=== PATIENT | male | born 1970 | race Caucasian/White ===

== ENCOUNTER 2017-03-03 14:37 | Inpatient (IN) | payer OTHER ==
[~2017-03-03] VITALS: Ht 172.7 cm; Wt 151.2 kg
[~2017-03-03 14:37] MED LIST: BACTRIM DS1 TAB PO; CITALOPRAM HYDR20 M1 PO; GLIPIZIDE5 MG PO; GLU500 PO; INSN SC; MEVACOR40 MG PO; NITROSTAT0.4 MG SL; PRINIVIL20 MG PO; ZOCOR20 MG PO
--- NOTE | 2017-03-03 16:13 | NUR ---
PT TO ED FOR EVAL OF R 4TH TOE PAIN. PT AWAKE AND ALERT. BREATHING EVEN UNLABORED. NO DISTRESS. PT TO H2 . SHOES REMOVED. WAITING MSE.
--- NOTE | 2017-03-03 16:40 | NUR ---
PT REQUESTING WATER. PT ALSO STS THAT HE IS NAUSEOUS. PT INFORMED THAT HE CANNOT HAVE WATER AT THIS TIME DUE TO THE NAUSEA. PT VERBALIZES UNDERSTANDING.
[2017-03-03 17:53] LABS: BASOPHIL % 0.2 % (0-2); PLATELET COUNT 306 x10^3mcL (130-400); RED CELL DISTRIBUTION WIDTH 13.4 % (11.5-14.5)
--- NOTE | 2017-03-03 17:55 | NUR ---
PT TO RADIOLOGY VIA WHEELCHAIR.
[2017-03-03 18:14] LABS: CALCIUM 8.7 mg/dL (8.5-10.1); CARBON DIOXIDE 24.6 mmol/L (21-32); CHLORIDE SERUM 103 mmol/L (98-107); GFR1 > 60 mL/min; GLUCOSE SERUM 226 mg/dL (74-106); POTASSIUM SERUM 4.1 mmol/L (3.5-5.1); SODIUM SERUM 132 mmol/L (136-145)
[2017-03-03 18:19] LABS: ALKALINE PHOSPHATASE 126 U/L (46-116); ALT/SGPT 24 U/L (16-63); AST/SGOT 19 U/L (15-37); BILIRUBIN TOTAL 0.29 mg/dL (0.20-1.00)
[2017-03-03 18:20] LABS: ALBUMIN 2.4 g/dL (3.4-5.0)
--- NOTE | 2017-03-03 19:40 | NUR ---
RECEIVED REPORT FROM DAY SHIFT RN. PT RESTING IN BED COMFORTABLY. AWAKE, ALERT AND ORIENTED. NO C/O PAIN AT THIS TIME. IV SALINE LOCK ON LAC. SAFETY MEASURES IN PLACE. SITTER AT BEDSIDE.
[2017-03-03 19:54] VITALS: BP 159/81
--- NOTE | 2017-03-03 20:08 | NUR ---
RECEIVED PATIENT FROM ED VIA TISH, A/O X 4 SPOUSE AT BEDSIDE, C/O PAIN TO R FOOT WILL MEDICATE ORDERED, TELE # 21 SR, ORIENTED PATIENT TO ROOM AND SURROUNDINGS, BED IN LOW POSITION, BED RAILS UP X 2, CALL LIGHT WITHIN REACH, WILL ENDORSE CARE TO PRIMARY NURSE JENNIFER BOWIE
[2017-03-03 20:14] LABS: T3 TOTAL 0.83 ng/mL
--- NOTE | 2017-03-03 20:15 | NUR ---
RECEIVED PT. PT RESTING IN BED WITH EYES CLOSED. C/O HEADACHE. REFUSED TYLENOL. PT STATES "JUST WANT TO EAT SOMETHING". IV ON LFA, INTACT. SAFETY MEASURES IN PLACE. INSTRUCTED PT TO CALL IF ASSISTANCE IS NEEDED. CALL LIGHT WITHIN REACH. AT BEDSIDE.
[2017-03-03 20:20] LABS: CHOLESTEROL/HDL RATIO 5.2; PHOSPHOROUS 2.4 mg/dL (2.5-4.9)
[2017-03-03 20:28] LABS: FREE T4 0.77 ng/dL (0.76-1.46)
[2017-03-03 20:30] LABS: FREE THYROXINE INDEX 1.3 ug/dL (1.4-4.5); T4(THYROXINE) 3.6 ug/dL (4.7-13.3)
[2017-03-04 06:15] VITALS: BP 150/79
[2017-03-04 06:52] LABS: CARBON DIOXIDE 24.6 mmol/L (21-32); CHLORIDE SERUM 108 mmol/L (98-107); CREATININE SERUM 0.7 mg/dL (0.7-1.3); GFR1 > 60 mL/min; GLUCOSE SERUM 100 mg/dL (74-106); PHOSPHOROUS 2.6 mg/dL (2.5-4.9); POTASSIUM SERUM 3.8 mmol/L (3.5-5.1); SODIUM SERUM 141 mmol/L (136-145)
[2017-03-04 06:54] LABS: BASOPHIL % 0.3 % (0-2); PLATELET COUNT 247 x10^3mcL (130-400); RED CELL DISTRIBUTION WIDTH 13.3 % (11.5-14.5)
--- NOTE | 2017-03-04 07:00 | NUR ---
PT SLEPT WELL DURING SHIFT. NO DISTRESS NOTED. SAFETY MEASURES MAINTAINED. ALL NEEDS ATTENDED TO. CALL LIGHT WITHIN REACH. WILL ENDORSE CONTINUITY OF CARE TO ONCOMING RN.
[2017-03-04 07:35] LABS: microscopic required? YES; urine erythrocyte 1+ (NEGATIVE)
[2017-03-04 07:42] LABS: AMPHETAMINE QUAL UR POSITIVE (NEG <=1000)
--- NOTE | 2017-03-04 08:00 | NUR ---
ALERT AND ORIENTED. BREATHING FREELY ON RA. RT FOR HX ASTHMA. NS INFUSING 100 CC HOUR. MOVES ALL EXTREMITIES FREELY. OBESE. TRACING NOTED TO RIGHT FOOT ABSCESS BETWEEN 4-5 DIGITS. DENIES PAIN AT THIS TIME. TELE # 21 NSR. CALL LIGHT WITHIN REACH.
[2017-03-04 09:44] VITALS: BP 154/85
[2017-03-04 13:11] VITALS: BP 150/78
--- NOTE | 2017-03-04 14:31 | NUR ---
DR. MARIANO TO PERFORM I&D ON RT FOOT ABSCESS. CONSENT SIGNED.
[2017-03-04 16:48] VITALS: Ht 172.7 cm; Wt 151.2 kg
[2017-03-04 17:25] VITALS: BP 136/76
--- NOTE | 2017-03-04 18:07 | NUR ---
PT HAS BEEN RESTING COMFORTABLY THIS SHIFT. SLEPT ALOT. FAMILY HAS BEEN AT BEDSIDE. NS INFUSING 100 CC HOUR. CONTINUES ON CLEOCIN AND LEVAQUIN IV ABX. INDEPENDENT W ADL'S. GETS UP TO BR. INSTRUCTED PT TO WEAR SOCKS OR HIS SHOES. NOT TO GET UP TO WALK BAREFOOT. DR. SIMMONS AND DR. CHAVEZ PERFORMED I&D TO RT FOOT BULLA. SPECIMEN WAS SENT TO LAB THIS AM FROM ABSCESS ASPIRATION BY DR. SIMMONS. NS INFUSING 100 CC HOUR. CALL LIGHT WITHIN REACH. PT ASKED IF HIS OLDEST SON COULD SPEND THE NIGHT IN THE CHAIR NEXT TO HIM FAMILY IS IN PROCESS OF MOVING AND SON WOULD HAVE TO SPEND THE NIGHT IN THE CAR. TOLD PT I WOULD ASK NIGHT CHARGE NURSE.
--- NOTE | 2017-03-04 19:28 | NUR ---
PT SEEN, RESTING IN THE BED, ALERT AND ORIENTED, DENIES HEADACHE OR DIZZINESS, BREATHING EVEN AND UNLABORED, NO SOB, LUNG SOUNDS CLEAR, ON ROOM AIR WITH NO RESP DISTRESS NOTED, ON TELE#21 NSR, DENIES CHEST PAIN, IVF INFUSING WELL, PULSES PALPABLE, NO EDEMA NOTED, MILD GENERALIZED WEAKNESS TO RLE, S/P EXCISIONAL DEBRIDEMENT TO RLE WITH EBER WRAP, ABD OBESE BUT NON-DISTENDED WITH ACTIVE BS, NO BM AT THIS TIME, DENIES ABD PAIN, VOIDING FREELY, NO DISTRESS NOTED, WILL KEEP TO MONITOR.
[2017-03-04 21:48] VITALS: BP 120/83
--- NOTE | 2017-03-05 02:52 | NUR ---
PT ASLEEP, BREATHING EVEN AND UNLABORED, NO SOB OR RESP DISTRESS NOTED, IVF INFUSING WELL, WILL KEEP TO MONITOR.
--- NOTE | 2017-03-05 05:19 | NUR ---
PT ASLEEP BUT EASILY AROUSABLE, SLEPT MOST OF NIGHT, MORNING BLOOD SUGAR-243 MG/DL WITH RISS 6 UNITS, DRESSING AND EBER WRAP TO RLE, IVF INFUSING WELL, CONDITION NO CHANGE, NO DISTRESS NOTED, WILL KEEP TO MONITOR.
[2017-03-05 06:00] VITALS: BP 112/52
[2017-03-05 06:26] VITALS: BP 133/79
--- NOTE | 2017-03-05 08:00 | NUR ---
ALERT AND ORIENTED. BREATHING FREELY ON RA. SON STAYED WITH PT LAST NIGHT. TELE # 21 NSR. NS INFUSING 100 CC HOUR. GOOD APPETITE WITH BREAKFAST. CONTACT ISOLATION FOR HX MRSA TO CLOSED WOUND 2 YEARS AGO. DENIES ANY PAIN. EBER WRAP TO RIGHT FOOT INTACT. INSTRUCTED PT NOT WALK ON FLOOR BARE FOOTED. NEEDS TO KEEP FOOT AND DRESSING CLEAN.
[2017-03-05 09:17] VITALS: BP 166/72
[2017-03-05] MEDS ORDERED: LEVAQUIN750 MG PO (14:04)
[2017-03-05 14:31] VITALS: BP 166/72
[2017-03-05] MEDS ORDERED: BLOOD GLUCOSE1 EACH MC (16:03)
[2017-03-05] MEDS ORDERED: LANCETS1 EAC2 MC (16:03)
[2017-03-05] MEDS ORDERED: FLORASTOR1 CAP PO (16:06)
--- NOTE | 2017-03-05 16:59 | NUR ---
IV DC'D TELE # 21 RETURNED TO TELE STATION. PT TO CALL [facility] TUESDAY FOR F/U JASE WITHIN 72 HOURS OF DC. PRESCRIPTIONS CALLED IN ESCRIPT. ALL DC INSTRUCTIONS REVIEWED WITH AND SIGNED BY PT. GAVE PT WOUND CARE DRESSING SUPPLIES AND INSTRUCTIONS ON APPLICATION.
== END 2017-03-05 18:00 | disposition home or self-care (01) | DRG 364 ==
LOC: ED 14:37 → DU 19:10
PROVIDERS: Emergency Medicine; ADMIT Family Medicine
PROC: 0JDQ0ZZ Extraction of Right Foot Subcutaneous Tissue and Fascia, Open Approach (ICD-10-PCS; principal; 2017-03-04)
DX: L03.115 Cellulitis of right lower limb (principal); E43 Unspecified severe protein-calorie malnutrition; R65.10 Systemic inflammatory response syndrome (SIRS) of non-infectious origin without acute organ dysfunction; E11.40 Type 2 diabetes mellitus with diabetic neuropathy, unspecified; E11.621 Type 2 diabetes mellitus with foot ulcer; E87.1 Hypo-osmolality and hyponatremia; E83.39 Other disorders of phosphorus metabolism; E11.65 Type 2 diabetes mellitus with hyperglycemia; E66.01 Morbid (severe) obesity due to excess calories; Z68.43 Body mass index [BMI] 50.0-59.9, adult; I16.0 Hypertensive urgency; E78.5 Hyperlipidemia, unspecified; J45.909 Unspecified asthma, uncomplicated; F32.9 Major depressive disorder, single episode, unspecified; F17.200 Nicotine dependence, unspecified, uncomplicated; L97.519 Non-pressure chronic ulcer of other part of right foot with unspecified severity; Z86.14 Personal history of Methicillin resistant Staphylococcus aureus infection; Z82.49 Family history of ischemic heart disease and other diseases of the circulatory system; Z72.89 Other problems related to lifestyle; Z83.3 Family history of diabetes mellitus
CPT/HCPCS: 82962; 83880; 84439; 94150; J0696; J1956; J2001; J2270; J2405; J3490; J7030; J7613; Q0092

== ENCOUNTER 2017-05-22 11:49 | Inpatient (IN) | payer OTHER ==
[~2017-05-22] VITALS: Ht 172.7 cm; Wt 159.2 kg
[~2017-05-22 11:49] MED LIST changes: +BLOOD GLUCOSE1 EACH MC; +FLORASTOR1 CAP PO; +LANCETS1 EAC2 MC; +LEVAQUIN750 MG PO
[2017-05-22 12:40] LABS: PLATELET COUNT 279 x10^3mcL (130-400); RED CELL DISTRIBUTION WIDTH 13.9 % (11.5-14.5)
[2017-05-22 12:41] LABS: BASOPHIL % 0 % (0-2); CALCIUM 8.2 mg/dL (8.5-10.1); CARBON DIOXIDE 27.3 mmol/L (21-32); CHLORIDE SERUM 99 mmol/L (98-107); CREATININE SERUM 1.2 mg/dL (0.7-1.3); GFR1 > 60 mL/min; GLUCOSE SERUM 226 mg/dL (74-106); SODIUM SERUM 132 mmol/L (136-145)
[2017-05-22 12:51] LABS: ALKALINE PHOSPHATASE 84 U/L (46-116); ALT/SGPT 15 U/L (16-63); AST/SGOT 11 U/L (15-37); BILIRUBIN TOTAL 0.2 mg/dL (0.20-1.00); TOTAL PROTEIN, SERUM 6.4 g/dL (6.4-8.2)
[2017-05-22 12:54] LABS: ALBUMIN 1.8 g/dL (3.4-5.0)
[2017-05-22 12:56] LABS: CK-MB 0.5 ng/mL (0-3.6)
[2017-05-22] MEDS ORDERED: LISINOPRIL2.5 MG (14:42)
[2017-05-22 14:52] LABS: CHOLESTEROL/HDL RATIO 4.1; MAGNESIUM 1.6 mg/dL (1.8-2.4); PHOSPHOROUS 1.5 mg/dL (2.5-4.9)
[2017-05-22 14:59] LABS: T3 TOTAL 0.59 ng/mL
[2017-05-22 15:02] LABS: FREE T4 0.87 ng/dL (0.76-1.46); FREE THYROXINE INDEX 1.7 ug/dL (1.4-4.5); T4(THYROXINE) 4.4 ug/dL (4.7-13.3)
[2017-05-22 16:05] VITALS: BP 150/70
[2017-05-22 18:45] VITALS: BP 165/63
[2017-05-22 21:38] VITALS: BP 111/62
[2017-05-23 02:00] VITALS: BP 111/62
[2017-05-23 05:22] VITALS: BP 123/57
[2017-05-23 07:32] LABS: CALCIUM 8.2 mg/dL (8.5-10.1); CARBON DIOXIDE 26.9 mmol/L (21-32); CHLORIDE SERUM 100 mmol/L (98-107); GFR1 > 60 mL/min; GLUCOSE SERUM 149 mg/dL (74-106); SODIUM SERUM 134 mmol/L (136-145)
[2017-05-23 07:48] LABS: BASOPHIL % 0.2 % (0-2); PLATELET COUNT 238 x10^3mcL (130-400); RED CELL DISTRIBUTION WIDTH 13.6 % (11.5-14.5)
[2017-05-23 09:34] VITALS: BP 133/66
[2017-05-23 13:42] VITALS: BP 128/66
[2017-05-23 16:25] VITALS: BP 120/60
[2017-05-23 21:33] VITALS: BP 109/52
[2017-05-24 06:49] VITALS: BP 115/62
[2017-05-24 06:57] LABS: BASOPHIL % 0.2 % (0-2); PLATELET COUNT 252 x10^3mcL (130-400); RED CELL DISTRIBUTION WIDTH 14.5 % (11.5-14.5)
[2017-05-24 07:12] LABS: CALCIUM 8.4 mg/dL (8.5-10.1); CARBON DIOXIDE 26.9 mmol/L (21-32); CHLORIDE SERUM 101 mmol/L (98-107); GFR1 > 60 mL/min; GLUCOSE SERUM 159 mg/dL (74-106); MAGNESIUM 2.4 mg/dL (1.8-2.4); PHOSPHOROUS 3.1 mg/dL (2.5-4.9); POTASSIUM SERUM 4.1 mmol/L (3.5-5.1); SODIUM SERUM 134 mmol/L (136-145)
[2017-05-24 09:51] VITALS: BP 139/68
[2017-05-24] MEDS ORDERED: LIPI10 PO (10:02)
[2017-05-24] MEDS ORDERED: ECO81 PO (10:03)
[2017-05-24] MEDS ORDERED: LAC PO (10:08)
[2017-05-24] MEDS ORDERED: CEPHALEXIN500 MG PO (10:13)
[2017-05-24] MEDS ORDERED: NORCO1 TA2 PO (10:37)
[2017-05-24] MEDS ORDERED: COL100 PO (10:39)
[2017-05-24 11:04] LABS: UA SPECIFIC GRAVITY 1.025 (1.005-1.035); microscopic required? YES; urine erythrocyte 1+ (NEGATIVE)
[2017-05-24 11:14] LABS: AMPHETAMINE QUAL UR NONE DETECTED (NEG <=1000)
[2017-05-24 11:47] VITALS: BP 139/68
[2017-05-24 14:29] VITALS: BP 130/69
== END 2017-05-24 15:15 | disposition home or self-care (01) | DRG 383 ==
LOC: ED 11:49 → DU 13:47
PROVIDERS: Emergency Medicine; ADMIT Family Medicine Sports Medicine
DX: L03.116 Cellulitis of left lower limb (principal); N17.0 Acute kidney failure with tubular necrosis; E43 Unspecified severe protein-calorie malnutrition; D68.69 Other thrombophilia; E11.51 Type 2 diabetes mellitus with diabetic peripheral angiopathy without gangrene; E87.1 Hypo-osmolality and hyponatremia; E11.65 Type 2 diabetes mellitus with hyperglycemia; Z68.43 Body mass index [BMI] 50.0-59.9, adult; I10 Essential (primary) hypertension; E78.5 Hyperlipidemia, unspecified; E83.42 Hypomagnesemia; E83.39 Other disorders of phosphorus metabolism; F17.210 Nicotine dependence, cigarettes, uncomplicated; Z53.29 Procedure and treatment not carried out because of patient's decision for other reasons; N50.819 Testicular pain, unspecified; E66.2 Morbid (severe) obesity with alveolar hypoventilation; Z59.0 Homelessness; Z79.4 Long term (current) use of insulin; Z79.84 Long term (current) use of oral hypoglycemic drugs; Z86.14 Personal history of Methicillin resistant Staphylococcus aureus infection; Z79.899 Other long term (current) drug therapy; Z83.3 Family history of diabetes mellitus; Z82.49 Family history of ischemic heart disease and other diseases of the circulatory system
CPT/HCPCS: 82962; 83880; 84439; 90658; 94150; J0696; J2270; J3475; J7030; J7620; Q0092

== ENCOUNTER 2017-05-27 18:24 | Emergency (ER) | payer OTHER ==
[~2017-05-27 18:24] MED LIST changes: +CEPHALEXIN500 MG PO; +COL100 PO; +ECO81 PO; +LAC PO; +LIPI10 PO; +LISINOPRIL2.5 MG; +NORCO1 TA2 PO
== END 2017-05-27 19:44 | disposition left against medical advice (07) ==
LOC: ED 18:24
DX: Z53.21 Procedure and treatment not carried out due to patient leaving prior to being seen by health care provider (principal)

== ENCOUNTER 2017-06-05 09:36 | Inpatient (IN) | payer OTHER ==
[~2017-06-05] VITALS: Ht 172.7 cm; Wt 161.0 kg
[2017-06-05 10:15] LABS: CALCIUM 8.6 mg/dL (8.5-10.1); CARBON DIOXIDE 31.1 mmol/L (21-32); CHLORIDE SERUM 104 mmol/L (98-107); CREATININE SERUM 0.8 mg/dL (0.7-1.3); GFR1 > 60 mL/min; GLUCOSE SERUM 165 mg/dL (74-106); SODIUM SERUM 136 mmol/L (136-145)
[2017-06-05 10:18] LABS: POTASSIUM SERUM 4.8 mmol/L (3.5-5.1)
[2017-06-05 10:19] LABS: BASOPHIL % 1.7 % (0-2); RED CELL DISTRIBUTION WIDTH 13.6 % (11.5-14.5)
[2017-06-05 10:21] LABS: ALKALINE PHOSPHATASE 201 U/L (46-116); ALT/SGPT 34 U/L (16-63); AST/SGOT 19 U/L (15-37); BILIRUBIN TOTAL 0.1 mg/dL (0.20-1.00)
[2017-06-05 10:22] LABS: ALBUMIN 1.5 g/dL (3.4-5.0)
[2017-06-05 10:29] LABS: PLATELET COUNT 753 x10^3mcL (130-400)
[2017-06-05 11:06] LABS: MAGNESIUM 1.6 mg/dL (1.8-2.4); PHOSPHOROUS 3.5 mg/dL (2.5-4.9)
[2017-06-05 11:09] LABS: T3 TOTAL 0.65 ng/mL
[2017-06-05 11:15] LABS: CHOLESTEROL/HDL RATIO 3.1
[2017-06-05 11:16] LABS: FREE T4 1.09 ng/dL (0.76-1.46); FREE THYROXINE INDEX 2.2 ug/dL (1.4-4.5); T4(THYROXINE) 5.3 ug/dL (4.7-13.3)
[2017-06-05 16:23] VITALS: BP 147/76
[2017-06-05 18:01] VITALS: BP 160/77
[2017-06-05 21:13] VITALS: BP 120/78
[2017-06-06 05:23] VITALS: BP 127/70
[2017-06-06 06:12] LABS: BASOPHIL % 0.5 % (0-2); RED CELL DISTRIBUTION WIDTH 14.1 % (11.5-14.5)
[2017-06-06 07:03] LABS: CALCIUM 8.8 mg/dL (8.5-10.1); CARBON DIOXIDE 29.1 mmol/L (21-32); CHLORIDE SERUM 103 mmol/L (98-107); GFR1 > 60 mL/min; GLUCOSE SERUM 137 mg/dL (74-106); MAGNESIUM 2.2 mg/dL (1.8-2.4); PHOSPHOROUS 4.6 mg/dL (2.5-4.9); POTASSIUM SERUM 5.1 mmol/L (3.5-5.1); SODIUM SERUM 137 mmol/L (136-145)
[2017-06-06 07:34] LABS: PLATELET COUNT 683 x10^3mcL (130-400)
[2017-06-06 08:37] LABS: UA SPECIFIC GRAVITY 1.025 (1.005-1.035); microscopic required? YES; urine erythrocyte 1+ (NEGATIVE)
[2017-06-06 09:00] LABS: AMPHETAMINE QUAL UR NONE DETECTED (NEG <=1000)
[2017-06-06 09:12] VITALS: BP 136/71
[2017-06-06 14:11] VITALS: BP 132/49
[2017-06-06 16:30] VITALS: BP 131/68
[2017-06-07 05:50] VITALS: BP 130/76
[2017-06-07 06:11] LABS: CALCIUM 9.1 mg/dL (8.5-10.1); CARBON DIOXIDE 32.1 mmol/L (21-32); CHLORIDE SERUM 99 mmol/L (98-107); CREATININE SERUM 1.1 mg/dL (0.7-1.3); GFR1 > 60 mL/min; GLUCOSE SERUM 326 mg/dL (74-106); MAGNESIUM 1.7 mg/dL (1.8-2.4); PHOSPHOROUS 4.3 mg/dL (2.5-4.9); POTASSIUM SERUM 4.9 mmol/L (3.5-5.1); SODIUM SERUM 135 mmol/L (136-145)
[2017-06-07 06:41] LABS: BASOPHIL % 0.2 % (0-2); PLATELET COUNT 696 x10^3mcL (130-400); RED CELL DISTRIBUTION WIDTH 13.7 % (11.5-14.5)
[2017-06-07 09:30] VITALS: BP 124/70
[2017-06-07 14:39] VITALS: BP 103/35
[2017-06-07 16:54] VITALS: BP 136/59
[2017-06-07 21:36] VITALS: BP 126/73
[2017-06-08 06:07] LABS: BASOPHIL % 0.3 % (0-2); RED CELL DISTRIBUTION WIDTH 13.6 % (11.5-14.5)
[2017-06-08 06:23] LABS: CALCIUM 8.7 mg/dL (8.5-10.1); CARBON DIOXIDE 32.4 mmol/L (21-32); CHLORIDE SERUM 102 mmol/L (98-107); CREATININE SERUM 1.2 mg/dL (0.7-1.3); GFR1 > 60 mL/min; GLUCOSE SERUM 299 mg/dL (74-106); MAGNESIUM 1.9 mg/dL (1.8-2.4); PHOSPHOROUS 3.4 mg/dL (2.5-4.9); POTASSIUM SERUM 4.7 mmol/L (3.5-5.1); SODIUM SERUM 137 mmol/L (136-145)
[2017-06-08 06:38] VITALS: BP 166/61
[2017-06-08 06:58] LABS: PLATELET COUNT 659 x10^3mcL (130-400)
[2017-06-08 09:39] VITALS: BP 162/81
[2017-06-08 10:07] VITALS: BP 144/71
[2017-06-08] MEDS ORDERED: CLA10 PO ×2 (11:27→14:25)
[2017-06-08] MEDS ORDERED: LEVAQUIN750 MG PO ×2 (11:28→14:25)
[2017-06-08] MEDS ORDERED: METOPROLOL TART25 M1 PO ×2 (11:32→14:25)
[2017-06-08] MEDS ORDERED: ROBDML PO (11:35)
[2017-06-08] MEDS ORDERED: MONTELUKAST SOD10 M1 PO (11:36)
[2017-06-08] MEDS ORDERED: LAC PO ×2 (11:36→14:25)
[2017-06-08] MEDS ORDERED: MEDDP PO ×2 (11:37→14:25)
[2017-06-08] MEDS ORDERED: MYCP TOP ×2 (11:38→14:25)
[2017-06-08] MEDS ORDERED: ADV250/50 INH ×2 (11:49→14:25)
[2017-06-08 12:12] VITALS: BP 144/71
[2017-06-08] MEDS ORDERED: LISINOPRIL2.5 MG PO (14:25)
[2017-06-08] MEDS ORDERED: CITALOPRAM HYDR20 M1 PO (14:25)
[2017-06-08] MEDS ORDERED: COL100 PO (14:25)
[2017-06-08] MEDS ORDERED: ECO81 PO (14:25)
[2017-06-08] MEDS ORDERED: LIPI10 PO (14:25)
[2017-06-08] MEDS ORDERED: GLU500 PO (14:25)
[2017-06-08] MEDS ORDERED: BLOOD GLUCOSE1 EACH MC (14:25)
[2017-06-08] MEDS ORDERED: VAS TOP (14:26)
== END 2017-06-08 14:57 | disposition home or self-care (01) | DRG 133 ==
LOC: ED 09:36 → DU 10:27 → MU 06-08 06:23
PROVIDERS: Emergency Medicine; Family Medicine; ADMIT Family Medicine Sports Medicine
DX: J96.01 Acute respiratory failure with hypoxia (principal); N17.0 Acute kidney failure with tubular necrosis; J69.0 Pneumonitis due to inhalation of food and vomit; E43 Unspecified severe protein-calorie malnutrition; D68.69 Other thrombophilia; E11.51 Type 2 diabetes mellitus with diabetic peripheral angiopathy without gangrene; E11.65 Type 2 diabetes mellitus with hyperglycemia; L03.115 Cellulitis of right lower limb; I10 Essential (primary) hypertension; E78.5 Hyperlipidemia, unspecified; Z68.43 Body mass index [BMI] 50.0-59.9, adult; M94.0 Chondrocostal junction syndrome [Tietze]; L03.116 Cellulitis of left lower limb; E20.8 Other hypoparathyroidism; F32.9 Major depressive disorder, single episode, unspecified; L30.4 Erythema intertrigo; Z79.4 Long term (current) use of insulin; Z59.0 Homelessness; Z79.84 Long term (current) use of oral hypoglycemic drugs; Z86.14 Personal history of Methicillin resistant Staphylococcus aureus infection; F17.210 Nicotine dependence, cigarettes, uncomplicated; E66.2 Morbid (severe) obesity with alveolar hypoventilation
CPT/HCPCS: 36600; 82962; 83880; 84439; 94150; J0690; J0696; J1644; J1815; J1940; J2405; J2543; J2920; J2930; J3010; J3475; J7030; J7620; J7626; Q0092

== ENCOUNTER 2017-06-17 07:50 | Emergency (ER) | payer OTHER ==
[~2017-06-17] VITALS: Ht 172.7 cm; Wt 161.1 kg
[~2017-06-17 07:50] MED LIST changes: +ADV250/50 INH; +CLA10 PO; +LISINOPRIL2.5 MG PO; +MEDDP PO; +METOPROLOL TART25 M1 PO; +MONTELUKAST SOD10 M1 PO; +MYCP TOP; +ROBDML PO; +VAS TOP
[2017-06-17 08:44] LABS: PLATELET COUNT 357 x10^3mcL (130-400); RED CELL DISTRIBUTION WIDTH 13.6 % (11.5-14.5)
[2017-06-17 08:47] LABS: CALCIUM 8.9 mg/dL (8.5-10.1); CARBON DIOXIDE 32.6 mmol/L (21-32); CHLORIDE SERUM 103 mmol/L (98-107); CREATININE SERUM 0.9 mg/dL (0.7-1.3); GFR1 > 60 mL/min; GLUCOSE SERUM 252 mg/dL (74-106); POTASSIUM SERUM 4.9 mmol/L (3.5-5.1); SODIUM SERUM 138 mmol/L (136-145)
[2017-06-17 08:48] LABS: BASOPHIL % 0 % (0-2)
[2017-06-17 08:59] LABS: ALKALINE PHOSPHATASE 145 U/L (46-116); ALT/SGPT 19 U/L (16-63); AMYLASE 34 U/L (25-115); AST/SGOT 10 U/L (15-37); BILIRUBIN TOTAL 0.21 mg/dL (0.20-1.00); CHOLESTEROL 141 mg/dL (<200); HDL CHOLESTEROL 46 mg/dL (40-60); LIPASE 156 IU/L (73-393); MAGNESIUM 1.8 mg/dL (1.8-2.4); TOTAL PROTEIN, SERUM 7.2 g/dL (6.4-8.2)
[2017-06-17 09:00] LABS: ALBUMIN 1.9 g/dL (3.4-5.0); T4(THYROXINE) 4.5 ug/dL (4.7-13.3)
[2017-06-17 09:55] LABS: AMPHETAMINE QUAL UR NONE DETECTED (NEG <=1000)
[2017-06-17 09:58] LABS: microscopic required? YES; urine erythrocyte 1+ (NEGATIVE)
[2017-06-17 10:27] VITALS: BP 172/98
== END 2017-06-17 10:35 | disposition home or self-care (01) ==
LOC: ED 07:50
PROVIDERS: Emergency Medicine
DX: I11.0 Hypertensive heart disease with heart failure (principal); I50.9 Heart failure, unspecified; E11.65 Type 2 diabetes mellitus with hyperglycemia; E78.00 Pure hypercholesterolemia, unspecified; E66.01 Morbid (severe) obesity due to excess calories; J44.1 Chronic obstructive pulmonary disease with (acute) exacerbation; F19.10 Other psychoactive substance abuse, uncomplicated; I73.9 Peripheral vascular disease, unspecified; Z79.4 Long term (current) use of insulin
CPT/HCPCS: 36600; 82962; 83880; J1940; Q0092; Q9967

== ENCOUNTER 2017-06-28 21:07 | Observation (INO) | payer OTHER ==
[~2017-06-28] VITALS: Ht 172.7 cm; Wt 161.1 kg
[2017-06-28 22:27] LABS: BASOPHIL % 0.2 % (0-2); PLATELET COUNT 388 x10^3mcL (130-400); RED CELL DISTRIBUTION WIDTH 14.2 % (11.5-14.5)
[2017-06-28 22:38] LABS: CALCIUM 8.8 mg/dL (8.5-10.1); CARBON DIOXIDE 32.1 mmol/L (21-32); CHLORIDE SERUM 105 mmol/L (98-107); GFR1 > 60 mL/min; GLUCOSE SERUM 213 mg/dL (74-106); POTASSIUM SERUM 4.7 mmol/L (3.5-5.1); SODIUM SERUM 140 mmol/L (136-145)
[2017-06-28 22:41] LABS: UA SPECIFIC GRAVITY 1.025 (1.005-1.035); microscopic required? YES; urine erythrocyte 2+ (NEGATIVE)
[2017-06-28 22:53] LABS: ALKALINE PHOSPHATASE 144 U/L (46-116); ALT/SGPT 23 U/L (16-63); AST/SGOT 10 U/L (15-37); BILIRUBIN TOTAL 0.2 mg/dL (0.20-1.00); FREE T4 0.72 ng/dL (0.76-1.46); TOTAL PROTEIN, SERUM 6.9 g/dL (6.4-8.2)
[2017-06-28 22:57] LABS: ALBUMIN 2.1 g/dL (3.4-5.0)
[2017-06-29 00:35] LABS: CHOLESTEROL/HDL RATIO 4.4; MAGNESIUM 1.9 mg/dL (1.8-2.4); PHOSPHOROUS 3.6 mg/dL (2.5-4.9)
[2017-06-29 00:42] LABS: FREE T4 0.74 ng/dL (0.76-1.46)
[2017-06-29 00:43] VITALS: BP 154/79
[2017-06-29 00:47] LABS: FREE THYROXINE INDEX 1.7 ug/dL (1.4-4.5); T4(THYROXINE) 4.4 ug/dL (4.7-13.3)
[2017-06-29 00:52] VITALS: BP 154/79
[2017-06-29 01:00] LABS: T3 TOTAL 1.02 ng/mL
[2017-06-29 01:05] LABS: AMPHETAMINE QUAL UR NONE DETECTED (NEG <=1000)
[2017-06-29 05:58] VITALS: BP 104/61
[2017-06-29 09:25] VITALS: BP 151/83
[2017-06-29] MEDS ORDERED: BACTRIM DS1 TAB PO (13:06)
[2017-06-29] MEDS ORDERED: LAC PO (13:06)
[2017-06-29 13:46] VITALS: BP 151/83
[2017-06-29 13:56] VITALS: BP 151/60
== END 2017-06-29 14:33 | disposition home or self-care (01) | DRG 143 ==
LOC: ED 21:07 → DU 23:33 → EDBEDREQ 23:34 → DU 06-29 00:25
PROVIDERS: Emergency Medicine; ADMIT Family Medicine Sports Medicine
DX: E66.2 Morbid (severe) obesity with alveolar hypoventilation (principal); N17.0 Acute kidney failure with tubular necrosis; E43 Unspecified severe protein-calorie malnutrition; E11.51 Type 2 diabetes mellitus with diabetic peripheral angiopathy without gangrene; E11.65 Type 2 diabetes mellitus with hyperglycemia; Z68.43 Body mass index [BMI] 50.0-59.9, adult; N39.0 Urinary tract infection, site not specified; I16.0 Hypertensive urgency; I10 Essential (primary) hypertension; D64.9 Anemia, unspecified; F17.210 Nicotine dependence, cigarettes, uncomplicated; F12.10 Cannabis abuse, uncomplicated; Z79.4 Long term (current) use of insulin; Z79.84 Long term (current) use of oral hypoglycemic drugs; Z59.0 Homelessness
CPT/HCPCS: 82962; 83880; 84439; 94150; G0378; J0696; J1815; J1940; J7030; J7620; Q0092

== ENCOUNTER 2017-06-30 | Emergency (ER) | payer OTHER ==
[2017-06-30 00:38] LABS: BASOPHIL % 0.4 % (0-2)
[2017-06-30 00:41] LABS: PLATELET COUNT 424 x10^3mcL (130-400); RED CELL DISTRIBUTION WIDTH 14.7 % (11.5-14.5)
[2017-06-30 00:42] LABS: CALCIUM 8.9 mg/dL (8.5-10.1); CARBON DIOXIDE 31.2 mmol/L (21-32); CHLORIDE SERUM 103 mmol/L (98-107); CREATININE SERUM 0.8 mg/dL (0.7-1.3); GFR1 > 60 mL/min; GLUCOSE SERUM 251 mg/dL (74-106); POTASSIUM SERUM 4.7 mmol/L (3.5-5.1); SODIUM SERUM 139 mmol/L (136-145)
[2017-06-30 00:45] LABS: ALKALINE PHOSPHATASE 162 U/L (46-116); ALT/SGPT 21 U/L (16-63); AST/SGOT 11 U/L (15-37); BILIRUBIN TOTAL 0.2 mg/dL (0.20-1.00); CHOLESTEROL 178 mg/dL (<200); CHOLESTEROL/HDL RATIO 4.6; HDL CHOLESTEROL 39 mg/dL (40-60); LIPASE 161 IU/L (73-393); TOTAL PROTEIN, SERUM 7.1 g/dL (6.4-8.2); TRIGLYCERIDES 138 mg/dL (<150)
[2017-06-30 00:46] LABS: ALBUMIN 2.3 g/dL (3.4-5.0)
[2017-06-30 01:09] LABS: FREE T4 0.67 ng/dL (0.76-1.46)
[2017-06-30 01:12] LABS: FREE THYROXINE INDEX 1.2 ug/dL (1.4-4.5); T3 TOTAL 0.81 ng/mL; T4(THYROXINE) 3.3 ug/dL (4.7-13.3)
[2017-06-30 04:31] LABS: PHOSPHOROUS 4.1 mg/dL (2.5-4.9)
[2017-06-30 04:31] LABS: microscopic required? YES; urine erythrocyte 1+ (NEGATIVE)
[2017-06-30 04:44] LABS: AMPHETAMINE QUAL UR NONE DETECTED (NEG <=1000)
[2017-06-30 14:30] VITALS: BP 160/78
== END 2017-06-30 14:30 | disposition home or self-care (01) ==
LOC: ED
PROVIDERS: Family Medicine Sports Medicine; Specialist
DX: I50.9 Heart failure, unspecified (principal); J45.909 Unspecified asthma, uncomplicated; E11.9 Type 2 diabetes mellitus without complications; Z79.4 Long term (current) use of insulin; Z79.84 Long term (current) use of oral hypoglycemic drugs
CPT/HCPCS: 82962; 83880; 84439; J1940; Q0092

== ENCOUNTER 2017-06-30 16:56 | Emergency (ER) | payer OTHER ==
[2017-06-30 17:01] VITALS: BP 168/101
== END 2017-06-30 18:31 | disposition left against medical advice (07) ==
LOC: ED 16:56
DX: J44.1 Chronic obstructive pulmonary disease with (acute) exacerbation (principal); I50.9 Heart failure, unspecified; E66.2 Morbid (severe) obesity with alveolar hypoventilation; E11.9 Type 2 diabetes mellitus without complications; F32.9 Major depressive disorder, single episode, unspecified

== ENCOUNTER 2017-06-30 19:19 | Inpatient (IN) | payer OTHER ==
[~2017-06-30] VITALS: Ht 172.7 cm; Wt 165.1 kg
--- NOTE | 2017-06-30 19:34 | NUR ---
PT RE-PRESENTS WITH SAME SOB COMPLAINT HE HAD EARLIER TODAY. STATES HE CANT HAVE A CPAP MACHINE UNTIL TUESDAY WHEN HE SEES HIS PCP. STATES:WILL NOT MAKE IT TILL THEN". rr SOMEWHAT SHALLOW/18/ SAT 93% ON RA.
--- NOTE | 2017-06-30 20:14 | NUR ---
PT WALKED TO BR TALKING/JOKING-NO SOB NOTED.
--- NOTE | 2017-06-30 21:20 | NUR ---
RECEIVED PT FROM ED VIA TISH, CAME IN DUE TO SOB. STATED THAT HE A PCP APPOINTMENT ON TUESDAY FOR HIS CPAP. AAOX4. DENIES HEADACHE/DIZZINESS. C/O SOB ON EXERTION AND WHEN LYING FLAT IN BED. C/O PRODUCTIVE COUGH, EXPECTORATES CLEAR PHLEGM. LUNG SOUNDS DIMINISHED ON THE BASES, PLACED ON 2LPM/NC. SHALLOW BREATHS NOTED. DENIES CHEST PAIN/PRESSURE, SR W/ BBB. DENIES ABDOMINAL DISCOMFORT. W/ +3 EDEMA ON BLE. WEAK PEDAL PULSES. W/ REDNESS ON BLE. SIDE RAILS UPX2. CALL LIGHT ON REACH. WILL ENDORSE TO PRIMARY NURSE MILLY FOR CONTINUITY OF CARE.
[2017-06-30 21:33] VITALS: BP 180/100
--- NOTE | 2017-06-30 21:55 | NUR ---
BEDSIDE HAND OFF RECEIVED FROM RESOURCE NURSE ROCKY. PATIENT IS ALERT AND ORIENTED X4, ON OXYGEN, MILD SOB ON EXERTION, RT AT BEDSIDE EVALUATING PATIENT READY TO SAL UP BIPAP MACHINE. PATIENT ACQUIANTED TO BEDSIDE EQUIPMENTS AND UNIT POLICIES. SAFETY PRECAUTIONS INITIATED. WILL CONTINUE TO MONITOR.
[2017-06-30 22:12] LABS: CHOLESTEROL/HDL RATIO 4.6; MAGNESIUM 1.7 mg/dL (1.8-2.4); PHOSPHOROUS 3.7 mg/dL (2.5-4.9)
[2017-06-30 22:30] VITALS: BP 154/78
--- NOTE | 2017-06-30 22:50 | NUR ---
ADMINISTER MAGNESIUM SULFATE 2 GRAM FOR MAG LEVEL OF 1.7. PATIENT INFORMED.
[2017-06-30 22:51] LABS: T3 TOTAL 0.9 ng/mL
[2017-06-30 22:54] LABS: FREE T4 0.66 ng/dL (0.76-1.46); FREE THYROXINE INDEX 1.8 ug/dL (1.4-4.5); T4(THYROXINE) 4.5 ug/dL (4.7-13.3)
--- NOTE | 2017-07-01 | NUR ---
ROUNDS MADE PATIENT SLEEPING QUIETLY THIS TIME, NO RESP. DISTRESS, ON BIPAP AT 12/6, RATE 12, FIO2=25, TOLERATING WELL, SAT 96-98%. NSR ON THE MONITOR. IV SITE NO SIGN OF INFILTRATION. PATIENT INFORMED ABOUT SAFETY. WILL CONTINUE TO MONITOR.
--- NOTE | 2017-07-01 06:16 | NUR ---
VOIDED COLLECTED UA.REFUSED SCD APPLIED NOW.WILL ENDORSE TO AM NURSE.
[2017-07-01 06:20] VITALS: BP 149/78
--- NOTE | 2017-07-01 06:29 | NUR ---
SLEPT GOOD AND RESTED WELL DURING THE SHIFT. PATIENT NO RESP,. DISTRESS ENCOUNTERED, BIPAP MAINTAINED AT SAME SETTING AT 12/6, 12 AND FIO2=25%, SAT 95%. SR. IV SITE NO SIGN OF INFILTRATION. AMBULATED WITH STEADY GAIT. SAFETY PRECAUTIONS MAINTAINED. WILL ENDORSE CONTINUITY OF CARE TO INCOMING NURSE.
--- NOTE | 2017-07-01 07:17 | NUR ---
BEDSIDE REPORT AND INTRODUCTION PERFORED WITH INCOMING NURSE RAO.
--- NOTE | 2017-07-01 07:50 | NUR ---
RECEIVED PT IN BED, A/A/O X 4, CALM, COOPERATIVE. ON TELE # 6, SR WITH BBB, HR 74. DENIES ANY PAIN OR DISCOMFORT AT THIS TIME. GARY RADIAL PULSES MODERATE, GARY PEDAL PULSES WEAK, EDEMA +3 ON BLE, CAP REFILL < 3 SECS, SCD IN PLACE. BUL CLEAR, BLL DIM, CHEST RISING EVENLY, SPO2 96% ON 2LPM/NC, NO RESPIRATORY DISTRESS NOTED, USES BIPAP AT NOC. VOIDS FREELY, NO DYSURIA. AMBULATES WITH SLOW GAIT AND NO BALANCE IMPAIRMENT. REDDENED SKIN ON BLE, WARM AND DRY, NO PAIN. IV SITE AT [facility], RUNNING NS 60 ML/HR. SIDE RAILS UP X 2, BED IN LOW POSITION, CALL LIGHT WITHIN REACH. WILL CONTINUE TO MONITOR.
[2017-07-01 08:08] LABS: AMPHETAMINE QUAL UR NONE DETECTED (NEG <=1000)
[2017-07-01 08:13] LABS: UA SPECIFIC GRAVITY 1.025 (1.005-1.035); microscopic required? YES; urine erythrocyte 1+ (NEGATIVE)
--- NOTE | 2017-07-01 09:03 | NUR ---
DR JOSUE, RESIDENTS, CHARGE NURSE, AND ASSIGNED NURSE CAME IN TO SEE PT; DISCUSSED PLAN OF CARE FOR TODAY. ALL QUESTIONS WERE ANSWERED, PT VERBALIZED UNDERSTANDING.
[2017-07-01 09:35] VITALS: BP 139/70
--- NOTE | 2017-07-01 11:30 | NUR ---
PT IN BED, WATCHING TV, NO RESPIRATORY DISTRESS, PAIN, OR DISCOMFORT NOTED. WILL CONTINUE TO MONITOR.
--- NOTE | 2017-07-01 13:20 | NUR ---
PT IN BED, RESTING COMFORTABLY. PT HAS THE BIPAP ON. NO RESPIRATORY DISTRESS, PAIN, OR DISCOMFORT NOTED. WILL CONTINUE TO MONITOR.
[2017-07-01 13:49] VITALS: BP 155/73
--- NOTE | 2017-07-01 15:45 | NUR ---
PT IN BED, WATCHING TV, SON BY BEDSIDE. NO RESPIRATORY DISTRESS, PAIN, OR DISCOMFORT NOTED. WILL CONTINUE TO MONITOR.
[2017-07-01 17:35] VITALS: BP 160/73
--- NOTE | 2017-07-01 17:50 | NUR ---
PT JUST HAD A SHOWER, AND SITTING ON A CHAIR, SON BY BEDSIDE. NO RESPIRATORY DISTRESS, PAIN, OR DISCOMFORT NOTED. WILL ENDORSE TO NOC SHIFT.
[2017-07-01 19:30] VITALS: BP 147/63
--- NOTE | 2017-07-01 19:30 | NUR ---
RECEIVED PT AWAKE ALERT AND VERBALLY RESPONSIVE.BREATHING EASY AND NON-LABORED.ON ROOMAIR AFTER SHOWER AND TOLERATED WELL.BACK TO BED AND USED BIPAP WITH SETTING 12/6 RATE 12 FIO2 25%.REPORTS OF ON AND OFF COUGHING TO SMALL WHITISH COLORED PHLEGM.DENIES CHESTPAIN.BP 147/63 MMHG,HR 96.EDEMA TO BLE WITH SOME REDNESS.WILL CONTINUE TO MONITOR.
--- NOTE | 2017-07-01 21:37 | NUR ---
PT C/O CHESTPAIN DESCRIBE SOME "HEAVINESS OR BEING PUNCHED" BUT GOES AWAY WHEN HE PUTS ON HIS BIPAP.PT ALSO NOTED WITH ON AND OFF COUGHING.BP 165/76 MMHG,HR 100.NO SIGNIFICANT CHANGES IN TELE READING.DR. GRACIA MADE AWARE.WILL ORDER EKG AND TROPONIN PER MD.WILL CONTINUE TO MONITOR.
[2017-07-01 21:40] VITALS: BP 165/76
--- NOTE | 2017-07-01 23:00 | NUR ---
PT DENIES CHESTPAIN AT THIS TIME.TROPONIN DONE (-),EKG SHOWS ST.BIPAP IN USE AND TOLERATING WELL.WILL CONTINUE TO MONITOR.
--- NOTE | 2017-07-02 04:49 | NUR ---
PT SLEPT WELL WITH USE OF BIPAP ALL NIGHT.BREATHING EASY AND NON-LABORED WITH ON AND OFF COUGHING.BREATHING TREATMENT GIVEN BY RT ORDERED.DENIES ANY MORE CHESTPAIN SINCE LAST NIGHT.ALL NEEDS MET.WILL CONTINUE TO MONITOR.
[2017-07-02 06:11] VITALS: BP 158/76
[2017-07-02 08:00] VITALS: BP 148/69
--- NOTE | 2017-07-02 08:00 | NUR ---
PT AWAKE AND ALERT. TEMP 98.7. TELE #6 SINUS RHYTHM BBB RATE 97. DENIES CHEST DISCOMFORT. LATEST TROPONIN 0.501. CONSULT FOR THIS AM WITH DR SALAZAR CHLORINE CELL TENDER. RESP 20 EVEN. BREATH SOUNDS CLEAR. OCCASIONAL NPC. CPAP IN PLACE SETTINGS:RATE 12, FI02=25%. HOB ELEVATED. CONTINUES TO RECEIVE RT TX ORDERED. ABD DISTENDED AND FIRM, BOWEL TONES PRESENT. VOIDING QS. EDEMA 2+ BLE. ELEVATED ON PILLOWS. SCD APPLIED. PULSES PRESENT. DENIES NUMBNESS OR TINGLING TO EXTREMITIES. IV PATENT RAC INFUSING NORMAL SALINE 50CC/HR. SIDE RAILS UP X2. CALL LIGHT IN REACH. STRUCTURAL ENGINEERING TECHNICIAN REPORTS HAD SHORT RUN OF VTACH NOTED DURING RT TX. PT CONTINUES TO DENY CHEST DISCOMFORT. RB=170/69. WILL CONTINUE TO MONITOR.
--- NOTE | 2017-07-02 08:30 | NUR ---
DR SALAZAR HERE. DISCUSSED WITH PATIENT ELEVATION OF TROPONIN LEVEL WITH SECOND DRAW TO 0.501. DISCUSSED NEED FOR ANGIOGRAM IF LEVELS CONTINUE TO RISE. ADDITIONAL 3RD TROPONIN LEVEL ORDERED. IF LEVELS DECLINE MAY POSTPONE ANGIOGRAM. PT VERBALIZED UNDERSTANDING. PT PREFERS TO WEAR CPAP MOST OF THE TIME, OFF FOR MEALS AND BATHROOM NEEDS.
--- NOTE | 2017-07-02 11:15 | NUR ---
SBC=[id number]. RISS COVERAGE [address] HOUSER HERE. UPDATED WITH PT STATUS. IV CONVERTED TO SALINE LOCK. PT AMBULATED WELL IN HALLWAY AROUND NURSES STATION 2 SOUTH AROUND [facility] AND BACK TO ROOM. PULSE OX RANGED 95-96% RA. MILD SOB WITH EXERTION. RETURNED TO ROOM. PT CONTINUES ON ROOM AIR. USES CPAP NEEDED DURING THE DAY. SON AT BEDSIDE.
--- NOTE | 2017-07-02 12:10 | NUR ---
DR SIMMONS AND MEDICAL TEAM IN ON ROUNDS. DISCUSSED PLAN OF CARE. NEED FOR REPEAT SERIAL TROPONIN LEVELS. PT DENIES CHEST DISCOMFORT. SITTING UP AT BEDSIDE FOR LUNCH MEAL. CALL LIGHT IN REACH. VERBALIZED UNDERSTANDING OF TX PLAN.
[2017-07-02 13:50] VITALS: BP 153/60
--- NOTE | 2017-07-02 14:30 | NUR ---
TROPONIN LEVEL 0.344 TRENDING DOWN. DENIES CHEST DISCOMFORT.
[2017-07-02 17:25] VITALS: BP 134/71
--- NOTE | 2017-07-02 17:30 | NUR ---
DFC=[id number]. RISS COVERAGE 12 UNITS SQ. AMBULATES WELL IN HALLWAY. SOB WITH EXERTION BUT PULSE OX RANGES 95-97%. USES OXYGEN 2L NC AFTER EXERTION. USES BIPAP INTERMITTANTLY. DENIES CHEST PAIN. CALL LIGHT IN REACH.
--- NOTE | 2017-07-02 19:50 | NUR ---
RECEIVED REPORT FROM DAY SHIFT RN. PT RESTING IN BED. NO RESPIRATORY DISTRESS ON ROOM AIR. NO C/O PAIN AT THIS TIME. IV ON RAC, INTACT. SAFETY MEASURES IN PLACE. BED IN LOWEST POSITION. SIDE RAILS UP X2. INSTRUCTED PT TO CALL IF ASSISTANCE IS NEEDED. CALL LIGHT WITHIN REACH.
[2017-07-02 21:35] VITALS: BP 144/55
[2017-07-03] VITALS (7 sets, daily range): BP systolic 130–146; BP diastolic 62–78
--- NOTE | 2017-07-03 07:00 | NUR ---
PT SLEPT WELL DURING SHIFT. NO C/O PAIN. NO RESPIRATORY DISTRESS ON BIPAP LAST NIGHT. SAFETY MEASURES MAINTAINED. BED IN LOWEST POSITION. SIDE RAILS UP X2. CALL LIGHT WITHIN REACH. WILL ENDORSE CARE TO ONCOMING RN.
--- NOTE | 2017-07-03 08:00 | NUR ---
A/A/OX3. DENIED PAIN. TELE#6 = SR; HR =84. DENIED CHEST PAIN. BREATHING SOUND DIMINISHED, BUT CLEAR GARY. O2 SAT 93% ON RA. USE C-PAP AT SLEEPING. OBESITY. AMBULATORY. EDEMA 3+ BLE. IVHL'D TO RAC. FINISHED 100% OF [facility] BREAKFAST. CALL LIGHT IN REACH.
--- NOTE | 2017-07-03 09:20 | NUR ---
DR. SIMMONS AND MEDICAL TEAM MADE MORNING ROUND. PLAN OF CARE DISCUSSED WITH PATIENT, INCLUDED POSSIBLE DISCHARGE IF CLEARED WITH DR. MCDONOUGH. PATIENT AGREED WITH PLAN OF CARE.
--- NOTE | 2017-07-03 11:47 | NUR ---
EDEMA TO BLE 3+; LASIX 40MG IVP GIVEN PER ORDER.
--- NOTE | 2017-07-03 18:13 | NUR ---
STATED HAD URINATION X3 AND BM X3 VIA BRP. SLEEPING WITH C-PAP MOSTLY. CONDITION STABLE, NO SIGNIFICANT CHANGE. ENDORSED CARE TO NOC NURSE.
--- NOTE | 2017-07-03 19:50 | NUR ---
RECEIVED REPORT FROM DAY SHIFT RN. PT RESTING IN BED. NO RESP DISTRESS ON BIPAP. NO C/O PAIN AT THIS TIME. IV ON RAC, SALINE LOCK. SAFETY MEASURES IN PLACE. BED IN LOWEST POSITION. SIDE RAILS UP X2. INSTRUCTED PT TO CALL IF ASSISTANCE IS NEEDED. CALL LIGHT WITHIN REACH.
[2017-07-04 05:26] VITALS: BP 145/67
[2017-07-04 06:47] LABS: BASOPHIL % 0.3 % (0-2); PLATELET COUNT 379 x10^3mcL (130-400)
[2017-07-04 07:03] LABS: RED CELL DISTRIBUTION WIDTH 14.8 % (11.5-14.5)
[2017-07-04 07:11] LABS: CALCIUM 9.1 mg/dL (8.5-10.1); CARBON DIOXIDE 31.7 mmol/L (21-32); CHLORIDE SERUM 103 mmol/L (98-107); CREATININE SERUM 1.1 mg/dL (0.7-1.3); GFR1 > 60 mL/min; GLUCOSE SERUM 197 mg/dL (74-106); SODIUM SERUM 138 mmol/L (136-145)
[2017-07-04 07:12] LABS: POTASSIUM SERUM 5.7 mmol/L (3.5-5.1)
--- NOTE | 2017-07-04 07:15 | NUR ---
PT SLEPT WELL DURING SHIFT. NO RESP DISTRESS. ON BIPAP LAST NIGHT. NO C/O PAIN. SAFETY MEASURES MAINTAINED. CALL LIGHT WITHIN REACH. WILL ENDORSE CONTINUITY OF CARE TO DAY SHIFT RN.
--- NOTE | 2017-07-04 07:16 | NUR ---
POTASSIUM 5.7. RESULT PRINTOUT HANDED TO DR OTTO. NO NEW ORDERS YET. INFORMED DAY SHIFT RN.
[2017-07-04 07:19] VITALS: Ht 172.7 cm; Wt 165.1 kg
--- NOTE | 2017-07-04 07:31 | NUR ---
SITTING BEDSIDE, REMOVED BIPAP WHEN RN ENTERED ROOM. SL TO RAC WNL. TELE 6. BLE WITH REDNESS. PREVIOUS RN REPORTS DR MCCRAY K+ 5.7, WILL FOLLOW UP ON ORDERS. NO DISTRESS NOTED.
--- NOTE | 2017-07-04 07:36 | NUR ---
PT ALERT, AWAKE, ORIENTED. DENIES PAIN, DISTRESS, OR SOB AT THIS TIME. LUNG SOUNDS CLEAR TO AUSCULTATION. NO RESPIRATORY DISTRESS NOTED. HRRR. PULSES STRONG THROUGHOUT ALL EXTREMITIES EQUALLY. BOWEL SOUNDS ACTIVE X 4, STATES LBM 07/04/17. DENIES DIFFICULTY URINATING. SITTING AT BEDSIDE. REINFORCED IS EDUCATION. BED IN LOWEST POSITION, CALL LIGHT WITHIN REACH, 2 RAILS UP. PT REMOVES BIPAP.
--- NOTE | 2017-07-04 08:33 | NUR ---
DR HOFF IN TO SEE PATIENT. PLAN FOR DC TODAY.
--- NOTE | 2017-07-04 08:50 | NUR ---
UP AMBULATING IN HALLWAY, STEADY ON FEET.
--- NOTE | 2017-07-04 09:44 | NUR ---
PT SEEN AMBULATING HALLS. DENIES DIZZINESS.
--- NOTE | 2017-07-04 09:49 | NUR ---
PAGED DR SORIA CONCERNING K+ 5.7.
--- NOTE | 2017-07-04 09:50 | NUR ---
SPOKE WITH DR SORIA CONCERNING K+ 5.7.
[2017-07-04 10:29] VITALS: BP 145/63
--- NOTE | 2017-07-04 10:30 | NUR ---
ASSISTED WITH SHOWER SET UP, SHOWERING.
--- NOTE | 2017-07-04 10:56 | NUR ---
PATIENT SEEN AMBULATING KENNEDY
--- NOTE | 2017-07-04 10:57 | NUR ---
UP AMBULATING IN HALLWAY.
--- NOTE | 2017-07-04 11:40 | NUR ---
REDRAW OF K+ INCREASED. PAGED DR SORIA TO CLARIFY INSULIN ORDER.
--- NOTE | 2017-07-04 11:45 | NUR ---
REPAGED DR SORIA.
--- NOTE | 2017-07-04 11:50 | NUR ---
REPAGED DR SORIA.
--- NOTE | 2017-07-04 11:53 | NUR ---
SPOKE WITH DR SORIA, REVIEWED ORDERS FOR D50 AND REGULAR INSULIN.
--- NOTE | 2017-07-04 12:04 | NUR ---
SPOKE WITH PHARMACIST, OKAY TO GIVE REGULAR INSULIN IV WITH AMP OF D50.
--- NOTE | 2017-07-04 12:57 | NUR ---
IV TO RAC LEAKING. CALCIUM WAS STOPPED. NEW IV IN LFA 24 GAUGE, INSULIN AND AMP D50 GIVEN, CALCIUM RESTARTED IN LFA. SITTING BEDSIDE EATING LUNCH. RECEIVED CALL FROM DR JARVIS, GIVE KAYEXELATE AND LACTULOSE, WHEN HAS LINDA, RN TO CALL DR SORIA.
[2017-07-04 13:49] VITALS: BP 161/78
--- NOTE | 2017-07-04 14:09 | NUR ---
PT SEEN AMBULATING HALLS.
--- NOTE | 2017-07-04 14:40 | NUR ---
REPORTS BM. DR SORIA ON FLOOR AND AWARE.
--- NOTE | 2017-07-04 16:13 | NUR ---
PT SITTING AT BEDSIDE, IN NO APPARENT DISTRESS. FAMILY AT BEDSIDE.
[2017-07-04 16:21] LABS: CALCIUM 9.3 mg/dL (8.5-10.1); CARBON DIOXIDE 27.1 mmol/L (21-32); CREATININE SERUM 1.4 mg/dL (0.7-1.3)
[2017-07-04 16:24] LABS: POTASSIUM SERUM 5.6 mmol/L (3.5-5.1)
--- NOTE | 2017-07-04 16:44 | NUR ---
RECEIVED A CALL FROM LAB WITH K-5.6, AND IN THE UNIT AND MADE BOTH OF THEM AWARE OF RESULT. CIARA BOWIE ASSIGNED TO THIS PT MADE AWARE OF ABOVE.
[2017-07-04 17:18] VITALS: BP 157/70
--- NOTE | 2017-07-04 17:59 | NUR ---
SPOKE WITH ONEAL LI TO [facility].
--- NOTE | 2017-07-04 18:02 | NUR ---
CONTINUES TO WALK [facility].
--- NOTE | 2017-07-04 19:12 | NUR ---
REVIEWED DISCHARGE INFORMATION WITH PATIENT, STATES WOULD LIKE TO STAY ANOTHER HOUR DUE TO LOOSE STOOLS FROM K-EXYLATE. IV STILL INTACT, STILL ON TELE. WILL REPORT TO NIGHT NURSE.
--- NOTE | 2017-07-04 19:30 | NUR ---
RECEIVED PT SITTING UPRIGHT ON SIDE OF BED WITH SON AT BEDSIDE. DOES NOT APPEAR TO BE IN ANY ACUTE DISTRESS AT THIS TIME. PT STATED HE WILL BE READY TO GO HOME SOON. PT STATES HE HAD A LOOSE BM A FEW MINUTES AGO DUE TO KAYEX. DENIES SOB OR DYSPNEA. BREATHING EVEN AND UNLABORED. IV FLUIDS INFUSING PER DOCTOR'S ORDERS. IV SITE IS DRY, PATENT, AND INTACT. CALL LIGHT WITHIN REACH. WILL CONTINUE TO MONITOR
--- NOTE | 2017-07-04 20:31 | NUR ---
PT SELF AMBULATORY WHILE EXITING HOSPITAL. ACCOMPANIED BY SON AND MYSELF. PT IN NO SIGNS OF ACUTE DISTRESS AND STABLE. TELE MONITOR REMOVED. IV REMOVED.
== END 2017-07-04 20:31 | disposition home or self-care (01) | DRG 133 ==
LOC: ED 19:19 → DU 20:26
PROVIDERS: Student in an Organized Health Care Education/Training Program; ADMIT Family Medicine
PROC: 5A09457 Assistance with Respiratory Ventilation, 24-96 Consecutive Hours, Continuous Positive Airway Pressure (ICD-10-PCS; principal; 2017-06-30)
DX: J96.21 Acute and chronic respiratory failure with hypoxia (principal); N17.0 Acute kidney failure with tubular necrosis; E43 Unspecified severe protein-calorie malnutrition; I50.43 Acute on chronic combined systolic (congestive) and diastolic (congestive) heart failure; D68.69 Other thrombophilia; E11.51 Type 2 diabetes mellitus with diabetic peripheral angiopathy without gangrene; E11.65 Type 2 diabetes mellitus with hyperglycemia; E66.2 Morbid (severe) obesity with alveolar hypoventilation; J44.1 Chronic obstructive pulmonary disease with (acute) exacerbation; Z68.43 Body mass index [BMI] 50.0-59.9, adult; I16.0 Hypertensive urgency; F15.10 Other stimulant abuse, uncomplicated; R80.9 Proteinuria, unspecified; F32.9 Major depressive disorder, single episode, unspecified; E83.42 Hypomagnesemia; R31.9 Hematuria, unspecified; D63.8 Anemia in other chronic diseases classified elsewhere; E78.5 Hyperlipidemia, unspecified; F17.210 Nicotine dependence, cigarettes, uncomplicated; Z53.29 Procedure and treatment not carried out because of patient's decision for other reasons; Z59.0 Homelessness; Z79.84 Long term (current) use of oral hypoglycemic drugs; Z83.3 Family history of diabetes mellitus; Z82.49 Family history of ischemic heart disease and other diseases of the circulatory system; Z79.899 Other long term (current) drug therapy; Z91.14 Patient's other noncompliance with medication regimen
CPT/HCPCS: 82962; 83880; 84439; J0610; J1815; J1817; J1940; J2920; J2930; J3475; J3490; J7030; J7620; Q0092

== ENCOUNTER 2017-10-07 23:54 | Emergency (ER) | payer OTHER ==
[~2017-10-07] VITALS: Ht 172.7 cm; Wt 168.3 kg
[2017-10-08] VITALS: Ht 172.7 cm; Wt 168.3 kg
[2017-10-08 01:11] LABS: CALCIUM 8.6 mg/dL (8.5-10.1); CARBON DIOXIDE 31.8 mmol/L (21-32); CHLORIDE SERUM 104 mmol/L (98-107); GFR1 > 60 mL/min; GLUCOSE SERUM 274 mg/dL (74-106); POTASSIUM SERUM 4.1 mmol/L (3.5-5.1); SODIUM SERUM 140 mmol/L (136-145)
[2017-10-08 01:25] LABS: BASOPHIL % 0.3 % (0-2); PLATELET COUNT 298 x10^3mcL (130-400)
[2017-10-08 01:28] LABS: ALBUMIN 1.9 g/dL (3.4-5.0); ALKALINE PHOSPHATASE 146 U/L (46-116); ALT/SGPT 13 U/L (16-63); AST/SGOT 10 U/L (15-37); BILIRUBIN TOTAL 0.15 mg/dL (0.20-1.00); LIPASE 162 IU/L (73-393); TOTAL PROTEIN, SERUM 6.4 g/dL (6.4-8.2)
[2017-10-08 03:56] VITALS: BP 185/89
[2017-10-08] MEDS ORDERED: LASIX20 MG PO (12:10)
[2017-10-08] MEDS ORDERED: PREDNISONE20 MG PO (12:10)
[2017-10-08] MEDS ORDERED: GLU850 PO (12:38)
== END 2017-10-08 03:56 | disposition home or self-care (01) ==
LOC: ED 23:54
PROVIDERS: Emergency Medicine
DX: J45.909 Unspecified asthma, uncomplicated (principal); I50.9 Heart failure, unspecified; I10 Essential (primary) hypertension; E11.9 Type 2 diabetes mellitus without complications
CPT/HCPCS: 36415; 83880; J7512; J7613; J7644

== ENCOUNTER 2017-10-08 10:10 | Inpatient (IN) | payer OTHER ==
[~2017-10-08] VITALS: Ht 172.7 cm; Wt 167.5 kg
[2017-10-08 10:17] VITALS: Ht 172.7 cm; Wt 167.5 kg
[2017-10-08 11:12] LABS: BASOPHIL % 0.1 % (0-2); PLATELET COUNT 286 x10^3mcL (130-400); RED CELL DISTRIBUTION WIDTH 13.8 % (11.5-14.5)
[2017-10-08 11:24] LABS: BILIRUBIN TOTAL 0.1 mg/dL (0.20-1.00); CALCIUM 8.3 mg/dL (8.5-10.1); CARBON DIOXIDE 24.6 mmol/L (21-32); CREATININE SERUM 1.4 mg/dL (0.7-1.3); POTASSIUM SERUM 4.1 mmol/L (3.5-5.1); TOTAL PROTEIN, SERUM 6.5 g/dL (6.4-8.2)
[2017-10-08] MEDS ORDERED: LASIX20 MG PO (12:10)
[2017-10-08] MEDS ORDERED: PREDNISONE20 MG PO (12:10)
[2017-10-08] MEDS ORDERED: GLU850 PO (12:38)
[2017-10-08 13:48] LABS: T3 TOTAL 0.88 ng/mL
[2017-10-08 13:54] LABS: MAGNESIUM 1.7 mg/dL (1.8-2.4); PHOSPHOROUS 3.4 mg/dL (2.5-4.9)
[2017-10-08 13:55] LABS: CHOLESTEROL/HDL RATIO 4.5
[2017-10-08 13:57] VITALS: BP 177/86
[2017-10-08 14:04] LABS: FREE T4 0.69 ng/dL (0.76-1.46)
[2017-10-08 14:14] LABS: FREE THYROXINE INDEX 1.3 ug/dL (1.4-4.5); T4(THYROXINE) 3.5 ug/dL (4.7-13.3)
[2017-10-08 16:40] VITALS: BP 177/86
[2017-10-08 17:20] LABS: UA SPECIFIC GRAVITY 1.015 (1.005-1.035); microscopic required? YES; urine erythrocyte 2+ (NEGATIVE)
[2017-10-08 17:59] VITALS: BP 148/74
[2017-10-08 18:15] VITALS: BP 152/76
[2017-10-08 18:39] LABS: AMPHETAMINE QUAL UR NONE DETECTED (NEG <=1000)
[2017-10-08 21:02] VITALS: BP 141/65
[2017-10-09 05:08] VITALS: BP 134/63
[2017-10-09 07:13] LABS: BASOPHIL % 0.3 % (0-2); PLATELET COUNT 290 x10^3mcL (130-400)
[2017-10-09 07:33] LABS: CALCIUM 8.2 mg/dL (8.5-10.1); CARBON DIOXIDE 30.6 mmol/L (21-32); CHLORIDE SERUM 102 mmol/L (98-107); CREATININE SERUM 1.1 mg/dL (0.7-1.3); GFR1 > 60 mL/min; GLUCOSE SERUM 163 mg/dL (74-106); MAGNESIUM 1.9 mg/dL (1.8-2.4); PHOSPHOROUS 3.7 mg/dL (2.5-4.9); POTASSIUM SERUM 3.7 mmol/L (3.5-5.1); SODIUM SERUM 140 mmol/L (136-145)
[2017-10-09 12:06] VITALS: BP 171/93
[2017-10-09 16:50] VITALS: BP 165/82
[2017-10-09 21:01] VITALS: BP 199/89
[2017-10-09 21:49] VITALS: BP 149/79
[2017-10-09 22:08] VITALS: BP 199/89
[2017-10-10 04:50] VITALS: BP 153/70
[2017-10-10 08:00] LABS: BASOPHIL % 0.2 % (0-2); PLATELET COUNT 237 x10^3mcL (130-400); RED CELL DISTRIBUTION WIDTH 13.6 % (11.5-14.5)
[2017-10-10 08:10] LABS: CALCIUM 8.4 mg/dL (8.5-10.1); CARBON DIOXIDE 29.8 mmol/L (21-32); CHLORIDE SERUM 101 mmol/L (98-107); CREATININE SERUM 1.1 mg/dL (0.7-1.3); GFR1 > 60 mL/min; GLUCOSE SERUM 159 mg/dL (74-106); PHOSPHOROUS 3.4 mg/dL (2.5-4.9); POTASSIUM SERUM 4.3 mmol/L (3.5-5.1); SODIUM SERUM 136 mmol/L (136-145)
[2017-10-10 13:03] VITALS: BP 138/71
[2017-10-10 17:05] VITALS: BP 101/46
[2017-10-10 20:13] VITALS: BP 143/66
[2017-10-11 05:02] VITALS: BP 145/84
[2017-10-11 09:09] VITALS: BP 170/83
[2017-10-11 12:16] VITALS: BP 116/65
[2017-10-11 13:16] LABS: BASOPHIL % 0.5 % (0-2); PLATELET COUNT 245 x10^3mcL (130-400)
[2017-10-11 13:28] LABS: CALCIUM 8.3 mg/dL (8.5-10.1); CARBON DIOXIDE 28.7 mmol/L (21-32); CHLORIDE SERUM 104 mmol/L (98-107); CREATININE SERUM 1.1 mg/dL (0.7-1.3); GFR1 > 60 mL/min; GLUCOSE SERUM 172 mg/dL (74-106); MAGNESIUM 1.9 mg/dL (1.8-2.4); PHOSPHOROUS 3.7 mg/dL (2.5-4.9); POTASSIUM SERUM 4.5 mmol/L (3.5-5.1); SODIUM SERUM 137 mmol/L (136-145)
[2017-10-11 16:37] VITALS: BP 151/78
[2017-10-11 21:55] VITALS: BP 153/67
[2017-10-12 05:55] VITALS: BP 132/63
[2017-10-12 07:49] LABS: BASOPHIL % 0.3 % (0-2); PLATELET COUNT 242 x10^3mcL (130-400); RED CELL DISTRIBUTION WIDTH 13.9 % (11.5-14.5)
[2017-10-12 08:00] LABS: CALCIUM 8.3 mg/dL (8.5-10.1); CARBON DIOXIDE 30.2 mmol/L (21-32); CHLORIDE SERUM 102 mmol/L (98-107); GFR1 > 60 mL/min; GLUCOSE SERUM 200 mg/dL (74-106); PHOSPHOROUS 4.2 mg/dL (2.5-4.9); POTASSIUM SERUM 4.5 mmol/L (3.5-5.1); SODIUM SERUM 139 mmol/L (136-145)
[2017-10-12 09:16] VITALS: BP 153/71
[2017-10-12 13:54] VITALS: BP 138/83
[2017-10-12 17:00] VITALS: BP 144/75
[2017-10-12 21:01] VITALS: BP 132/66
[2017-10-13 05:44] VITALS: BP 129/54
[2017-10-13 10:37] VITALS: BP 138/72
[2017-10-13] MEDS ORDERED: LEVAQUIN750 MG PO (10:39)
[2017-10-13] MEDS ORDERED: LAC PO (10:39)
[2017-10-13] MEDS ORDERED: CLINDAMYCIN HC300 MG PO (10:40)
[2017-10-13] MEDS ORDERED: CLOPIDOGREL75 M1 PO (10:42)
[2017-10-13] MEDS ORDERED: METOPROLOL TART25 M1 PO (10:44)
[2017-10-13] MEDS ORDERED: ZES10 PO (10:44)
[2017-10-13 12:44] VITALS: BP 138/76
== END 2017-10-13 13:25 | disposition home or self-care (01) | DRG 243 ==
LOC: ED 10:10 → DU 11:34
PROVIDERS: Emergency Medicine; Family Medicine; Family Medicine Sports Medicine
DX: K21.9 Gastro-esophageal reflux disease without esophagitis (principal); N17.0 Acute kidney failure with tubular necrosis; J69.0 Pneumonitis due to inhalation of food and vomit; E43 Unspecified severe protein-calorie malnutrition; I50.9 Heart failure, unspecified; I11.0 Hypertensive heart disease with heart failure; Z68.43 Body mass index [BMI] 50.0-59.9, adult; I24.8 Other forms of acute ischemic heart disease; E11.51 Type 2 diabetes mellitus with diabetic peripheral angiopathy without gangrene; J45.909 Unspecified asthma, uncomplicated; F32.9 Major depressive disorder, single episode, unspecified; E11.65 Type 2 diabetes mellitus with hyperglycemia; I16.0 Hypertensive urgency; E78.5 Hyperlipidemia, unspecified; E66.01 Morbid (severe) obesity due to excess calories; J44.9 Chronic obstructive pulmonary disease, unspecified; Z79.899 Other long term (current) drug therapy; Z79.82 Long term (current) use of aspirin; Z83.3 Family history of diabetes mellitus; Z82.49 Family history of ischemic heart disease and other diseases of the circulatory system; Z87.891 Personal history of nicotine dependence; Z79.84 Long term (current) use of oral hypoglycemic drugs; Z59.0 Homelessness; I42.2 Other hypertrophic cardiomyopathy; E87.1 Hypo-osmolality and hyponatremia
CPT/HCPCS: 82962; 83880; 84439; J0132; J0360; J1642; J1644; J1815; J1885; J1940; J1956; J2543; J3490; J7030; J7620; Q0092

== ENCOUNTER 2017-10-29 13:06 | Inpatient (IN) | payer OTHER ==
[~2017-10-29] VITALS: Ht 172.7 cm; Wt 174.9 kg
[~2017-10-29 13:06] MED LIST changes: +CLINDAMYCIN HC300 MG PO; +CLOPIDOGREL75 M1 PO; +GLU850 PO; +LASIX20 MG PO; +PREDNISONE20 MG PO; +ZES10 PO
[2017-10-29 14:13] LABS: BASOPHIL % 0.3 % (0-2); CALCIUM 8.5 mg/dL (8.5-10.1); CARBON DIOXIDE 29.7 mmol/L (21-32); CHLORIDE SERUM 104 mmol/L (98-107); GFR1 > 60 mL/min; GLUCOSE SERUM 188 mg/dL (74-106); PLATELET COUNT 350 x10^3mcL (130-400); POTASSIUM SERUM 4.1 mmol/L (3.5-5.1); RED CELL DISTRIBUTION WIDTH 13.6 % (11.5-14.5); SODIUM SERUM 138 mmol/L (136-145)
[2017-10-29 14:21] LABS: ALBUMIN 1.8 g/dL (3.4-5.0); ALKALINE PHOSPHATASE 123 U/L (46-116); ALT/SGPT 16 U/L (16-63); AST/SGOT 14 U/L (15-37); BILIRUBIN TOTAL 0.1 mg/dL (0.20-1.00); TOTAL PROTEIN, SERUM 6.3 g/dL (6.4-8.2)
[2017-10-29] MEDS ORDERED: GLU500 PO (16:00)
[2017-10-29] MEDS ORDERED: SINGULAIR10 MG PO (16:03)
[2017-10-29] MEDS ORDERED: GLU5XL PO (16:04)
[2017-10-29 16:48] LABS: CHOLESTEROL/HDL RATIO 4.7; MAGNESIUM 1.8 mg/dL (1.8-2.4); PHOSPHOROUS 3.8 mg/dL (2.5-4.9)
[2017-10-29 16:52] VITALS: BP 134/60
[2017-10-29 16:58] LABS: FREE T4 0.79 ng/dL (0.76-1.46)
[2017-10-29 17:04] VITALS: BP 134/60
[2017-10-29 17:04] LABS: FREE THYROXINE INDEX 1.6 ug/dL (1.4-4.5); T4(THYROXINE) 4.1 ug/dL (4.7-13.3)
[2017-10-29 17:25] LABS: T3 TOTAL 0.91 ng/mL
[2017-10-29] MEDS ORDERED: METOPROLOL TART25 M1 PO (17:33)
[2017-10-29] MEDS ORDERED: ZESTRIL20 MG PO (17:33)
[2017-10-29 18:09] VITALS: BP 134/60
[2017-10-29 21:01] VITALS: BP 140/62
[2017-10-30 05:49] VITALS: BP 160/89
[2017-10-30 06:07] LABS: BASOPHIL % 0.5 % (0-2); PLATELET COUNT 330 x10^3mcL (130-400); RED CELL DISTRIBUTION WIDTH 13.8 % (11.5-14.5)
[2017-10-30 06:33] LABS: CALCIUM 8.8 mg/dL (8.5-10.1); CARBON DIOXIDE 31.9 mmol/L (21-32); CHLORIDE SERUM 104 mmol/L (98-107); CREATININE SERUM 1.1 mg/dL (0.7-1.3); GFR1 > 60 mL/min; GLUCOSE SERUM 179 mg/dL (74-106); MAGNESIUM 1.8 mg/dL (1.8-2.4); POTASSIUM SERUM 4.6 mmol/L (3.5-5.1); SODIUM SERUM 140 mmol/L (136-145)
[2017-10-30 08:42] LABS: microscopic required? YES; urine erythrocyte TRACE (NEGATIVE)
[2017-10-30 08:59] LABS: AMPHETAMINE QUAL UR NONE DETECTED (NEG <=1000)
[2017-10-30 10:20] VITALS: BP 104/59
[2017-10-30 13:50] VITALS: BP 158/74
[2017-10-30 17:23] VITALS: BP 146/70
[2017-10-30 21:47] VITALS: BP 135/46
[2017-10-31] VITALS (11 sets, daily range): BP systolic 132–179; BP diastolic 54–93; Ht 172.7 cm; Wt 174.9 kg
[2017-10-31 06:37] LABS: BASOPHIL % 0.3 % (0-2); PLATELET COUNT 374 x10^3mcL (130-400); RED CELL DISTRIBUTION WIDTH 14.3 % (11.5-14.5)
[2017-10-31 07:08] LABS: CALCIUM 8.8 mg/dL (8.5-10.1); CARBON DIOXIDE 30.9 mmol/L (21-32); CHLORIDE SERUM 102 mmol/L (98-107); GFR1 > 60 mL/min; GLUCOSE SERUM 112 mg/dL (74-106); PHOSPHOROUS 4.4 mg/dL (2.5-4.9); POTASSIUM SERUM 4.2 mmol/L (3.5-5.1); SODIUM SERUM 139 mmol/L (136-145)
[2017-10-31 07:16] LABS: IRON 53 ug/dL (65-170)
[2017-10-31 07:24] LABS: TOTAL IRON BINDING CAPACITY 188 ug/dL (250-450)
[2017-10-31 08:26] LABS: RED BLOOD CELLS 4.82 M/mm3 (4.52-5.90)
[2017-10-31 18:05] LABS: APPEARANCE FLUID HAZY; SOURCE FLUID THORACENTESIS
[2017-10-31 18:06] LABS: COLOR FLUID PALE YELLOW; LYMPHOCYTE FLUID 62 %; RBC FLUID 1910 /cumm; WBC FLUID 110 /cumm
[2017-10-31 18:07] LABS: MONOCYTE FLUID 14 %
[2017-11-01 05:13] VITALS: BP 143/89
[2017-11-01 06:25] LABS: BASOPHIL % 0.3 % (0-2); PLATELET COUNT 335 x10^3mcL (130-400); RED CELL DISTRIBUTION WIDTH 14.4 % (11.5-14.5)
[2017-11-01 06:28] LABS: CARBON DIOXIDE 33.7 mmol/L (21-32); CHLORIDE SERUM 103 mmol/L (98-107); GFR1 > 60 mL/min; GLUCOSE SERUM 105 mg/dL (74-106); POTASSIUM SERUM 4.3 mmol/L (3.5-5.1); SODIUM SERUM 139 mmol/L (136-145)
[2017-11-01 08:00] VITALS: BP 120/73
[2017-11-01] MEDS ORDERED: ZITHROMAX TRI-500 MG PO (08:36)
[2017-11-01] MEDS ORDERED: LASIX20 MG PO (08:37)
[2017-11-01] MEDS ORDERED: ZITHROMAX Z-PA250 MG PO (08:51)
[2017-11-01 09:41] VITALS: BP 120/73
[2017-11-01 12:48] VITALS: BP 115/68
== END 2017-11-01 14:03 | disposition home or self-care (01) | DRG 194 ==
LOC: ED 13:06 → DU 15:52
PROVIDERS: Emergency Medicine; Family Medicine
PROC: 0W9B3ZZ Drainage of Left Pleural Cavity, Percutaneous Approach (ICD-10-PCS; principal; 2017-10-31)
DX: I11.0 Hypertensive heart disease with heart failure (principal); J96.21 Acute and chronic respiratory failure with hypoxia; E43 Unspecified severe protein-calorie malnutrition; I42.0 Dilated cardiomyopathy; J90 Pleural effusion, not elsewhere classified; I50.9 Heart failure, unspecified; Z68.43 Body mass index [BMI] 50.0-59.9, adult; J45.909 Unspecified asthma, uncomplicated; I42.2 Other hypertrophic cardiomyopathy; E11.51 Type 2 diabetes mellitus with diabetic peripheral angiopathy without gangrene; E11.65 Type 2 diabetes mellitus with hyperglycemia; F12.90 Cannabis use, unspecified, uncomplicated; E78.5 Hyperlipidemia, unspecified; I87.8 Other specified disorders of veins; E02 Subclinical iodine-deficiency hypothyroidism; J44.1 Chronic obstructive pulmonary disease with (acute) exacerbation; E83.39 Other disorders of phosphorus metabolism; E66.01 Morbid (severe) obesity due to excess calories; F32.9 Major depressive disorder, single episode, unspecified; I25.10 Atherosclerotic heart disease of native coronary artery without angina pectoris; Z82.49 Family history of ischemic heart disease and other diseases of the circulatory system; Z83.3 Family history of diabetes mellitus; Z87.891 Personal history of nicotine dependence; Z91.14 Patient's other noncompliance with medication regimen
CPT/HCPCS: 32555; 36600; 82962; 83880; 84439; 94150; J0696; J1940; J2001; J3490; J7030; J7050; J7512; J7620; Q0092

== ENCOUNTER 2017-11-17 15:37 | Inpatient (IN) | payer OTHER ==
[~2017-11-17] VITALS: Ht 172.7 cm; Wt 182.8 kg
[~2017-11-17 15:37] MED LIST changes: +GLU5XL PO; +SINGULAIR10 MG PO; +ZESTRIL20 MG PO; +ZITHROMAX TRI-500 MG PO; +ZITHROMAX Z-PA250 MG PO
[2017-11-17 15:39] VITALS: Ht 172.7 cm; Wt 182.8 kg
[2017-11-17 16:27] LABS: BASOPHIL % 0.5 % (0-2); PLATELET COUNT 295 x10^3mcL (130-400)
[2017-11-17 16:31] LABS: RED CELL DISTRIBUTION WIDTH 15.6 % (11.5-14.5)
[2017-11-17 16:37] LABS: CALCIUM 8.5 mg/dL (8.5-10.1); CARBON DIOXIDE 26.6 mmol/L (21-32); CHLORIDE SERUM 111 mmol/L (98-107); CREATININE SERUM 1.3 mg/dL (0.7-1.3); GFR1 > 60 mL/min; GLUCOSE SERUM 176 mg/dL (74-106); POTASSIUM SERUM 4.6 mmol/L (3.5-5.1); SODIUM SERUM 144 mmol/L (136-145)
[2017-11-17 16:42] LABS: ALKALINE PHOSPHATASE 142 U/L (46-116); ALT/SGPT 18 U/L (16-63); AST/SGOT 14 U/L (15-37); BILIRUBIN TOTAL 0.11 mg/dL (0.20-1.00); TOTAL PROTEIN, SERUM 6.5 g/dL (6.4-8.2)
[2017-11-17 19:14] LABS: MAGNESIUM 2.2 mg/dL (1.8-2.4); PHOSPHOROUS 3.5 mg/dL (2.5-4.9)
[2017-11-17 19:15] LABS: CHOLESTEROL/HDL RATIO 4.5
[2017-11-17 19:23] LABS: T3 TOTAL 0.61 ng/mL
[2017-11-17 19:29] LABS: FREE T4 0.67 ng/dL (0.76-1.46)
[2017-11-17 19:30] LABS: FREE THYROXINE INDEX 1.2 ug/dL (1.4-4.5); T4(THYROXINE) 3.1 ug/dL (4.7-13.3)
[2017-11-17 19:32] VITALS: BP 143/64
[2017-11-17 20:56] VITALS: BP 143/64
[2017-11-18] VITALS (7 sets, daily range): BP systolic 127–171; BP diastolic 64–91
[2017-11-18 02:52] LABS: BASOPHIL % 0.9 % (0-2); PLATELET COUNT 270 x10^3mcL (130-400); RED CELL DISTRIBUTION WIDTH 14.1 % (11.5-14.5)
[2017-11-18 02:59] LABS: CALCIUM 8.4 mg/dL (8.5-10.1); CARBON DIOXIDE 27.6 mmol/L (21-32); CHLORIDE SERUM 110 mmol/L (98-107); CREATININE SERUM 1.2 mg/dL (0.7-1.3); GFR1 > 60 mL/min; GLUCOSE SERUM 236 mg/dL (74-106); SODIUM SERUM 143 mmol/L (136-145)
[2017-11-18] MEDS ORDERED: LIPITOR80 MG PO (17:18)
[2017-11-18] MEDS ORDERED: ECO81 PO (17:19)
[2017-11-18] MEDS ORDERED: LISINOPRIL40 MG PO (17:39)
[2017-11-19 04:52] VITALS: BP 161/88; BP 173/89
[2017-11-19 07:41] LABS: CALCIUM 8.7 mg/dL (8.5-10.1); CHLORIDE SERUM 106 mmol/L (98-107); GFR1 > 60 mL/min; GLUCOSE SERUM 192 mg/dL (74-106); POTASSIUM SERUM 4.7 mmol/L (3.5-5.1); SODIUM SERUM 139 mmol/L (136-145)
[2017-11-19 07:49] LABS: BASOPHIL % 0.4 % (0-2); PLATELET COUNT 276 x10^3mcL (130-400)
[2017-11-19 07:53] LABS: RED CELL DISTRIBUTION WIDTH 15.1 % (11.5-14.5)
[2017-11-19 08:54] VITALS: BP 147/78
[2017-11-19 13:22] VITALS: BP 147/78
[2017-11-19 13:40] VITALS: BP 157/77
== END 2017-11-19 14:37 | disposition home health service (06) | DRG 194 ==
LOC: ED 15:37 → DU 18:18
PROVIDERS: Emergency Medicine; Family Medicine
DX: I11.0 Hypertensive heart disease with heart failure (principal); E43 Unspecified severe protein-calorie malnutrition; E11.65 Type 2 diabetes mellitus with hyperglycemia; J44.1 Chronic obstructive pulmonary disease with (acute) exacerbation; I25.10 Atherosclerotic heart disease of native coronary artery without angina pectoris; I50.43 Acute on chronic combined systolic (congestive) and diastolic (congestive) heart failure; I87.8 Other specified disorders of veins; E66.01 Morbid (severe) obesity due to excess calories; E78.5 Hyperlipidemia, unspecified; I42.2 Other hypertrophic cardiomyopathy; I70.90 Unspecified atherosclerosis; F32.9 Major depressive disorder, single episode, unspecified; I25.2 Old myocardial infarction; Z83.3 Family history of diabetes mellitus; Z82.49 Family history of ischemic heart disease and other diseases of the circulatory system; Z87.891 Personal history of nicotine dependence; Z68.44 Body mass index [BMI] 60.0-69.9, adult
CPT/HCPCS: 82962; 83880; 84439; J1940; J1956; J3490; J7030; J7620; Q0092

== ENCOUNTER 2017-11-30 15:11 | Emergency (ER) | payer OTHER ==
[~2017-11-30] VITALS: Ht 172.7 cm; Wt 186.0 kg
[~2017-11-30 15:11] MED LIST changes: +LIPITOR80 MG PO; +LISINOPRIL40 MG PO
[2017-11-30 15:13] VITALS: Ht 172.7 cm; Wt 186.0 kg
[2017-11-30 17:23] LABS: BASOPHIL % 0.6 % (0-2); PLATELET COUNT 354 x10^3mcL (130-400); RED CELL DISTRIBUTION WIDTH 15.7 % (11.5-14.5)
[2017-11-30 17:27] LABS: ALKALINE PHOSPHATASE 155 U/L (46-116); ALT/SGPT 21 U/L (16-63); AST/SGOT 14 U/L (15-37); BILIRUBIN TOTAL 0.2 mg/dL (0.20-1.00); CALCIUM 8.6 mg/dL (8.5-10.1); CARBON DIOXIDE 32.9 mmol/L (21-32); CHLORIDE SERUM 105 mmol/L (98-107); GFR1 > 60 mL/min; GLUCOSE SERUM 148 mg/dL (74-106); POTASSIUM SERUM 5.5 mmol/L (3.5-5.1); SODIUM SERUM 141 mmol/L (136-145); TOTAL PROTEIN, SERUM 6.6 g/dL (6.4-8.2)
[2017-11-30 17:31] LABS: ALBUMIN 2.2 g/dL (3.4-5.0)
[2017-11-30 20:24] VITALS: BP 133/86
== END 2017-11-30 20:15 | disposition home or self-care (01) ==
LOC: ED 15:11
PROVIDERS: Emergency Medicine
DX: I11.0 Hypertensive heart disease with heart failure (principal); E11.9 Type 2 diabetes mellitus without complications; J45.909 Unspecified asthma, uncomplicated
CPT/HCPCS: 36600; 83880; J1940; J3490

== ENCOUNTER 2017-12-02 16:53 | Emergency (ER) | payer OTHER ==
[~2017-12-02] VITALS: Ht 172.7 cm; Wt 166.5 kg
[2017-12-02 17:12] VITALS: Ht 172.7 cm; Wt 166.5 kg
[2017-12-02 19:18] LABS: ALBUMIN 2.3 g/dL (3.4-5.0); ALKALINE PHOSPHATASE 193 U/L (46-116); ALT/SGPT 19 U/L (16-63); AST/SGOT 15 U/L (15-37); BILIRUBIN TOTAL 0.2 mg/dL (0.20-1.00); CALCIUM 8.6 mg/dL (8.5-10.1); CARBON DIOXIDE 31.3 mmol/L (21-32); CHLORIDE SERUM 105 mmol/L (98-107); GFR1 > 60 mL/min; GLUCOSE SERUM 173 mg/dL (74-106); SODIUM SERUM 143 mmol/L (136-145)
[2017-12-02 19:19] LABS: POTASSIUM SERUM 5.6 mmol/L (3.5-5.1)
[2017-12-02 21:05] VITALS: BP 169/88
== END 2017-12-02 21:05 | disposition home or self-care (01) ==
LOC: ED 16:53
PROVIDERS: Emergency Medicine
DX: I11.0 Hypertensive heart disease with heart failure (principal); I50.9 Heart failure, unspecified; E11.8 Type 2 diabetes mellitus with unspecified complications; J45.909 Unspecified asthma, uncomplicated; E66.01 Morbid (severe) obesity due to excess calories; E87.5 Hyperkalemia
CPT/HCPCS: 83880; J3490

== ENCOUNTER 2017-12-23 18:45 | Inpatient (IN) | payer OTHER ==
[~2017-12-23] VITALS: Ht 172.7 cm; Wt 187.0 kg
[2017-12-23] MEDS ORDERED: PROS INH (19:57)
[2017-12-23] MEDS ORDERED: ALDACTONE25 MG PO (19:58)
[2017-12-23 20:36] LABS: BASOPHIL % 0.4 % (0-2); PLATELET COUNT 362 x10^3mcL (130-400)
[2017-12-23 20:38] LABS: RED CELL DISTRIBUTION WIDTH 15.4 % (11.5-14.5)
[2017-12-23 20:54] LABS: ALKALINE PHOSPHATASE 171 U/L (46-116); ALT/SGPT 15 U/L (16-63); AST/SGOT 21 U/L (15-37); CALCIUM 8.8 mg/dL (8.5-10.1); CARBON DIOXIDE 30.1 mmol/L (21-32); CHLORIDE SERUM 108 mmol/L (98-107); CREATININE SERUM 1.3 mg/dL (0.7-1.3); GFR1 > 60 mL/min; GLUCOSE SERUM 127 mg/dL (74-106); SODIUM SERUM 138 mmol/L (136-145); TOTAL PROTEIN, SERUM 6.7 g/dL (6.4-8.2)
[2017-12-23 20:57] LABS: POTASSIUM SERUM 6.2 mmol/L (3.5-5.1)
[2017-12-23 21:02] LABS: AMPHETAMINE QUAL UR NONE DETECTED (NEG <=1000)
[2017-12-23 22:46] LABS: T3 TOTAL 1.02 ng/mL
[2017-12-23 23:56] VITALS: BP 162/69
[2017-12-23 23:58] VITALS: Ht 172.7 cm; Wt 187.0 kg
[2017-12-24 01:10] LABS: FREE T4 0.71 ng/dL (0.76-1.46); FREE THYROXINE INDEX 1.4 ug/dL (1.4-4.5); T4(THYROXINE) 3.8 ug/dL (4.7-13.3)
[2017-12-24 01:36] LABS: CHLORIDE SERUM 108 mmol/L (98-107); POTASSIUM SERUM 5.8 mmol/L (3.5-5.1)
[2017-12-24 01:37] LABS: CARBON DIOXIDE 29.1 mmol/L (21-32); CREATININE SERUM 1.2 mg/dL (0.7-1.3); GFR1 > 60 mL/min; GLUCOSE SERUM 135 mg/dL (74-106)
[2017-12-24 01:38] LABS: CALCIUM 8.9 mg/dL (8.5-10.1); SODIUM SERUM 139 mmol/L (136-145)
[2017-12-24 02:01] LABS: MAGNESIUM 2.1 mg/dL (1.8-2.4); PHOSPHOROUS 4.3 mg/dL (2.5-4.9)
[2017-12-24 05:28] VITALS: BP 133/68
[2017-12-24 07:36] LABS: BASOPHIL % 0.5 % (0-2); PLATELET COUNT 365 x10^3mcL (130-400)
[2017-12-24 07:43] LABS: CARBON DIOXIDE 28.5 mmol/L (21-32); CHLORIDE SERUM 108 mmol/L (98-107); SODIUM SERUM 139 mmol/L (136-145)
[2017-12-24 07:44] LABS: GLUCOSE SERUM 146 mg/dL (74-106)
[2017-12-24 07:45] LABS: CALCIUM 9.1 mg/dL (8.5-10.1); CREATININE SERUM 1.2 mg/dL (0.7-1.3); GFR1 > 60 mL/min
[2017-12-24 07:48] LABS: POTASSIUM SERUM 5.7 mmol/L (3.5-5.1)
[2017-12-24 08:46] LABS: CHOLESTEROL/HDL RATIO 4.1
[2017-12-24 08:57] VITALS: BP 158/76
[2017-12-24 11:34] LABS: microscopic required? YES; urine erythrocyte 1+ (NEGATIVE)
[2017-12-24] MEDS ORDERED: FUROSEMIDE40 MG PO (13:49)
[2017-12-24 16:40] VITALS: BP 124/73; BP 166/63
[2017-12-24 19:51] VITALS: BP 147/55
[2017-12-25 06:14] VITALS: BP 102/60
[2017-12-25 06:40] LABS: CALCIUM 8.3 mg/dL (8.5-10.1); CARBON DIOXIDE 27.3 mmol/L (21-32); CHLORIDE SERUM 105 mmol/L (98-107); CREATININE SERUM 1.2 mg/dL (0.7-1.3); GFR1 > 60 mL/min; GLUCOSE SERUM 272 mg/dL (74-106); MAGNESIUM 2.1 mg/dL (1.8-2.4); PHOSPHOROUS 4.4 mg/dL (2.5-4.9); SODIUM SERUM 137 mmol/L (136-145)
[2017-12-25 06:42] LABS: POTASSIUM SERUM 5.6 mmol/L (3.5-5.1)
[2017-12-25 07:56] LABS: BASOPHIL % 0.1 % (0-2); PLATELET COUNT 362 x10^3mcL (130-400); RED CELL DISTRIBUTION WIDTH 15.7 % (11.5-14.5)
[2017-12-25 09:40] VITALS: BP 129/66
[2017-12-25 13:23] VITALS: BP 133/65
[2017-12-25 14:04] LABS: CALCIUM 8.5 mg/dL (8.5-10.1); CARBON DIOXIDE 23.7 mmol/L (21-32); CHLORIDE SERUM 104 mmol/L (98-107); CREATININE SERUM 1.3 mg/dL (0.7-1.3); GFR1 > 60 mL/min; GLUCOSE SERUM 407 mg/dL (74-106); POTASSIUM SERUM 5.5 mmol/L (3.5-5.1); SODIUM SERUM 136 mmol/L (136-145)
== END 2017-12-25 14:48 | disposition left against medical advice (07) | DRG 133 ==
LOC: ED 18:45 → DU 21:51 → MU 12-25 07:53
PROVIDERS: Emergency Medicine; Family Medicine
DX: J96.21 Acute and chronic respiratory failure with hypoxia (principal); N17.0 Acute kidney failure with tubular necrosis; E43 Unspecified severe protein-calorie malnutrition; I50.43 Acute on chronic combined systolic (congestive) and diastolic (congestive) heart failure; I11.0 Hypertensive heart disease with heart failure; I25.10 Atherosclerotic heart disease of native coronary artery without angina pectoris; E11.65 Type 2 diabetes mellitus with hyperglycemia; Z53.21 Procedure and treatment not carried out due to patient leaving prior to being seen by health care provider; I25.5 Ischemic cardiomyopathy; J44.1 Chronic obstructive pulmonary disease with (acute) exacerbation; E66.01 Morbid (severe) obesity due to excess calories; R31.9 Hematuria, unspecified; E87.5 Hyperkalemia; Z87.891 Personal history of nicotine dependence; Z79.82 Long term (current) use of aspirin; Z79.899 Other long term (current) drug therapy; Z83.3 Family history of diabetes mellitus; Z82.49 Family history of ischemic heart disease and other diseases of the circulatory system; Z56.0 Unemployment, unspecified; Z68.44 Body mass index [BMI] 60.0-69.9, adult; I25.2 Old myocardial infarction; Z95.5 Presence of coronary angioplasty implant and graft; Z91.14 Patient's other noncompliance with medication regimen
CPT/HCPCS: 82962; 83880; 84439; J1815; J1940; J1956; J2920; J3490; J7030; J7620

== ENCOUNTER 2018-02-17 17:14 | Emergency (ER) | payer OTHER ==
[~2018-02-17] VITALS: Ht 172.7 cm; Wt 176.9 kg
[~2018-02-17 17:14] MED LIST changes: +ALDACTONE25 MG PO; +FUROSEMIDE40 MG PO; +PROS INH
[2018-02-17 17:44] VITALS: BP 165/92; Ht 172.7 cm; Wt 176.9 kg
== END 2018-02-17 20:18 | disposition left against medical advice (07) ==
LOC: ED 17:14
DX: Z53.21 Procedure and treatment not carried out due to patient leaving prior to being seen by health care provider (principal)

== ENCOUNTER 2018-03-17 13:15 | Inpatient (IN) | payer OTHER ==
[~2018-03-17] VITALS: Ht 172.7 cm; Wt 175.5 kg
[2018-03-17 13:29] VITALS: Ht 172.7 cm; Wt 175.5 kg
[2018-03-17 19:40] LABS: BASOPHIL % 0.4 % (0-2); PLATELET COUNT 298 x10^3mcL (130-400)
[2018-03-17 19:43] LABS: RED CELL DISTRIBUTION WIDTH 14.6 % (11.5-14.5)
[2018-03-17 19:48] LABS: CALCIUM 8.6 mg/dL (8.5-10.1); CARBON DIOXIDE 31.3 mmol/L (21-32); CHLORIDE SERUM 103 mmol/L (98-107); CREATININE SERUM 1.2 mg/dL (0.7-1.3); GFR1 > 60 mL/min; GLUCOSE SERUM 270 mg/dL (74-106); POTASSIUM SERUM 4.4 mmol/L (3.5-5.1); SODIUM SERUM 136 mmol/L (136-145)
[2018-03-17 19:52] LABS: ALKALINE PHOSPHATASE 205 U/L (46-116); ALT/SGPT 19 U/L (16-63); AST/SGOT 12 U/L (15-37); BILIRUBIN TOTAL 0.18 mg/dL (0.20-1.00); CHOLESTEROL 137 mg/dL (<200); CHOLESTEROL/HDL RATIO 3.4; HDL CHOLESTEROL 40 mg/dL (40-60); LIPASE 171 IU/L (73-393); TOTAL PROTEIN, SERUM 6.8 g/dL (6.4-8.2); TRIGLYCERIDES 122 mg/dL (<150)
[2018-03-17 20:17] LABS: T3 TOTAL 0.78 ng/mL
[2018-03-17 20:26] LABS: FREE T4 0.75 ng/dL (0.76-1.46); FREE THYROXINE INDEX 1.9 ug/dL (1.4-4.5); T4(THYROXINE) 4.7 ug/dL (4.7-13.3)
[2018-03-17 21:35] LABS: MAGNESIUM 2.1 mg/dL (1.8-2.4)
[2018-03-17 23:20] VITALS: BP 152/83
[2018-03-18 02:33] LABS: microscopic required? YES; urine erythrocyte 1+ (NEGATIVE)
[2018-03-18 02:49] LABS: AMPHETAMINE QUAL UR NONE DETECTED (See below)
[2018-03-18 05:48] LABS: BASOPHIL % 0.3 % (0-2); PLATELET COUNT 292 x10^3mcL (130-400); RED CELL DISTRIBUTION WIDTH 14.3 % (11.5-14.5)
[2018-03-18 05:56] VITALS: BP 130/67
[2018-03-18 06:10] LABS: CALCIUM 7.9 mg/dL (8.5-10.1); CARBON DIOXIDE 28.2 mmol/L (21-32); CHLORIDE SERUM 104 mmol/L (98-107); CREATININE SERUM 1.1 mg/dL (0.7-1.3); GFR1 > 60 mL/min; GLUCOSE SERUM 285 mg/dL (74-106); POTASSIUM SERUM 4.6 mmol/L (3.5-5.1); SODIUM SERUM 138 mmol/L (136-145)
[2018-03-18 08:55] VITALS: BP 106/73
[2018-03-18 11:50] VITALS: BP 141/70
[2018-03-18 17:26] VITALS: BP 140/67
[2018-03-18 21:17] VITALS: BP 139/73
[2018-03-18 21:44] VITALS: BP 139/73
[2018-03-19 05:43] VITALS: BP 123/76
[2018-03-19 06:27] LABS: BASOPHIL % 0.1 % (0-2); PLATELET COUNT 294 x10^3mcL (130-400); RED CELL DISTRIBUTION WIDTH 14.3 % (11.5-14.5)
[2018-03-19 06:33] LABS: CALCIUM 8.7 mg/dL (8.5-10.1); CARBON DIOXIDE 31.9 mmol/L (21-32); CHLORIDE SERUM 103 mmol/L (98-107); CREATININE SERUM 1.1 mg/dL (0.7-1.3); GFR1 > 60 mL/min; GLUCOSE SERUM 201 mg/dL (74-106); POTASSIUM SERUM 4.4 mmol/L (3.5-5.1); SODIUM SERUM 140 mmol/L (136-145)
[2018-03-19 08:22] VITALS: BP 123/58
[2018-03-19 11:41] VITALS: BP 147/69
[2018-03-19 16:53] VITALS: BP 141/58
[2018-03-19 21:05] VITALS: BP 140/77
[2018-03-20 05:28] VITALS: BP 138/71
[2018-03-20 06:41] LABS: CALCIUM 8.8 mg/dL (8.5-10.1); CARBON DIOXIDE 31.1 mmol/L (21-32); CHLORIDE SERUM 104 mmol/L (98-107); CREATININE SERUM 1.1 mg/dL (0.7-1.3); GFR1 > 60 mL/min; GLUCOSE SERUM 186 mg/dL (74-106); POTASSIUM SERUM 4.4 mmol/L (3.5-5.1); SODIUM SERUM 141 mmol/L (136-145)
[2018-03-20 06:52] LABS: BASOPHIL % 0.2 % (0-2); PLATELET COUNT 293 x10^3mcL (130-400); RED CELL DISTRIBUTION WIDTH 14.3 % (11.5-14.5)
[2018-03-20 09:18] VITALS: BP 165/89
[2018-03-20 13:49] VITALS: BP 144/60
[2018-03-20 18:00] VITALS: BP 145/78
[2018-03-20 20:38] VITALS: BP 147/71
[2018-03-21 05:58] VITALS: BP 113/44
[2018-03-21 06:17] LABS: BASOPHIL % 0.2 % (0-2); PLATELET COUNT 315 x10^3mcL (130-400); RED CELL DISTRIBUTION WIDTH 14.3 % (11.5-14.5)
[2018-03-21 06:35] LABS: CALCIUM 9.1 mg/dL (8.5-10.1); CHLORIDE SERUM 102 mmol/L (98-107); CREATININE SERUM 1.2 mg/dL (0.7-1.3); GFR1 > 60 mL/min; GLUCOSE SERUM 181 mg/dL (74-106); POTASSIUM SERUM 4.2 mmol/L (3.5-5.1); SODIUM SERUM 139 mmol/L (136-145)
[2018-03-21 09:21] VITALS: BP 101/80
[2018-03-21 12:40] VITALS: BP 138/78
[2018-03-21 17:03] VITALS: BP 115/90
[2018-03-21 21:29] VITALS: BP 127/50
[2018-03-22 05:53] VITALS: BP 136/73
[2018-03-22 05:59] LABS: BASOPHIL % 0.2 % (0-2); PLATELET COUNT 306 x10^3mcL (130-400); RED CELL DISTRIBUTION WIDTH 13.9 % (11.5-14.5)
[2018-03-22 06:17] LABS: CALCIUM 8.7 mg/dL (8.5-10.1); CARBON DIOXIDE 32.1 mmol/L (21-32); CREATININE SERUM 1.4 mg/dL (0.7-1.3); POTASSIUM SERUM 4.4 mmol/L (3.5-5.1)
[2018-03-22 09:38] VITALS: BP 134/62
[2018-03-22 13:26] VITALS: BP 135/75
[2018-03-22 16:38] VITALS: BP 126/63
[2018-03-22 20:54] VITALS: BP 158/86
[2018-03-23 06:12] VITALS: BP 145/75
[2018-03-23 06:24] LABS: BASOPHIL % 0.5 % (0-2); PLATELET COUNT 307 x10^3mcL (130-400)
[2018-03-23 06:40] LABS: CARBON DIOXIDE 31.9 mmol/L (21-32); CHLORIDE SERUM 102 mmol/L (98-107); CREATININE SERUM 1.2 mg/dL (0.7-1.3); GFR1 > 60 mL/min; GLUCOSE SERUM 179 mg/dL (74-106); POTASSIUM SERUM 4.4 mmol/L (3.5-5.1); SODIUM SERUM 137 mmol/L (136-145)
[2018-03-23 08:45] VITALS: BP 130/62
[2018-03-23 10:45] VITALS: BP 130/62
== END 2018-03-23 12:58 | disposition home or self-care (01) | DRG 194 ==
LOC: ED 13:15 → DU 20:44
PROVIDERS: Internal Medicine; Specialist
DX: I11.0 Hypertensive heart disease with heart failure (principal); E11.51 Type 2 diabetes mellitus with diabetic peripheral angiopathy without gangrene; E66.01 Morbid (severe) obesity due to excess calories; I50.33 Acute on chronic diastolic (congestive) heart failure; I25.10 Atherosclerotic heart disease of native coronary artery without angina pectoris; J44.9 Chronic obstructive pulmonary disease, unspecified; Z68.43 Body mass index [BMI] 50.0-59.9, adult; E87.5 Hyperkalemia; I25.5 Ischemic cardiomyopathy; I25.2 Old myocardial infarction; F32.9 Major depressive disorder, single episode, unspecified; Z83.3 Family history of diabetes mellitus; Z82.49 Family history of ischemic heart disease and other diseases of the circulatory system
CPT/HCPCS: 82962; 83880; 84439; J1644; J1815; J1940; J3535; J7613; Q0092

== ENCOUNTER 2018-04-15 13:39 | Inpatient (IN) | payer OTHER ==
[~2018-04-15] VITALS: Ht 172.7 cm; Wt 158.8 kg
[2018-04-15 13:45] VITALS: Ht 172.7 cm; Wt 158.8 kg
[2018-04-15 15:23] LABS: BASOPHIL % 0.2 % (0-2); PLATELET COUNT 292 x10^3mcL (130-400); RED CELL DISTRIBUTION WIDTH 13.8 % (11.5-14.5)
[2018-04-15 15:41] LABS: ALKALINE PHOSPHATASE 161 U/L (46-116); ALT/SGPT 26 U/L (16-63); AST/SGOT 18 U/L (15-37); BILIRUBIN TOTAL 0.2 mg/dL (0.20-1.00); CARBON DIOXIDE 29.6 mmol/L (21-32); CHLORIDE SERUM 99 mmol/L (98-107); CHOLESTEROL 137 mg/dL (<200); CREATININE SERUM 1.3 mg/dL (0.7-1.3); GFR1 > 60 mL/min; GLUCOSE SERUM 215 mg/dL (74-106); LIPASE 278 IU/L (73-393); POTASSIUM SERUM 4.9 mmol/L (3.5-5.1); SODIUM SERUM 134 mmol/L (136-145); TOTAL PROTEIN, SERUM 7.2 g/dL (6.4-8.2); TRIGLYCERIDES 184 mg/dL (<150)
[2018-04-15 15:49] LABS: T3 TOTAL 0.82 ng/mL
[2018-04-15 15:51] LABS: CALCIUM 8.5 mg/dL (8.5-10.1)
[2018-04-15 15:52] LABS: ALBUMIN 2.3 g/dL (3.4-5.0); HDL CHOLESTEROL 34 mg/dL (40-60)
[2018-04-15 15:57] LABS: UA SPECIFIC GRAVITY 1.025 (1.005-1.035); microscopic required? YES; urine erythrocyte TRACE (NEGATIVE)
[2018-04-15 16:26] LABS: FREE T4 0.8 ng/dL (0.76-1.46)
[2018-04-15 16:27] LABS: FREE THYROXINE INDEX 1.6 ug/dL (1.4-4.5); T4(THYROXINE) 4.1 ug/dL (4.7-13.3)
[2018-04-15 17:23] VITALS: BP 178/98
[2018-04-15 17:44] VITALS: BP 130/81
[2018-04-15 17:50] VITALS: BP 129/61
[2018-04-15 21:08] VITALS: BP 124/52
[2018-04-16 05:46] VITALS: BP 149/68
[2018-04-16 06:14] LABS: BASOPHIL % 0.3 % (0-2); PLATELET COUNT 302 x10^3mcL (130-400); RED CELL DISTRIBUTION WIDTH 13.7 % (11.5-14.5)
[2018-04-16 06:16] LABS: CALCIUM 8.9 mg/dL (8.5-10.1); CARBON DIOXIDE 29.8 mmol/L (21-32); CHLORIDE SERUM 109 mmol/L (98-107); CREATININE SERUM 1.2 mg/dL (0.7-1.3); GFR1 > 60 mL/min; GLUCOSE SERUM 183 mg/dL (74-106); POTASSIUM SERUM 5.5 mmol/L (3.5-5.1); SODIUM SERUM 143 mmol/L (136-145)
[2018-04-16 08:39] VITALS: BP 131/56
[2018-04-16 13:13] VITALS: BP 115/41
[2018-04-16 16:45] VITALS: BP 149/68
[2018-04-16 20:00] VITALS: BP 148/77
[2018-04-17 05:49] VITALS: BP 147/102
[2018-04-17 06:56] LABS: BASOPHIL % 0.4 % (0-2); PLATELET COUNT 315 x10^3mcL (130-400); RED CELL DISTRIBUTION WIDTH 13.4 % (11.5-14.5)
[2018-04-17 07:29] LABS: CARBON DIOXIDE 30.4 mmol/L (21-32); CHLORIDE SERUM 108 mmol/L (98-107); GFR1 > 60 mL/min; GLUCOSE SERUM 196 mg/dL (74-106); SODIUM SERUM 146 mmol/L (136-145)
[2018-04-17 09:21] VITALS: BP 142/69
[2018-04-17 13:10] VITALS: BP 132/70
[2018-04-17 17:14] VITALS: BP 123/81
[2018-04-17 20:54] VITALS: BP 147/77
[2018-04-18 05:26] VITALS: BP 129/51
[2018-04-18 07:32] LABS: BASOPHIL % 0.2 % (0-2); PLATELET COUNT 367 x10^3mcL (130-400); RED CELL DISTRIBUTION WIDTH 12.7 % (11.5-14.5)
[2018-04-18 07:40] LABS: CALCIUM 9.4 mg/dL (8.5-10.1); CARBON DIOXIDE 30.7 mmol/L (21-32); CHLORIDE SERUM 104 mmol/L (98-107); CREATININE SERUM 1.1 mg/dL (0.7-1.3); GFR1 > 60 mL/min; GLUCOSE SERUM 180 mg/dL (74-106); POTASSIUM SERUM 4.9 mmol/L (3.5-5.1); SODIUM SERUM 142 mmol/L (136-145)
[2018-04-18 08:56] VITALS: BP 135/68
[2018-04-18 13:40] VITALS: BP 124/64
[2018-04-18 15:59] VITALS: BP 124/64
== END 2018-04-18 17:40 | disposition home or self-care (01) | DRG 194 ==
LOC: ED 13:39 → DU 16:21
PROVIDERS: Internal Medicine; Specialist
PROC: 0HBRXZZ Excision of Toe Nail, External Approach (ICD-10-PCS; principal; 2018-04-18)
PROC: 0HBRXZZ Excision of Toe Nail, External Approach (ICD-10-PCS; 2018-04-18)
PROC: 0HBRXZZ Excision of Toe Nail, External Approach (ICD-10-PCS; 2018-04-18)
PROC: 0HBRXZZ Excision of Toe Nail, External Approach (ICD-10-PCS; 2018-04-18)
PROC: 0HBRXZZ Excision of Toe Nail, External Approach (ICD-10-PCS; 2018-04-18)
PROC: 0HBRXZZ Excision of Toe Nail, External Approach (ICD-10-PCS; 2018-04-18)
PROC: 0HBRXZZ Excision of Toe Nail, External Approach (ICD-10-PCS; 2018-04-18)
PROC: 0HBRXZZ Excision of Toe Nail, External Approach (ICD-10-PCS; 2018-04-18)
PROC: 0HBRXZZ Excision of Toe Nail, External Approach (ICD-10-PCS; 2018-04-18)
PROC: 0HBRXZZ Excision of Toe Nail, External Approach (ICD-10-PCS; 2018-04-18)
DX: I13.0 Hypertensive heart and chronic kidney disease with heart failure and stage 1 through stage 4 chronic kidney disease, or unspecified chronic kidney disease (principal); N17.9 Acute kidney failure, unspecified; E11.22 Type 2 diabetes mellitus with diabetic chronic kidney disease; E66.01 Morbid (severe) obesity due to excess calories; E11.51 Type 2 diabetes mellitus with diabetic peripheral angiopathy without gangrene; I42.9 Cardiomyopathy, unspecified; I25.10 Atherosclerotic heart disease of native coronary artery without angina pectoris; B35.1 Tinea unguium; Z68.43 Body mass index [BMI] 50.0-59.9, adult; B35.3 Tinea pedis; E78.5 Hyperlipidemia, unspecified; I50.9 Heart failure, unspecified; F32.9 Major depressive disorder, single episode, unspecified; I87.2 Venous insufficiency (chronic) (peripheral); N18.9 Chronic kidney disease, unspecified; J44.9 Chronic obstructive pulmonary disease, unspecified; Z83.3 Family history of diabetes mellitus; Z82.49 Family history of ischemic heart disease and other diseases of the circulatory system; Z79.82 Long term (current) use of aspirin; Z79.84 Long term (current) use of oral hypoglycemic drugs; Z79.899 Other long term (current) drug therapy
CPT/HCPCS: 82962; 83880; 84439; J1815; J1940; Q0092

== ENCOUNTER 2018-05-11 13:31 | Emergency (ER) | payer OTHER ==
[~2018-05-11] VITALS: Ht 172.7 cm; Wt 164.2 kg
[2018-05-11 13:37] VITALS: Ht 172.7 cm; Wt 164.2 kg
[2018-05-11 14:28] LABS: CALCIUM 8.3 mg/dL (8.5-10.1); CARBON DIOXIDE 24.4 mmol/L (21-32); CHLORIDE SERUM 104 mmol/L (98-107); CREATININE SERUM 1.3 mg/dL (0.7-1.3); GFR1 > 60 mL/min; GLUCOSE SERUM 160 mg/dL (74-106); POTASSIUM SERUM 5.2 mmol/L (3.5-5.1); SODIUM SERUM 135 mmol/L (136-145)
[2018-05-11 15:02] VITALS: BP 132/71
== END 2018-05-11 15:02 | disposition home or self-care (01) ==
LOC: ED 13:31
PROVIDERS: Emergency Medicine
DX: R60.9 Edema, unspecified (principal); I13.0 Hypertensive heart and chronic kidney disease with heart failure and stage 1 through stage 4 chronic kidney disease, or unspecified chronic kidney disease; E11.22 Type 2 diabetes mellitus with diabetic chronic kidney disease; N18.9 Chronic kidney disease, unspecified; I50.9 Heart failure, unspecified; J45.909 Unspecified asthma, uncomplicated
CPT/HCPCS: J1940

== ENCOUNTER 2018-05-12 12:58 | Inpatient (IN) | payer OTHER ==
[~2018-05-12] VITALS: Ht 172.7 cm; Wt 170.3 kg
[2018-05-12 13:05] VITALS: Ht 172.7 cm; Wt 170.3 kg
[2018-05-12 13:53] LABS: PLATELET COUNT 309 x10^3mcL (130-400); RED CELL DISTRIBUTION WIDTH 13.3 % (11.5-14.5)
[2018-05-12 14:23] LABS: UA SPECIFIC GRAVITY 1.025 (1.005-1.035); microscopic required? YES; urine erythrocyte 2+ (NEGATIVE)
[2018-05-12 14:25] LABS: BILIRUBIN TOTAL 0.5 mg/dL (0.20-1.00); CALCIUM 8.5 mg/dL (8.5-10.1); CARBON DIOXIDE 24.3 mmol/L (21-32); CREATININE SERUM 1.5 mg/dL (0.7-1.3); MAGNESIUM 1.2 mg/dL (1.8-2.4)
[2018-05-12 14:26] LABS: ALBUMIN 2.1 g/dL (3.4-5.0)
[2018-05-12 14:27] LABS: POTASSIUM SERUM 5.9 mmol/L (3.5-5.1)
[2018-05-12 15:28] LABS: BAND NEUTROPHIL 22 % (0-10); BASOPHIL 0 % (0-2); METAMYELOCTE 1 % (0-2); MONOCYTE 1 % (0-7); MYELOCYTE 1 % (0-2); SEGMENTED NEUTROPHILS 73 % (37-75)
[2018-05-12 15:29] LABS: PLATELET MORPHOLOGY PLATELETS NORMAL; rbc morphology (normal/abnorm) NORMAL (NORMAL)
[2018-05-12 17:20] LABS: CHOLESTEROL/HDL RATIO 3.4
[2018-05-12 17:44] VITALS: BP 124/64
[2018-05-12 18:30] VITALS: BP 125/35
[2018-05-12 19:25] VITALS: BP 111/50
[2018-05-12 21:50] VITALS: BP 117/49
[2018-05-13 06:08] VITALS: BP 107/49
[2018-05-13 06:30] LABS: CARBON DIOXIDE 25.1 mmol/L (21-32); CREATININE SERUM 1.5 mg/dL (0.7-1.3); POTASSIUM SERUM 4.6 mmol/L (3.5-5.1)
[2018-05-13 06:48] LABS: PLATELET COUNT 248 x10^3mcL (130-400); RED CELL DISTRIBUTION WIDTH 13.6 % (11.5-14.5)
[2018-05-13 07:21] LABS: BASOPHIL % 0 % (0-2)
[2018-05-13 08:27] VITALS: BP 108/53
[2018-05-13 12:12] VITALS: BP 120/49
[2018-05-13 16:24] VITALS: BP 100/60
[2018-05-13 19:18] VITALS: BP 110/56
[2018-05-13 20:24] VITALS: BP 100/51
[2018-05-14 05:26] VITALS: BP 106/50
[2018-05-14 06:59] LABS: PLATELET COUNT 250 x10^3mcL (130-400); RED CELL DISTRIBUTION WIDTH 13.7 % (11.5-14.5)
[2018-05-14 07:11] LABS: CALCIUM 8.3 mg/dL (8.5-10.1); CARBON DIOXIDE 23.7 mmol/L (21-32); CREATININE SERUM 1.4 mg/dL (0.7-1.3); POTASSIUM SERUM 4.6 mmol/L (3.5-5.1)
[2018-05-14 07:39] LABS: BASOPHIL % 0 % (0-2)
[2018-05-14 08:37] VITALS: BP 107/54
[2018-05-14 12:24] VITALS: BP 124/63
[2018-05-14 16:39] VITALS: BP 119/61
[2018-05-14 19:10] VITALS: BP 98/56
[2018-05-15 05:39] VITALS: BP 107/54
[2018-05-15 06:04] LABS: BASOPHIL % 0.2 % (0-2); PLATELET COUNT 244 x10^3mcL (130-400)
[2018-05-15 06:23] LABS: CALCIUM 8.3 mg/dL (8.5-10.1); CARBON DIOXIDE 23.9 mmol/L (21-32); CREATININE SERUM 1.6 mg/dL (0.7-1.3); POTASSIUM SERUM 4.7 mmol/L (3.5-5.1)
[2018-05-15 09:23] VITALS: BP 117/52
[2018-05-15 13:46] VITALS: BP 128/50
[2018-05-15 16:14] VITALS: BP 128/50
[2018-05-15 16:51] VITALS: BP 118/47
[2018-05-15 21:09] VITALS: BP 119/45
[2018-05-16 06:09] VITALS: BP 125/48
[2018-05-16 06:21] LABS: CARBON DIOXIDE 23.6 mmol/L (21-32); CREATININE SERUM 1.5 mg/dL (0.7-1.3); POTASSIUM SERUM 4.7 mmol/L (3.5-5.1)
[2018-05-16 06:27] LABS: PLATELET COUNT 293 x10^3mcL (130-400); RED CELL DISTRIBUTION WIDTH 14.1 % (11.5-14.5)
[2018-05-16 06:35] LABS: BASOPHIL % 0 % (0-2)
[2018-05-16 08:50] VITALS: BP 144/71
[2018-05-16 13:33] VITALS: BP 128/64
[2018-05-16 17:25] VITALS: BP 130/52
[2018-05-16 20:55] VITALS: BP 144/66
[2018-05-17 05:16] VITALS: BP 136/47
[2018-05-17 08:41] VITALS: BP 126/63
[2018-05-17 12:27] VITALS: BP 122/55
[2018-05-17 16:51] VITALS: BP 147/71
[2018-05-17 19:10] VITALS: BP 149/68
[2018-05-17 21:21] VITALS: BP 133/67
[2018-05-18 05:51] VITALS: BP 134/63
[2018-05-18 06:13] LABS: RED CELL DISTRIBUTION WIDTH 13.9 % (11.5-14.5)
[2018-05-18 06:20] LABS: PLATELET COUNT 416 x10^3mcL (130-400)
[2018-05-18 06:29] LABS: CALCIUM 8.4 mg/dL (8.5-10.1); CARBON DIOXIDE 23.5 mmol/L (21-32); CHLORIDE SERUM 101 mmol/L (98-107); CREATININE SERUM 1.2 mg/dL (0.7-1.3); GFR1 > 60 mL/min; GLUCOSE SERUM 174 mg/dL (74-106); POTASSIUM SERUM 4.2 mmol/L (3.5-5.1); SODIUM SERUM 132 mmol/L (136-145)
[2018-05-18 08:52] VITALS: BP 126/66
[2018-05-18 12:11] LABS: BAND NEUTROPHIL 5 % (0-10); BASOPHIL 0 % (0-2); METAMYELOCTE 1 % (0-2); MONOCYTE 9 % (0-7); MYELOCYTE 1 % (0-2); SEGMENTED NEUTROPHILS 68 % (37-75); rbc morphology (normal/abnorm) ABNORMAL (NORMAL)
[2018-05-18 12:12] LABS: PLATELET MORPHOLOGY PLATELETS INCREASED; ovalocyte/elliptocyte 1+
[2018-05-18 12:32] VITALS: BP 105/60
[2018-05-18 15:31] VITALS: BP 105/60
== END 2018-05-18 16:15 | disposition home or self-care (01) | DRG 720 ==
LOC: ED 12:58 → DU 16:34
PROVIDERS: Emergency Medicine; Internal Medicine
DX: A40.8 Other streptococcal sepsis (principal); N17.9 Acute kidney failure, unspecified; E11.51 Type 2 diabetes mellitus with diabetic peripheral angiopathy without gangrene; E66.01 Morbid (severe) obesity due to excess calories; E87.5 Hyperkalemia; I24.9 Acute ischemic heart disease, unspecified; I50.9 Heart failure, unspecified; I13.0 Hypertensive heart and chronic kidney disease with heart failure and stage 1 through stage 4 chronic kidney disease, or unspecified chronic kidney disease; I42.9 Cardiomyopathy, unspecified; I25.10 Atherosclerotic heart disease of native coronary artery without angina pectoris; J44.9 Chronic obstructive pulmonary disease, unspecified; E78.00 Pure hypercholesterolemia, unspecified; L03.116 Cellulitis of left lower limb; L03.115 Cellulitis of right lower limb; N18.9 Chronic kidney disease, unspecified; F32.9 Major depressive disorder, single episode, unspecified; Z79.82 Long term (current) use of aspirin; Z83.3 Family history of diabetes mellitus; Z82.49 Family history of ischemic heart disease and other diseases of the circulatory system; Z79.899 Other long term (current) drug therapy; I25.2 Old myocardial infarction; Z68.43 Body mass index [BMI] 50.0-59.9, adult
CPT/HCPCS: 80201; 82962; 83880; 87804; J1644; J1940; J2543; J3370; J3475; J3490; J7030; Q0092; Q0162

== ENCOUNTER 2018-05-20 13:04 | Inpatient (IN) | payer OTHER ==
[~2018-05-20] VITALS: Ht 172.7 cm; Wt 167.9 kg
[2018-05-20 13:09] VITALS: Ht 172.7 cm; Wt 167.9 kg
[2018-05-20 14:33] LABS: BASOPHIL % 0.2 % (0-2)
[2018-05-20 14:48] LABS: CALCIUM 8.3 mg/dL (8.5-10.1); CARBON DIOXIDE 21.4 mmol/L (21-32); CREATININE SERUM 1.9 mg/dL (0.7-1.3); POTASSIUM SERUM 4.7 mmol/L (3.5-5.1)
[2018-05-20 14:52] LABS: PLATELET COUNT 541 x10^3mcL (130-400)
[2018-05-20 15:00] LABS: BILIRUBIN TOTAL 0.2 mg/dL (0.20-1.00)
[2018-05-20 15:01] LABS: ALBUMIN 1.8 g/dL (3.4-5.0)
[2018-05-20 17:43] LABS: PHOSPHOROUS 4.9 mg/dL (2.5-4.9)
[2018-05-20 17:47] LABS: T3 TOTAL 0.61 ng/mL
[2018-05-20 17:53] LABS: FREE T4 0.9 ng/dL (0.76-1.46)
[2018-05-20 17:54] VITALS: BP 134/62
[2018-05-20 17:54] LABS: CHOLESTEROL/HDL RATIO 3.1
[2018-05-20 17:55] VITALS: BP 144/56
[2018-05-20 17:55] LABS: FREE THYROXINE INDEX 1.6 ug/dL (1.4-4.5); T4(THYROXINE) 4.3 ug/dL (4.7-13.3)
[2018-05-20 21:40] VITALS: BP 117/54
[2018-05-21 04:58] VITALS: BP 128/50
[2018-05-21 06:41] LABS: RED CELL DISTRIBUTION WIDTH 14.2 % (11.5-14.5)
[2018-05-21 06:42] LABS: PLATELET COUNT 522 x10^3mcL (130-400)
[2018-05-21 06:56] LABS: CALCIUM 8.9 mg/dL (8.5-10.1); CARBON DIOXIDE 18.8 mmol/L (21-32); CREATININE SERUM 2.1 mg/dL (0.7-1.3); POTASSIUM SERUM 4.7 mmol/L (3.5-5.1)
[2018-05-21 08:49] VITALS: BP 129/63
[2018-05-21 10:58] LABS: ATYPICAL LYMPH 2 %; BAND NEUTROPHIL 0 % (0-10); BASOPHIL 0 % (0-2); MONOCYTE 3 % (0-7); SEGMENTED NEUTROPHILS 92 % (37-75)
[2018-05-21 11:00] LABS: rbc morphology (normal/abnorm) ABNORMAL (NORMAL)
[2018-05-21 11:01] LABS: PLATELET MORPHOLOGY PLATELETS INCREASED
[2018-05-21 13:34] VITALS: BP 116/48
[2018-05-21 17:11] VITALS: BP 125/55
[2018-05-21 20:20] VITALS: BP 124/67
[2018-05-22 05:50] VITALS: BP 112/54
[2018-05-22 06:53] LABS: CALCIUM 8.2 mg/dL (8.5-10.1); CARBON DIOXIDE 21.3 mmol/L (21-32); CREATININE SERUM 2.4 mg/dL (0.7-1.3); POTASSIUM SERUM 5.3 mmol/L (3.5-5.1)
[2018-05-22 07:07] LABS: RED CELL DISTRIBUTION WIDTH 13.9 % (11.5-14.5)
[2018-05-22 08:27] VITALS: BP 141/80
[2018-05-22 09:27] LABS: BAND NEUTROPHIL 0 % (0-10); BASOPHIL 0 % (0-2); MONOCYTE 2 % (0-7); SEGMENTED NEUTROPHILS 89 % (37-75)
[2018-05-22 09:29] LABS: PLATELET MORPHOLOGY PLATELETS INCREASED; rbc morphology (normal/abnorm) ABNORMAL (NORMAL)
[2018-05-22 11:29] LABS: PLATELET COUNT 530 x10^3mcL (130-400)
[2018-05-22 12:25] VITALS: BP 143/55
[2018-05-22 16:10] LABS: microscopic required? YES; urine erythrocyte TRACE (NEGATIVE)
[2018-05-22 16:25] VITALS: BP 127/54
[2018-05-22 21:22] VITALS: BP 146/74
[2018-05-23 05:25] VITALS: BP 98/51
[2018-05-23 06:05] LABS: CALCIUM 8.2 mg/dL (8.5-10.1); CREATININE SERUM 2.9 mg/dL (0.7-1.3); MAGNESIUM 2.3 mg/dL (1.8-2.4); PHOSPHOROUS 7.1 mg/dL (2.5-4.9); POTASSIUM SERUM 5.1 mmol/L (3.5-5.1)
[2018-05-23 06:52] LABS: BASOPHIL % 0.2 % (0-2); RED CELL DISTRIBUTION WIDTH 13.8 % (11.5-14.5)
[2018-05-23 09:26] VITALS: BP 139/76
[2018-05-23 10:24] LABS: PLATELET COUNT 519 x10^3mcL (130-400); rbc morphology (normal/abnorm) ABNORMAL (NORMAL)
[2018-05-24] MEDS ORDERED: CLINDAMYCIN HC300 MG PO (16:46)
[2018-05-24] MEDS ORDERED: CARVEDILOL6.25 M1 PO (16:46)
== END 2018-05-23 11:43 | disposition left against medical advice (07) | DRG 720 ==
LOC: ED 13:04 → DU 16:11
PROVIDERS: Emergency Medicine; Internal Medicine
DX: A41.9 Sepsis, unspecified organism (principal); N17.0 Acute kidney failure with tubular necrosis; I50.33 Acute on chronic diastolic (congestive) heart failure; D68.69 Other thrombophilia; E11.21 Type 2 diabetes mellitus with diabetic nephropathy; E11.22 Type 2 diabetes mellitus with diabetic chronic kidney disease; N18.3 Chronic kidney disease, stage 3 (moderate); E11.42 Type 2 diabetes mellitus with diabetic polyneuropathy; E11.51 Type 2 diabetes mellitus with diabetic peripheral angiopathy without gangrene; E11.65 Type 2 diabetes mellitus with hyperglycemia; K21.9 Gastro-esophageal reflux disease without esophagitis; E66.01 Morbid (severe) obesity due to excess calories; I42.9 Cardiomyopathy, unspecified; E87.1 Hypo-osmolality and hyponatremia; E87.5 Hyperkalemia; L03.115 Cellulitis of right lower limb; I87.8 Other specified disorders of veins; D64.9 Anemia, unspecified; F32.9 Major depressive disorder, single episode, unspecified; I25.10 Atherosclerotic heart disease of native coronary artery without angina pectoris; Z68.43 Body mass index [BMI] 50.0-59.9, adult; Z79.84 Long term (current) use of oral hypoglycemic drugs; J44.9 Chronic obstructive pulmonary disease, unspecified; Z79.82 Long term (current) use of aspirin; Z79.899 Other long term (current) drug therapy; Z83.3 Family history of diabetes mellitus; Z82.49 Family history of ischemic heart disease and other diseases of the circulatory system; Z87.891 Personal history of nicotine dependence; E78.5 Hyperlipidemia, unspecified; J98.4 Other disorders of lung; Z71.3 Dietary counseling and surveillance; Z59.0 Homelessness; R23.4 Changes in skin texture; I13.0 Hypertensive heart and chronic kidney disease with heart failure and stage 1 through stage 4 chronic kidney disease, or unspecified chronic kidney disease; I87.2 Venous insufficiency (chronic) (peripheral); B35.1 Tinea unguium; Z71.89 Other specified counseling
CPT/HCPCS: 82962; 83880; 84439; 85378; 94150; C9113; J1644; J1940; J2405; J3370; J3490; J7030; J7620; Q0092; Q9967

== ENCOUNTER 2018-05-24 14:34 | Inpatient (IN) | payer OTHER ==
[~2018-05-24] VITALS: Ht 172.7 cm; Wt 175.3 kg
[2018-05-24 15:20] LABS: BASOPHIL % 0.3 % (0-2); PLATELET COUNT 594 x10^3mcL (130-400); RED CELL DISTRIBUTION WIDTH 14.1 % (11.5-14.5)
[2018-05-24 15:30] LABS: BILIRUBIN TOTAL 0.16 mg/dL (0.20-1.00); CALCIUM 8.5 mg/dL (8.5-10.1); CARBON DIOXIDE 22.3 mmol/L (21-32); CREATININE SERUM 2.2 mg/dL (0.7-1.3); POTASSIUM SERUM 5.2 mmol/L (3.5-5.1)
[2018-05-24 15:33] LABS: ALBUMIN 1.8 g/dL (3.4-5.0); TOTAL PROTEIN, SERUM 8.6 g/dL (6.4-8.2)
[2018-05-24 16:34] LABS: MAGNESIUM 2.2 mg/dL (1.8-2.4)
[2018-05-24] MEDS ORDERED: CARVEDILOL6.25 M1 PO (16:46)
[2018-05-24] MEDS ORDERED: CLINDAMYCIN HC300 MG PO (16:46)
[2018-05-24 16:47] LABS: CHOLESTEROL/HDL RATIO 3.1
[2018-05-24 17:52] VITALS: BP 155/70
[2018-05-24 20:54] VITALS: BP 141/77
[2018-05-25 00:05] LABS: UA SPECIFIC GRAVITY 1.015 (1.005-1.035); microscopic required? YES; urine erythrocyte TRACE (NEGATIVE)
[2018-05-25 00:14] LABS: AMPHETAMINE QUAL UR NONE DETECTED (See below)
[2018-05-25 06:15] VITALS: BP 111/69
[2018-05-25 06:22] LABS: BILIRUBIN TOTAL 0.15 mg/dL (0.20-1.00); CALCIUM 8.8 mg/dL (8.5-10.1); CARBON DIOXIDE 23.3 mmol/L (21-32); PHOSPHOROUS 5.5 mg/dL (2.5-4.9); POTASSIUM SERUM 5.1 mmol/L (3.5-5.1)
[2018-05-25 06:27] LABS: BASOPHIL % 0.5 % (0-2); RED CELL DISTRIBUTION WIDTH 14.1 % (11.5-14.5)
[2018-05-25 06:50] LABS: ALBUMIN 1.7 g/dL (3.4-5.0); TOTAL PROTEIN, SERUM 8.4 g/dL (6.4-8.2)
[2018-05-25 07:09] LABS: PLATELET COUNT 603 x10^3mcL (130-400)
[2018-05-25 07:32] LABS: IRON 29 ug/dL (65-170); TOTAL IRON BINDING CAPACITY 150 ug/dL (250-450)
[2018-05-25 08:18] VITALS: BP 168/73
[2018-05-25 09:06] VITALS: BP 116/66
[2018-05-25 12:52] VITALS: BP 119/47
[2018-05-25 17:39] VITALS: BP 148/64
[2018-05-25 20:20] VITALS: BP 117/54
[2018-05-26 05:31] VITALS: BP 142/69
[2018-05-26 07:01] LABS: BASOPHIL % 0.6 % (0-2); RED CELL DISTRIBUTION WIDTH 14.4 % (11.5-14.5)
[2018-05-26 07:22] LABS: BILIRUBIN TOTAL 0.1 mg/dL (0.20-1.00); CALCIUM 8.6 mg/dL (8.5-10.1); CARBON DIOXIDE 21.2 mmol/L (21-32); CREATININE SERUM 1.5 mg/dL (0.7-1.3); POTASSIUM SERUM 4.9 mmol/L (3.5-5.1)
[2018-05-26 07:23] LABS: ALBUMIN 1.7 g/dL (3.4-5.0); TOTAL PROTEIN, SERUM 8.3 g/dL (6.4-8.2)
[2018-05-26 10:10] LABS: PLATELET COUNT 650 x10^3mcL (130-400)
[2018-05-26 10:15] VITALS: BP 134/62
[2018-05-26 12:55] VITALS: BP 119/65
[2018-05-26 17:01] VITALS: BP 116/52
[2018-05-26 19:30] VITALS: BP 118/68
[2018-05-26 20:53] VITALS: BP 136/59
[2018-05-27 05:47] LABS: BASOPHIL % 0.5 % (0-2)
[2018-05-27 06:10] VITALS: BP 137/71
[2018-05-27 06:55] LABS: CALCIUM 8.9 mg/dL (8.5-10.1); CARBON DIOXIDE 26.1 mmol/L (21-32); CREATININE SERUM 1.5 mg/dL (0.7-1.3); POTASSIUM SERUM 4.8 mmol/L (3.5-5.1)
[2018-05-27 07:27] LABS: PLATELET COUNT 695 x10^3mcL (130-400)
[2018-05-27 09:20] VITALS: BP 140/66
[2018-05-27 14:45] VITALS: BP 153/77
[2018-05-27 18:01] VITALS: BP 118/58
[2018-05-27 20:49] VITALS: BP 136/61
[2018-05-28 06:02] VITALS: BP 134/66
[2018-05-28 06:20] LABS: ALBUMIN 1.8 g/dL (3.4-5.0); BILIRUBIN TOTAL 0.17 mg/dL (0.20-1.00); CALCIUM 9.2 mg/dL (8.5-10.1); CARBON DIOXIDE 30.3 mmol/L (21-32); CREATININE SERUM 1.4 mg/dL (0.7-1.3); MAGNESIUM 1.6 mg/dL (1.8-2.4); POTASSIUM SERUM 4.9 mmol/L (3.5-5.1); TOTAL PROTEIN, SERUM 8.6 g/dL (6.4-8.2)
[2018-05-28 06:22] LABS: BASOPHIL % 0.6 % (0-2); RED CELL DISTRIBUTION WIDTH 13.2 % (11.5-14.5)
[2018-05-28 07:33] LABS: PLATELET COUNT 780 x10^3mcL (130-400)
[2018-05-28 09:45] VITALS: BP 136/70
[2018-05-28 13:23] VITALS: BP 137/62
[2018-05-28 15:23] VITALS: BP 137/62
== END 2018-05-28 16:24 | disposition home or self-care (01) | DRG 194 ==
LOC: ED 14:34 → DU 15:40
PROVIDERS: Emergency Medicine; Internal Medicine
DX: I13.0 Hypertensive heart and chronic kidney disease with heart failure and stage 1 through stage 4 chronic kidney disease, or unspecified chronic kidney disease (principal); N17.9 Acute kidney failure, unspecified; E11.22 Type 2 diabetes mellitus with diabetic chronic kidney disease; E11.51 Type 2 diabetes mellitus with diabetic peripheral angiopathy without gangrene; E66.01 Morbid (severe) obesity due to excess calories; L03.115 Cellulitis of right lower limb; I42.9 Cardiomyopathy, unspecified; N18.9 Chronic kidney disease, unspecified; I50.33 Acute on chronic diastolic (congestive) heart failure; D63.8 Anemia in other chronic diseases classified elsewhere; E83.39 Other disorders of phosphorus metabolism; F32.9 Major depressive disorder, single episode, unspecified; F17.210 Nicotine dependence, cigarettes, uncomplicated; I25.10 Atherosclerotic heart disease of native coronary artery without angina pectoris; Z59.0 Homelessness; Z79.82 Long term (current) use of aspirin; Z79.4 Long term (current) use of insulin; Z79.84 Long term (current) use of oral hypoglycemic drugs; Z98.1 Arthrodesis status; Z83.3 Family history of diabetes mellitus; Z82.49 Family history of ischemic heart disease and other diseases of the circulatory system
CPT/HCPCS: 82962; 83880; 90658; J1815; J1940; J3490; J7040; Q0092

== ENCOUNTER 2018-07-16 17:08 | Inpatient (IN) | payer OTHER ==
[~2018-07-16] VITALS: Ht 172.7 cm; Wt 167.8 kg
[~2018-07-16 17:08] MED LIST changes: +CARVEDILOL6.25 M1 PO
[2018-07-16 17:11] VITALS: Ht 172.7 cm; Wt 167.8 kg
[2018-07-16 17:44] LABS: BASOPHIL % 0.8 % (0-2); PLATELET COUNT 348 x10^3mcL (130-400)
[2018-07-16 17:45] LABS: RED CELL DISTRIBUTION WIDTH 14.6 % (11.5-14.5)
[2018-07-16 17:56] LABS: AMPHETAMINE QUAL UR NONE DETECTED (See below)
[2018-07-16 20:29] LABS: BILIRUBIN TOTAL 0.17 mg/dL (0.20-1.00); CALCIUM 8.8 mg/dL (8.5-10.1); CARBON DIOXIDE 23.4 mmol/L (21-32); CREATININE SERUM 1.4 mg/dL (0.7-1.3); TOTAL PROTEIN, SERUM 8.1 g/dL (6.4-8.2)
[2018-07-16 20:32] LABS: ALBUMIN 2.3 g/dL (3.4-5.0); POTASSIUM SERUM 6.3 mmol/L (3.5-5.1)
[2018-07-16 23:01] VITALS: BP 153/69
[2018-07-17 06:42] VITALS: BP 145/74
[2018-07-17 06:48] LABS: BASOPHIL % 0.4 % (0-2); PLATELET COUNT 351 x10^3mcL (130-400)
[2018-07-17 07:22] LABS: RED CELL DISTRIBUTION WIDTH 14.9 % (11.5-14.5)
[2018-07-17 07:37] LABS: CALCIUM 8.6 mg/dL (8.5-10.1); CARBON DIOXIDE 26.9 mmol/L (21-32); CHLORIDE SERUM 109 mmol/L (98-107); CREATININE SERUM 1.3 mg/dL (0.7-1.3); GFR1 > 60 mL/min; GLUCOSE SERUM 223 mg/dL (74-106); SODIUM SERUM 139 mmol/L (136-145)
[2018-07-17 08:04] LABS: POTASSIUM SERUM 6.1 mmol/L (3.5-5.1)
[2018-07-17 08:14] VITALS: BP 138/51
[2018-07-17 12:10] VITALS: BP 114/50
[2018-07-17 16:08] VITALS: BP 112/55
[2018-07-17 20:30] VITALS: BP 147/58
[2018-07-18 05:15] VITALS: BP 147/71
[2018-07-18 07:00] LABS: BASOPHIL % 0.5 % (0-2); PLATELET COUNT 325 x10^3mcL (130-400)
[2018-07-18 07:11] LABS: RED CELL DISTRIBUTION WIDTH 15.1 % (11.5-14.5)
[2018-07-18 07:22] LABS: CALCIUM 8.8 mg/dL (8.5-10.1); CARBON DIOXIDE 25.6 mmol/L (21-32); CHLORIDE SERUM 105 mmol/L (98-107); CREATININE SERUM 1.1 mg/dL (0.7-1.3); GFR1 > 60 mL/min; GLUCOSE SERUM 193 mg/dL (74-106); POTASSIUM SERUM 5.2 mmol/L (3.5-5.1); SODIUM SERUM 137 mmol/L (136-145)
[2018-07-18 09:00] VITALS: BP 120/99
[2018-07-18 13:32] VITALS: BP 157/76
[2018-07-18 15:57] VITALS: BP 157/76
== END 2018-07-18 17:23 | disposition home or self-care (01) | DRG 194 ==
LOC: ED 17:08 → DU 21:01
PROVIDERS: Emergency Medicine; Internal Medicine
PROC: 0HBRXZZ Excision of Toe Nail, External Approach (ICD-10-PCS; principal; 2018-07-18)
PROC: 0HBRXZZ Excision of Toe Nail, External Approach (ICD-10-PCS; 2018-07-18)
PROC: 0HBRXZZ Excision of Toe Nail, External Approach (ICD-10-PCS; 2018-07-18)
PROC: 0HBRXZZ Excision of Toe Nail, External Approach (ICD-10-PCS; 2018-07-18)
PROC: 0HBRXZZ Excision of Toe Nail, External Approach (ICD-10-PCS; 2018-07-18)
PROC: 0HBRXZZ Excision of Toe Nail, External Approach (ICD-10-PCS; 2018-07-18)
PROC: 0HBRXZZ Excision of Toe Nail, External Approach (ICD-10-PCS; 2018-07-18)
PROC: 0HBRXZZ Excision of Toe Nail, External Approach (ICD-10-PCS; 2018-07-18)
PROC: 0HBRXZZ Excision of Toe Nail, External Approach (ICD-10-PCS; 2018-07-18)
PROC: 0HBRXZZ Excision of Toe Nail, External Approach (ICD-10-PCS; 2018-07-18)
DX: I11.0 Hypertensive heart disease with heart failure (principal); E11.40 Type 2 diabetes mellitus with diabetic neuropathy, unspecified; E66.01 Morbid (severe) obesity due to excess calories; E87.5 Hyperkalemia; B35.1 Tinea unguium; I50.9 Heart failure, unspecified; I25.10 Atherosclerotic heart disease of native coronary artery without angina pectoris; I87.8 Other specified disorders of veins; F32.9 Major depressive disorder, single episode, unspecified; F17.210 Nicotine dependence, cigarettes, uncomplicated; J45.909 Unspecified asthma, uncomplicated; Z68.43 Body mass index [BMI] 50.0-59.9, adult; Z86.14 Personal history of Methicillin resistant Staphylococcus aureus infection; Z83.3 Family history of diabetes mellitus; Z82.49 Family history of ischemic heart disease and other diseases of the circulatory system; Z79.899 Other long term (current) drug therapy; Z79.82 Long term (current) use of aspirin; Z79.84 Long term (current) use of oral hypoglycemic drugs; Z59.0 Homelessness
CPT/HCPCS: 82962; 83880; 99406; J1940; Q0092

== ENCOUNTER 2018-09-04 00:46 | Inpatient (IN) | payer OTHER ==
[~2018-09-04] VITALS: Ht 172.7 cm; Wt 176.5 kg
[2018-09-04 00:51] VITALS: Ht 172.7 cm; Wt 176.5 kg
[2018-09-04] MEDS ORDERED: PLAVIX75 M1 PO (01:48)
[2018-09-04 01:53] LABS: BASOPHIL % 0.5 % (0-2); PLATELET COUNT 327 x10^3mcL (130-400); RED CELL DISTRIBUTION WIDTH 12.6 % (11.5-14.5)
[2018-09-04 01:55] LABS: CALCIUM 8.3 mg/dL (8.5-10.1); CARBON DIOXIDE 27.6 mmol/L (21-32); CREATININE SERUM 1.4 mg/dL (0.7-1.3); POTASSIUM SERUM 4.5 mmol/L (3.5-5.1)
[2018-09-04 02:07] LABS: BILIRUBIN TOTAL 0.14 mg/dL (0.20-1.00); FREE T4 0.77 ng/dL (0.76-1.46); TOTAL PROTEIN, SERUM 7.3 g/dL (6.4-8.2)
[2018-09-04 02:12] LABS: ALBUMIN 1.9 g/dL (3.4-5.0)
[2018-09-04 02:48] LABS: UA SPECIFIC GRAVITY 1.025 (1.005-1.035); microscopic required? YES; urine erythrocyte 2+ (NEGATIVE)
[2018-09-04 03:00] LABS: AMPHETAMINE QUAL UR NONE DETECTED (See below)
[2018-09-04 03:28] LABS: MAGNESIUM 2.1 mg/dL (1.8-2.4)
[2018-09-04 03:38] LABS: CHOLESTEROL/HDL RATIO 4.9
[2018-09-04 03:48] VITALS: BP 135/70
[2018-09-04 06:35] VITALS: BP 148/88
[2018-09-04 08:49] VITALS: BP 149/70
[2018-09-04 12:49] VITALS: BP 120/52
[2018-09-04 17:05] VITALS: BP 140/75
[2018-09-04 21:06] VITALS: BP 129/51
[2018-09-05 05:30] VITALS: BP 142/82
[2018-09-05 07:02] LABS: CALCIUM 8.7 mg/dL (8.5-10.1); CARBON DIOXIDE 28.2 mmol/L (21-32); CHLORIDE SERUM 106 mmol/L (98-107); CREATININE SERUM 1.3 mg/dL (0.7-1.3); GFR1 > 60 mL/min; GLUCOSE SERUM 231 mg/dL (74-106); SODIUM SERUM 138 mmol/L (136-145)
[2018-09-05 08:58] VITALS: BP 151/73
[2018-09-05 10:23] LABS: BASOPHIL % 0.4 % (0-2); PLATELET COUNT 319 x10^3mcL (130-400)
[2018-09-05 13:41] VITALS: BP 133/64
[2018-09-05 16:49] VITALS: BP 121/55
[2018-09-05 21:46] VITALS: BP 110/53
[2018-09-06 05:54] VITALS: BP 104/42
[2018-09-06 10:02] LABS: CALCIUM 8.8 mg/dL (8.5-10.1); CARBON DIOXIDE 30.5 mmol/L (21-32); CHLORIDE SERUM 105 mmol/L (98-107); CREATININE SERUM 1.3 mg/dL (0.7-1.3); GFR1 > 60 mL/min; GLUCOSE SERUM 231 mg/dL (74-106); POTASSIUM SERUM 5.3 mmol/L (3.5-5.1); SODIUM SERUM 138 mmol/L (136-145)
[2018-09-06 10:05] LABS: BASOPHIL % 0.4 % (0-2); PLATELET COUNT 361 x10^3mcL (130-400); RED CELL DISTRIBUTION WIDTH 13.8 % (11.5-14.5)
[2018-09-06 10:17] VITALS: BP 135/49
[2018-09-06 12:29] VITALS: BP 138/72
[2018-09-06 17:00] VITALS: BP 150/75
[2018-09-06 19:50] VITALS: BP 143/57
[2018-09-07 05:12] VITALS: BP 140/52
[2018-09-07 07:46] LABS: BASOPHIL % 0.4 % (0-2); PLATELET COUNT 370 x10^3mcL (130-400); RED CELL DISTRIBUTION WIDTH 13.9 % (11.5-14.5)
[2018-09-07 07:55] LABS: CALCIUM 9.1 mg/dL (8.5-10.1); CARBON DIOXIDE 27.8 mmol/L (21-32); CHLORIDE SERUM 101 mmol/L (98-107); CREATININE SERUM 1.3 mg/dL (0.7-1.3); GFR1 > 60 mL/min; GLUCOSE SERUM 201 mg/dL (74-106); POTASSIUM SERUM 4.9 mmol/L (3.5-5.1); SODIUM SERUM 136 mmol/L (136-145)
[2018-09-07 09:05] VITALS: BP 131/76
[2018-09-07 13:13] VITALS: BP 135/50
[2018-09-07 14:15] VITALS: BP 135/50
== END 2018-09-07 15:57 | disposition home or self-care (01) | DRG 194 ==
LOC: ED 00:46 → DU 02:42
PROVIDERS: Emergency Medicine; ADMIT Internal Medicine
DX: I13.0 Hypertensive heart and chronic kidney disease with heart failure and stage 1 through stage 4 chronic kidney disease, or unspecified chronic kidney disease (principal); E11.22 Type 2 diabetes mellitus with diabetic chronic kidney disease; E11.51 Type 2 diabetes mellitus with diabetic peripheral angiopathy without gangrene; E11.65 Type 2 diabetes mellitus with hyperglycemia; J44.9 Chronic obstructive pulmonary disease, unspecified; I50.9 Heart failure, unspecified; F32.9 Major depressive disorder, single episode, unspecified; E66.01 Morbid (severe) obesity due to excess calories; I25.10 Atherosclerotic heart disease of native coronary artery without angina pectoris; N18.9 Chronic kidney disease, unspecified; Z59.0 Homelessness; Z98.1 Arthrodesis status
CPT/HCPCS: 82962; 83880; 84439; 85378; 87804; 97116-GP; 97530-GP; J1940; Q0092

== ENCOUNTER 2018-10-04 10:45 | Emergency (ER) | payer OTHER ==
[~2018-10-04] VITALS: Ht 172.7 cm; Wt 173.3 kg
[~2018-10-04 10:45] MED LIST changes: +PLAVIX75 M1 PO
[2018-10-04 10:49] VITALS: Ht 172.7 cm; Wt 173.3 kg
[2018-10-04 11:56] LABS: BASOPHIL % 0.3 % (0-2); PLATELET COUNT 351 x10^3mcL (130-400)
[2018-10-04 12:04] LABS: CALCIUM 8.8 mg/dL (8.5-10.1); CARBON DIOXIDE 30.9 mmol/L (21-32); CREATININE SERUM 1.5 mg/dL (0.7-1.3); POTASSIUM SERUM 4.6 mmol/L (3.5-5.1)
[2018-10-04 12:08] LABS: BILIRUBIN TOTAL 0.17 mg/dL (0.20-1.00); TOTAL PROTEIN, SERUM 7.2 g/dL (6.4-8.2)
[2018-10-04 12:57] VITALS: BP 131/699
== END 2018-10-04 12:58 | disposition home or self-care (01) ==
LOC: ED 10:45
PROVIDERS: Emergency Medicine
DX: I11.0 Hypertensive heart disease with heart failure (principal); I50.9 Heart failure, unspecified; E11.9 Type 2 diabetes mellitus without complications; F32.9 Major depressive disorder, single episode, unspecified; F17.210 Nicotine dependence, cigarettes, uncomplicated; Z71.6 Tobacco abuse counseling
CPT/HCPCS: 36415; 83880; 99406; J7620; Q0092

== ENCOUNTER 2018-10-16 08:45 | Inpatient (IN) | payer OTHER ==
[~2018-10-16] VITALS: Ht 172.7 cm; Wt 166.1 kg
[2018-10-16 08:57] VITALS: Ht 172.7 cm; Wt 166.1 kg
[2018-10-16 10:54] LABS: BASOPHIL % 1.7 % (0-2); PLATELET COUNT 346 x10^3mcL (130-400); RED CELL DISTRIBUTION WIDTH 14.1 % (11.5-14.5)
[2018-10-16 11:06] LABS: CALCIUM 8.6 mg/dL (8.5-10.1); CARBON DIOXIDE 26.7 mmol/L (21-32); CHLORIDE SERUM 108 mmol/L (98-107); CREATININE SERUM 1.2 mg/dL (0.7-1.3); GFR1 > 60 mL/min; GLUCOSE SERUM 214 mg/dL (74-106); POTASSIUM SERUM 4.8 mmol/L (3.5-5.1); SODIUM SERUM 140 mmol/L (136-145)
[2018-10-16 11:11] LABS: ALKALINE PHOSPHATASE 163 U/L (46-116); ALT/SGPT 15 U/L (16-63); AST/SGOT 14 U/L (15-37); BILIRUBIN TOTAL 0.16 mg/dL (0.20-1.00); TOTAL PROTEIN, SERUM 7.2 g/dL (6.4-8.2)
[2018-10-16 11:14] LABS: ALBUMIN 1.7 g/dL (3.4-5.0)
[2018-10-16] MEDS ORDERED: HYDROCHLOROTH12.5 M2 PO (14:45)
[2018-10-16 15:44] LABS: MAGNESIUM 2.1 mg/dL (1.8-2.4)
[2018-10-16 15:45] LABS: CHOLESTEROL/HDL RATIO 5.5
[2018-10-16 18:20] VITALS: BP 145/67
[2018-10-16 21:00] VITALS: BP 137/62
[2018-10-17 05:34] VITALS: BP 137/73
[2018-10-17 06:10] LABS: BASOPHIL % 0.5 % (0-2); PLATELET COUNT 360 x10^3mcL (130-400); RED CELL DISTRIBUTION WIDTH 14.2 % (11.5-14.5)
[2018-10-17 06:27] LABS: CALCIUM 8.6 mg/dL (8.5-10.1); CARBON DIOXIDE 27.4 mmol/L (21-32); CREATININE SERUM 1.4 mg/dL (0.7-1.3); POTASSIUM SERUM 4.6 mmol/L (3.5-5.1)
[2018-10-17 08:45] VITALS: BP 113/61
[2018-10-17 12:43] VITALS: BP 144/44
[2018-10-17 17:00] VITALS: BP 139/67
[2018-10-17 21:03] VITALS: BP 134/72
[2018-10-18 05:30] VITALS: BP 137/65
[2018-10-18 09:08] VITALS: BP 130/60
[2018-10-18 13:28] VITALS: BP 143/73
[2018-10-18 15:14] LABS: microscopic required? YES; urine erythrocyte 1+ (NEGATIVE)
[2018-10-18 16:19] LABS: AMPHETAMINE QUAL UR NONE DETECTED (See below)
[2018-10-18 16:36] VITALS: BP 143/70
[2018-10-18 20:50] VITALS: BP 137/61
[2018-10-19 05:33] VITALS: BP 152/70
[2018-10-19 06:40] LABS: CALCIUM 8.9 mg/dL (8.5-10.1); CARBON DIOXIDE 30.4 mmol/L (21-32); CREATININE SERUM 2.2 mg/dL (0.7-1.3); POTASSIUM SERUM 5.2 mmol/L (3.5-5.1)
[2018-10-19 06:59] LABS: BASOPHIL % 0.7 % (0-2); PLATELET COUNT 387 x10^3mcL (130-400); RED CELL DISTRIBUTION WIDTH 12.8 % (11.5-14.5)
[2018-10-19 09:00] VITALS: BP 156/76
[2018-10-19 13:00] VITALS: BP 122/65
[2018-10-19 17:02] VITALS: BP 147/72
[2018-10-19 20:44] VITALS: BP 140/58
[2018-10-20 05:13] VITALS: BP 152/73
[2018-10-20 07:14] VITALS: BP 152/73
[2018-10-20 07:41] LABS: BASOPHIL % 0.3 % (0-2); CALCIUM 8.8 mg/dL (8.5-10.1); CARBON DIOXIDE 31.8 mmol/L (21-32); CREATININE SERUM 2.1 mg/dL (0.7-1.3); PLATELET COUNT 376 x10^3mcL (130-400); POTASSIUM SERUM 4.8 mmol/L (3.5-5.1); RED CELL DISTRIBUTION WIDTH 13.8 % (11.5-14.5)
[2018-10-20 09:37] VITALS: BP 118/51
[2018-10-20 09:51] VITALS: BP 118/51
== END 2018-10-20 11:15 | disposition home or self-care (01) | DRG 133 ==
LOC: ED 08:45 → DU 13:32
PROVIDERS: Emergency Medicine; ADMIT Internal Medicine
DX: J96.21 Acute and chronic respiratory failure with hypoxia (principal); I50.43 Acute on chronic combined systolic (congestive) and diastolic (congestive) heart failure; N17.9 Acute kidney failure, unspecified; E11.51 Type 2 diabetes mellitus with diabetic peripheral angiopathy without gangrene; I42.9 Cardiomyopathy, unspecified; E66.2 Morbid (severe) obesity with alveolar hypoventilation; Z68.43 Body mass index [BMI] 50.0-59.9, adult; I11.0 Hypertensive heart disease with heart failure; F32.9 Major depressive disorder, single episode, unspecified; I50.82 Biventricular heart failure; J44.9 Chronic obstructive pulmonary disease, unspecified; R59.1 Generalized enlarged lymph nodes; I25.10 Atherosclerotic heart disease of native coronary artery without angina pectoris; Z79.82 Long term (current) use of aspirin; Z86.14 Personal history of Methicillin resistant Staphylococcus aureus infection; Z83.3 Family history of diabetes mellitus; I25.2 Old myocardial infarction; Z82.49 Family history of ischemic heart disease and other diseases of the circulatory system; Z91.19 Patient's noncompliance with other medical treatment and regimen
CPT/HCPCS: 82962; 83880; 85378; J1644; J1940; J7620; Q0092; Q9967

== ENCOUNTER 2019-01-30 16:16 | Inpatient (IN) | payer OTHER ==
[~2019-01-30] VITALS: Ht 172.7 cm; Wt 160.0 kg
[~2019-01-30 16:16] MED LIST changes: +HYDROCHLOROTH12.5 M2 PO
--- NOTE | 2019-01-30 17:40 | NUR ---
PT PRESENTS TO ED WITH C/O OF BILATERAL LEG PAIN. PT STS HE WAS "SCRUBBING LEGS IN SHOWER AND MY SKIN OPENED". PT REPORTS THIS OCCURRED YESTERDAY AND TODAY HE HAS HAD "NON STOP" PAIN. PT STS HE IS UNABLE TO AMBULATE ON OWN AND HAS "EXTREME PAIN" WHEN HE DOES. PT DENIES FEVER, SOB, OR N/V/D. PT LAYING ON GURNEY IN POSITION OF COMFORT, RESP E/U, VSS, NO ACUTE DISTRESS NOTED AT THIS TIME.
[2019-01-30 18:22] LABS: PLATELET COUNT 353 x10^3mcL (130-400); RED CELL DISTRIBUTION WIDTH 14.2 % (11.5-14.5)
[2019-01-30 18:27] LABS: BILIRUBIN TOTAL 0.6 mg/dL (0.20-1.00); CALCIUM 8.3 mg/dL (8.5-10.1); CARBON DIOXIDE 26.6 mmol/L (21-32); TOTAL PROTEIN, SERUM 7.1 g/dL (6.4-8.2)
[2019-01-30 18:29] LABS: ALBUMIN 2.4 g/dL (3.4-5.0)
--- NOTE | 2019-01-30 18:29 | NUR ---
ULTRASOUND AT BEDSIDE.
[2019-01-30] MEDS ORDERED: LISINOPRIL2.5 MG PO (19:05)
[2019-01-30] MEDS ORDERED: PLA75 (19:05)
[2019-01-30] MEDS ORDERED: METFORMIN500 M1 (19:05)
--- NOTE | 2019-01-30 19:05 | NUR ---
PT MEDICATED ORDERED (SEE EMAR FOR DETAILS). NO ADVERSE REACTIONS NOTED. PT AAOX4, RESP E/U, SLEEPING ON GURNEY, NO ACUTE DISTRESS NOTED AT THIS TIME.
--- NOTE | 2019-01-30 19:43 | NUR ---
REPORT GIVEN TO JAMIR MAYNADR ON TELE UNIT TO ASSUME CARE OF PT.
[2019-01-30 20:15] LABS: MONOCYTE 6 % (0-7); SEGMENTED NEUTROPHILS 74 % (37-75)
[2019-01-30 20:16] LABS: BAND NEUTROPHIL 14 % (0-10); BASOPHIL 0 % (0-2)
[2019-01-30 20:18] LABS: rbc morphology (normal/abnorm) ABNORMAL (NORMAL)
[2019-01-30 20:31] VITALS: BP 101/52
--- NOTE | 2019-01-30 20:46 | NUR ---
RECEIVED PT FROM ED VIA Qt SoftwareJENNY. ORIENTED PT TO ROOM AND SURROUNDINGS. IV NOTED TO KIMBER PATENT AND INTACT. TELE 5 PLACED ON PT READING SR WITH 1ST DEG AV BLOCK AND ELEVATED T WAVE. INSTRUCTED PT ON THE USE OF CALL LIGHT FOR ASSISTANCE. ENDORSED PT TO PRIMARY NURSE CAESAR
--- NOTE | 2019-01-30 20:47 | NUR ---
RECEIVED PT FROM JAMIR FOUNTAIN. PT A/OX4. DENIES SOB ON RA. IV PATENT TO RAC, INFUSING WELL WITH NO S/S OF INFILTRATION. SCABS AND EDEMA TO BLE, ELECTRIC BLANKET WIRER. ORIENTED PT TO ROOM AND SURROUNDINGS. CALL LIGHT WITHIN REACH, BED IN LOW POSITION. WILL CONTINUE TO MONITOR.
--- NOTE | 2019-01-31 04:16 | NUR ---
PT RESTING IN NO ACUTE DISTRESS. RR EVEN AND UNLABORED. CALL LIGHT WITHIN REACH, BED IN LOW POSITION. WILL CONTINUE TO MONITOR.
[2019-01-31 04:58] VITALS: BP 97/48
[2019-01-31 07:06] LABS: PLATELET COUNT 297 x10^3mcL (130-400); RED CELL DISTRIBUTION WIDTH 14.2 % (11.5-14.5)
--- NOTE | 2019-01-31 07:17 | NUR ---
RECEIVED REPORT FROM CAESAR BOWIE. PT RESTING IN BED HAVING RENAL ULTRASOUND. IV TO RAC IS PATENT AND INTACT.NO REDNESS OR PAIN. TELE # [address]. PT DENIES CHEST PAIN. PT ON ROOM AIR. NO C/O SOB AND NO DISTRESS NOTED. ALL QUSETIONS AND CONCERNS ADDRESSED.
[2019-01-31 07:28] LABS: CALCIUM 8.4 mg/dL (8.5-10.1); CARBON DIOXIDE 21.7 mmol/L (21-32); CREATININE SERUM 2.8 mg/dL (0.7-1.3); POTASSIUM SERUM 5.2 mmol/L (3.5-5.1)
--- NOTE | 2019-01-31 08:40 | NUR ---
IN TO SEE PATIENT AND ADMINISTER MEDICATION. PT RESTING IN BED C/O FULL BODY PAIN 02/28. REBECCA MYERS. CONSULTED WITH PHARMACY FOR RANDOM KULWINDERO. AWAITING REBECCA KNIGHT TO BE DRAWN.
--- NOTE | 2019-01-31 08:49 | NUR ---
SPOKE WITH DR GARG TO NOTIFY OF PT K+ 5.2 AND NO DIET ORDER. DR GARG ORDERED DIABETIC DIET AND WILL BE IN TO SEE PATIENT FOR POTASSIUM.
[2019-01-31 09:26] VITALS: BP 99/48
--- NOTE | 2019-01-31 09:51 | NUR ---
CALLED PHARMACY TO NOTIFY OF RANDOM VANCO 12.4 PER PHARMACIST 09:00 DOSE WAS CANCELLED BECAUSE PT WAS GIVEN IT IN PHARMACY. PHARMACIST TO SCHEDULE VANCO TO START TODAY.
--- NOTE | 2019-01-31 11:46 | NUR ---
IN TO SEE PATIENT AND ADMINISTER MEDICATION (SEE eMAR). PT RESTING COMFORTABLY IN BED. ALL NEEDS MET.
[2019-01-31 14:10] LABS: ATYPICAL LYMPH 5 %; BAND NEUTROPHIL 43 % (0-10); BASOPHIL 0 % (0-2); MONOCYTE 2 % (0-7); SEGMENTED NEUTROPHILS 45 % (37-75)
[2019-01-31 14:11] LABS: PLATELET MORPHOLOGY PLATELETS NORMAL
[2019-01-31 14:12] LABS: rbc morphology (normal/abnorm) ABNORMAL (NORMAL)
--- NOTE | 2019-01-31 16:05 | NUR ---
IN TO SEE PATIENT AND ADMINISTER MEDICATION (SEE eMAR). PT RESTING COMFORTABLY IN BED. ALL NEEDS MET.
[2019-01-31 16:15] LABS: microscopic required? YES; urine erythrocyte 1+ (NEGATIVE)
[2019-01-31 18:30] VITALS: BP 119/70
--- NOTE | 2019-01-31 19:08 | NUR ---
PT RESTING COMFORTABLY IN BED. IV TO RAC IS PATENT AND INTACT. NO REDNESS OR PAIN. TELE # [address] PT DENIES CHEST PAIN. PT ON ROOM AIR. NO C/O SOB AND NO DISTRESS NOTED. WILL ENDORSE ALL CARE TO ONCOMING NURSE.
--- NOTE | 2019-01-31 19:52 | NUR ---
SHIFT REASSESSMENT DONE.PATIENT ALERT AND ORIENTED.BREATHING EASY,PATIENT IS MORBIDLY OBESE.GEN WEAKNESS.[facility] IV SITE.TELE 5 1ST DEGREE AVB.BLE SCABS,REDNESS.ALEXEI.BLE EDEMA NOTED.ON PLAVIX,NO SCD.CALL LIGHT IN REACH.
--- NOTE | 2019-01-31 21:08 | NUR ---
PM MEDS GIVEN.
[2019-01-31 21:34] VITALS: BP 117/78
--- NOTE | 2019-01-31 22:13 | NUR ---
PATIENT YELLING ,WANTED TO GO RESTROOM BUT IV HAS NO EXTENSION TUBING,CANNOT DISCONNECT,PULL OF TAPE.ASK GARRY IF HE CAN PUT A NEW IV SITE.
--- NOTE | 2019-01-31 22:14 | NUR ---
PATIENT STILL IN RESTROOM,AMBULATED.
--- NOTE | 2019-01-31 23:14 | NUR ---
EXTENSION TUBING APPLIED TO HEPLOCK RAC,THANKS GARRY.PATIENT CAN BE MEAN AT TIMES,WANTED TO GET UP ALONE,,FALL PRECAUTION.
--- NOTE | 2019-02-01 01:00 | NUR ---
CHECKED AT INTERVALS FOR NEEDS AND SAFETY.
--- NOTE | 2019-02-01 01:38 | NUR ---
RECEIVED FROM LAB,POSITIVE RESULT MRSA NARES.CHARGE NURSE AWARE.WILL HAVE AM SHIFT TELL DR GARG WHEN MAKE ROUNDS THIS AM FOR TREATMENT.
--- NOTE | 2019-02-01 04:53 | NUR ---
UP AND ABOUT RESTROOM,IV WITH EXTENSION TUBING EASY TO HANDLE.
[2019-02-01 05:22] VITALS: BP 111/72
--- NOTE | 2019-02-01 05:50 | NUR ---
TRIED TO FIX TELE,PATIENT SCREAMING,DO NOT WANT TO BE DISTURBED.CANNOT FIND THE BOX,LAURENT HELPING ME NOW FIND IT,MAYBE LAYING ON IT.
[2019-02-01 07:18] LABS: PLATELET COUNT 282 x10^3mcL (130-400); RED CELL DISTRIBUTION WIDTH 13.9 % (11.5-14.5)
--- NOTE | 2019-02-01 07:30 | NUR ---
RC'D PT RESTING IN BED WITH NO APPARENT SIGNS OF DISTRESS. A/A/O/X4, SPEECH CLEAR AND APPROPRIATE. DENIES EMANUEL/DIZZINESS. ON TELE, YEIMI CHEST PAIN/PRESSURE. PALP PULSES, WEAK PULSES NOTED TO BLE. EDEMA NOTED TO BLE. PT NONCOMPLIANT WITH ELEAVTIGNG BLE ON PILLOWS. RESPIRAITONS EQUAL AND UNLABORED LUNGS DIM IN BASES. ON RA, DENIES SOB. ABDOMEN OBESE AND ROUND. ACTIVE BS. DENIES N/V. VOIDS FREELY, DENIES BURNING. AMBULATORY WITH ASSIST. GENERALIZED WEAKNESS. IV PATENT AND INTACT. BED IN LOW POSITION. CALL LIGHT IN REACH. WILL CONTINUE TO MNIOITOR
[2019-02-01 07:39] LABS: BILIRUBIN TOTAL 0.33 mg/dL (0.20-1.00); CALCIUM 8.9 mg/dL (8.5-10.1); CARBON DIOXIDE 21.4 mmol/L (21-32); CREATININE SERUM 1.9 mg/dL (0.7-1.3); PHOSPHOROUS 3.3 mg/dL (2.5-4.9); POTASSIUM SERUM 4.2 mmol/L (3.5-5.1); TOTAL PROTEIN, SERUM 6.9 g/dL (6.4-8.2)
[2019-02-01 08:29] LABS: ALBUMIN 1.9 g/dL (3.4-5.0)
[2019-02-01 09:35] VITALS: BP 107/57
--- NOTE | 2019-02-01 09:40 | NUR ---
AM MEDICATION GIVEN. PT TOLERATED WELL. RESPIRATIONS EQUAL. ON RA, DENIES SOB. BED IN LOWEST [POSITION. PT AGITATED AND REPORTS "I WANT TO BE LEFT ALONE WITH THE DOOR CLOSED". BED IN LOWEST POSITION. CALL LIGHT IN REACH. WILL CONTINUE TO MONITOR
--- NOTE | 2019-02-01 09:51 | NUR ---
DR GARG NOTIFIED REGARDING PTS BP, LOW DIASTOLIC THIS AM. PER DR GARG OKAY TO GIVE NEXT LASIX IVP IF SYSTOLIC IS OKAY AND DIASTOLIC IS LOW. WILL CONT TO MONITOR
[2019-02-01 12:00] VITALS: Ht 172.7 cm; Wt 160.0 kg
[2019-02-01 12:17] VITALS: BP 124/56
--- NOTE | 2019-02-01 12:32 | NUR ---
PT RESTING IN BED WITH NO APPARENT SIGNS OF DISTRESS. RESPIRATIONS EQUAL AND UNLABORED. ON RA, DENIES SOB. BED IN LOW POSITION. CALL LIGHT IN REACH. WILL CONTINUE TO MONITOR
[2019-02-01 13:26] LABS: BAND NEUTROPHIL 50 % (0-10); MONOCYTE 5 % (0-7); SEGMENTED NEUTROPHILS 39 % (37-75)
[2019-02-01 13:28] LABS: rbc morphology (normal/abnorm) NORMAL (NORMAL)
[2019-02-01 13:29] LABS: PLATELET MORPHOLOGY PLATELETS NORMAL
--- NOTE | 2019-02-01 14:33 | NUR ---
NOTIFIED BY TELE THAT TELE LEADS OFF. WENT TO PT ROOM TO REPLACE TELE LEADS, PT AGITATED AND YELLED "LEAVE ME ALONE, GET OUT AND CLOSE MY DOOR". TELE MONITOR AND CHARGE NURSE NOTIFIED. WILL REATTEMPT SHORTLY.
--- NOTE | 2019-02-01 15:05 | NUR ---
PT CONT TO REFUSE TELE. DR. GARG CALLED AND MADE AWARE. WITH ORDER TO FLIP PT TO MED-SURG. ORDER CARRIED OUT.
--- NOTE | 2019-02-01 17:13 | NUR ---
PT REFUSED BS CHECK AT THIS TIME. CHARGE NURSE NOTIFIED AND MADE AWARE. WILL CONTINUE TO MONITOR
[2019-02-01 18:10] VITALS: BP 139/95
--- NOTE | 2019-02-01 18:28 | NUR ---
PT RESTING IN BED SLEEPING WITH EQUAL CHEST RISE/FALL. MEDSURG. NO S/S OF CP/PRESSURE. EDEMA NOTED TO BLE/RLE. RESPIRATIONS EQUAL AND UNLABORED. ON RA, DENIES SOB. ABDOMEN ROUND AND DISTENDED. DENIES N/V. AMB WITH ASSIST. GENERALIZED WEAKNESS. NO ACUTE SKIN CHANGES NOTED AT THIS TIME. IV PATENT AND INTACT. BED IN LOW POSIITON. CALL LIGHT IN REACH. WILL ENDORSE TO SALESPERSON MEATS RN
--- NOTE | 2019-02-01 19:48 | NUR ---
PT C/O GENERALIZED PAIN. GAVE PT NORCO PO. PT TOLERATED IT WELL. WILL CONTINUE TO MONITOR.
--- NOTE | 2019-02-01 20:00 | NUR ---
PT A/A/O X4. DENIES DIZZINESS AND HEADACHE. BREATH SOUNDS CLEAR. BREATHING EVEN AND UNLABORED ON ROOM AIR. DENIES CHEST PAIN AND PRESSURE. BOWEL SOUNDS ACTIVE. NO C/O N/V AND ABD PAIN. PITTING EDEMA WITH ERYTHEMA NOTED ON BLE. SCATTERED SCABS NOTED ON BLE. PT NON COMPLIANT ELEVATING BLE TO PILLOWS. IV INTACT ON THE RAC. MADE PT COMFORTABLE. PLACED CALL LIGHT WITH IN REACH. WILL CONTINUE TO MONITOR.
[2019-02-01 21:08] VITALS: BP 104/59
--- NOTE | 2019-02-01 21:08 | NUR ---
PT TEMP 100.5. COOLING MEASURES IMPLEMENTED. WILL CONTINUE TO MONITOR.
--- NOTE | 2019-02-01 22:07 | NUR ---
PT TEMP 99.2. COOLING MEASURES CONTINUED TO BE IMPLEMENTED. WILL CONTINUE TO MONITOR.
--- NOTE | 2019-02-01 23:40 | NUR ---
PT C/O GENERALIZED PAIN. GAVE PT NORCO PO. PT TOLERATED IT WELL. WILL CONTINUE TO MONITOR.
--- NOTE | 2019-02-02 00:58 | NUR ---
PT RESTING WITH EYES CLOSED. COOLING MEASURES CONTINUED TO BE IMPLEMENTED. NO DISTRESS AND DISCOMFORT NOTED. WILL CONTINUE TO MONITOR.
[2019-02-02 05:30] VITALS: BP 129/79
--- NOTE | 2019-02-02 06:03 | NUR ---
PT C/O GENERALIZED PAIN. GAVE PT NORCO PO. PT TOLERATED IT WELL. PT REFUSED INSULIN COVERAGE. PT TEMP 98.7. MADE PT COMFORTABLE. PLACED CALL LIGHT WITH IN REACH. WILL ENDORSE TO THE AM NURSE ACCORDINGLY.
[2019-02-02 06:50] LABS: BILIRUBIN TOTAL 0.25 mg/dL (0.20-1.00); CALCIUM 9.4 mg/dL (8.5-10.1); CARBON DIOXIDE 22.1 mmol/L (21-32); CREATININE SERUM 1.7 mg/dL (0.7-1.3); POTASSIUM SERUM 4.4 mmol/L (3.5-5.1); TOTAL PROTEIN, SERUM 7.1 g/dL (6.4-8.2)
[2019-02-02 06:56] LABS: PLATELET COUNT 261 x10^3mcL (130-400)
[2019-02-02 06:58] LABS: RED CELL DISTRIBUTION WIDTH 14.7 % (11.5-14.5)
[2019-02-02 07:19] LABS: ALBUMIN 1.8 g/dL (3.4-5.0)
--- NOTE | 2019-02-02 07:46 | NUR ---
RECEIVED PT FROM SPLITTER HEAD NURSE. PT IN BED SLEEPING, AROUSABLE, RESP E/U ON RA. NO ACUTE DISTRESS NOTED. SALINE LOCK TO RAC W/ NO ERYTHEMA OR EDEMA. BED IN LOWEST POSITION AND CALL LIGHT WITHIN REACH. WILL CONTINUE TO MONITOR.
[2019-02-02 08:31] VITALS: BP 111/63
[2019-02-02 11:32] LABS: BAND NEUTROPHIL 40 % (0-10); BASOPHIL 0 % (0-2); MONOCYTE 6 % (0-7); SEGMENTED NEUTROPHILS 43 % (37-75)
--- NOTE | 2019-02-02 12:11 | NUR ---
PT IN BED SLEEPING, AROUSABLE, RESP E/U ON RA. NO ACUTE DISTRESS NOTED. BED IN LOWEST POSITION AND CALL LIGHT WITHIN REACH. WILL CONTINUE TO MONITOR.
[2019-02-02 16:36] VITALS: BP 127/65
--- NOTE | 2019-02-02 19:18 | NUR ---
PT IN BED SLEEPING, AROUSABLE, RESP E/U ON RA. REPORTS MILD ABD PAIN BUT TOLERABLE, STATED HE WOULD JUST LIKE TO REST. BED IN LOWEST POSITION AND CALL LIGHT WITHIN REACH. WILL ENDORSE TO ONCOMING NURSE.
--- NOTE | 2019-02-02 19:38 | NUR ---
PATIENT RECEIVED AWAKE, ALERT, ORIENTED X4 IN BED. RESPIRATION EVEN AND UNLABORED, ON ROOM AIR. BLE SCABS, ERYTHEMA AND +2-3 EDEMA R>L. NO GI COMPLAINTS NOTED. VOIDING FREELY WITHOUT DIFFICULTY. AMBULATORY. DENIES PAIN AT THIS TIME. SALINE LOCK TO RIGHT ANTECUBITAL AREA PATENT AND INTACT. 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 WILL CONTINUE TO MONITOR.
--- NOTE | 2019-02-02 20:16 | NUR ---
PATIENT COMPLAINED OF ACHING BACK PAIN, 05/31. MEDICATED WITH NORCO 7.5/325 MG PO ORDERED. WILL CONTINUE TO MONITOR.
[2019-02-02 21:56] VITALS: BP 123/85
[2019-02-03 05:35] VITALS: BP 137/76
--- NOTE | 2019-02-03 06:25 | NUR ---
PATIENT RESTING IN BED. RESPIRATIION EVEN AND UNLABORED, ON ROOM AIR. DENIES PAIN AT THIS TIME. ON CONTACT ISOLATION FRO MRSA OF NARES. ASSISTED WITH NEEDS. SFETY OBSEVERED. PLACED BE IN HE LOWEST POSITION. WILL CONTINUE TO MONITOR
[2019-02-03 06:49] LABS: BILIRUBIN TOTAL 0.23 mg/dL (0.20-1.00); CALCIUM 9.1 mg/dL (8.5-10.1); CARBON DIOXIDE 22.6 mmol/L (21-32); CREATININE SERUM 1.5 mg/dL (0.7-1.3); MAGNESIUM 1.9 mg/dL (1.8-2.4); PHOSPHOROUS 3.5 mg/dL (2.5-4.9); POTASSIUM SERUM 4.4 mmol/L (3.5-5.1); TOTAL PROTEIN, SERUM 6.9 g/dL (6.4-8.2)
[2019-02-03 06:56] LABS: ALBUMIN 1.7 g/dL (3.4-5.0)
[2019-02-03 07:08] LABS: PLATELET COUNT 285 x10^3mcL (130-400)
--- NOTE | 2019-02-03 07:11 | NUR ---
RECEIVED PT FROM INSPECTOR DIALS NURSE. PT SITTING UPRIGHT IN BED, AOX4. REPORTED MILD ABD PAIN BUT TOLERABLE. STATED HE WOULD LIKE TO REST AT THIS TIME. SALINE LOCK TO RAC W/ NO ERYTHEMA OR EDEMA. BED IN LOWEST POSITION AND CALL LIGHT WITHIN REACH. CONTACT PRECAUTIONS MAINTAINED. WILL CONTINUE TO MONITOR.
[2019-02-03 08:03] LABS: RED CELL DISTRIBUTION WIDTH 14.6 % (11.5-14.5)
[2019-02-03 08:45] VITALS: BP 120/48
[2019-02-03 13:36] VITALS: BP 120/48
[2019-02-03 13:42] LABS: BAND NEUTROPHIL 9 % (0-10); MONOCYTE 8 % (0-7); SEGMENTED NEUTROPHILS 69 % (37-75)
[2019-02-03 13:43] LABS: rbc morphology (normal/abnorm) NORMAL (NORMAL)
[2019-02-03 13:44] LABS: PLATELET MORPHOLOGY PLATELETS NORMAL
--- NOTE | 2019-02-03 14:45 | NUR ---
PT DISCHARGED. REVIEWED VISIT SUMMARY AND EDUCATIONAL PACKET W/ PT INCLUDING NEW PRESCRIPTION MEDS AND FOLLOW UP INSTRUCTIONS. PT AOX4, RESP E/U ON RA, VS STABLE, DENIES PAIN. IV REMOVED, CATH INTACT, DRESSING APPLIED. PT ESCORTED TO DISCHARGE OFFICE BY DACIA MORIN VIA WHEELCHAIR W/ NO ACUTE INCIDENCE.
== END 2019-02-03 14:54 | disposition home or self-care (01) | DRG 383 ==
LOC: ED 16:16 → DU 18:51 → MU 02-01 15:18
PROVIDERS: Emergency Medicine; Internal Medicine; ADMIT Internal Medicine
DX: L03.115 Cellulitis of right lower limb (principal); G93.41 Metabolic encephalopathy; N17.9 Acute kidney failure, unspecified; E11.21 Type 2 diabetes mellitus with diabetic nephropathy; E11.51 Type 2 diabetes mellitus with diabetic peripheral angiopathy without gangrene; E66.01 Morbid (severe) obesity due to excess calories; I42.9 Cardiomyopathy, unspecified; E11.22 Type 2 diabetes mellitus with diabetic chronic kidney disease; I13.0 Hypertensive heart and chronic kidney disease with heart failure and stage 1 through stage 4 chronic kidney disease, or unspecified chronic kidney disease; F32.9 Major depressive disorder, single episode, unspecified; I25.10 Atherosclerotic heart disease of native coronary artery without angina pectoris; N18.9 Chronic kidney disease, unspecified; Z60.2 Problems related to living alone; E87.5 Hyperkalemia; D63.8 Anemia in other chronic diseases classified elsewhere; I50.32 Chronic diastolic (congestive) heart failure; B95.4 Other streptococcus as the cause of diseases classified elsewhere; G47.30 Sleep apnea, unspecified; Z79.82 Long term (current) use of aspirin; Z79.84 Long term (current) use of oral hypoglycemic drugs; Z86.14 Personal history of Methicillin resistant Staphylococcus aureus infection; Z83.3 Family history of diabetes mellitus; Z82.49 Family history of ischemic heart disease and other diseases of the circulatory system; Z91.19 Patient's noncompliance with other medical treatment and regimen; Z79.899 Other long term (current) drug therapy
CPT/HCPCS: 82962; 83880; G0378; J1644; J1815; J1940; J2270; J2543; J3370; J7030; Q0092

== ENCOUNTER 2019-02-22 18:18 | Emergency (ER) | payer OTHER ==
[~2019-02-22] VITALS: Ht 172.7 cm; Wt 154.2 kg
[~2019-02-22 18:18] MED LIST changes: +METFORMIN500 M1; +PLA75
[2019-02-22 18:38] VITALS: Ht 172.7 cm; Wt 154.2 kg
[2019-02-22 20:24] VITALS: BP 147/71
== END 2019-02-22 20:25 | disposition home or self-care (01) ==
LOC: ED 18:18
DX: L03.115 Cellulitis of right lower limb (principal); I87.8 Other specified disorders of veins; E66.01 Morbid (severe) obesity due to excess calories; I10 Essential (primary) hypertension; E11.9 Type 2 diabetes mellitus without complications; Z98.890 Other specified postprocedural states
CPT/HCPCS: 82962; J1885; Q0092

== ENCOUNTER 2019-05-03 18:10 | Inpatient (IN) | payer OTHER ==
[~2019-05-03] VITALS: Ht 172.7 cm; Wt 161.5 kg
[2019-05-03 18:31] VITALS: Ht 172.7 cm; Wt 161.5 kg
--- NOTE | 2019-05-03 18:39 | NUR ---
PATIENT AAOX4 PRESENTS TO THE ED WITH GENERALIZED WEAKNESS THAT STARTED SEVERAL DAYS AGO. PT STS "I THINK I HAVE A BLOOD INFECTION BECAUSE I FEEL THE SAME SYMPTOMS I DID BEFORE" PT RESP ARE 26 AND HAS A PRODUCTIVE COUGH. PT UNABLE TO SAY WHAT COLOR PHLEGM IS. LUNGS CONGESTED AND WET IN BILATERAL UPPER AND LOWER LOBES. SKIN DRY, SCALY, EDEMATOUS 2+ EDEMA NOTED TO BILATERAL EXTREMITIES. HEALING SCAB TO RIGHT LOWER CALF- PT STS "IT'S FROM THE EDEMA". PT PLACED ON ALL MONITORS FOR FURTHER OBSERVATION. WILL CONTINUE TO MONITOR.
--- NOTE | 2019-05-03 19:00 | NUR ---
DR KAISER BEDSIDE PROVIDING MSE
--- NOTE | 2019-05-03 19:19 | NUR ---
PROVIDED REPORT TO JAMIR NUNO FOR FURTHER CARE OF PATIENT.
[2019-05-03 19:38] LABS: BASOPHIL % 0.2 % (0-2); PLATELET COUNT 296 x10^3mcL (130-400)
[2019-05-03 19:39] LABS: CALCIUM 7.6 mg/dL (8.5-10.1); CARBON DIOXIDE 28.6 mmol/L (21-32); CREATININE SERUM 2.3 mg/dL (0.7-1.3); POTASSIUM SERUM 4.3 mmol/L (3.5-5.1)
[2019-05-03 19:44] LABS: BILIRUBIN TOTAL 0.27 mg/dL (0.20-1.00); TOTAL PROTEIN, SERUM 7.3 g/dL (6.4-8.2)
[2019-05-03 19:45] LABS: ALBUMIN 2.2 g/dL (3.4-5.0)
--- NOTE | 2019-05-03 20:35 | NUR ---
SALINE LOCK INSERTED POST SEVERAL ATTEMPT. aNTIBIOTIC IS INFUDING fLUID INFUSING.
[2019-05-03 21:19] LABS: MAGNESIUM 1.7 mg/dL (1.8-2.4)
--- NOTE | 2019-05-03 21:30 | NUR ---
MD INSERTED SALINE LOCK ON THE LEFT AC.
--- NOTE | 2019-05-03 22:30 | NUR ---
PATIENT WAS GIVEN HEPARIN BOLUS 500 UNITS AND HEPARIN DRIO STARTED AT 15 UNITS/HR. VITAL SIGNS RECHECK AND THE PATIENT WAS TRANSPORTED TO ROOM 220. REPORT WAS GIVEN TO AIME
--- NOTE | 2019-05-03 23:00 | NUR ---
RECEIVED PT FROM ED VIA GUERNEY, CAME IN DUE TO FEVER AND SOB. AAOX4. DENIES HEADACHE/DIZZINESS. C/O MILD SOB AND HAS NON-PRODUCTIVE COUGH, LUNG SOUNDS DIMINISHED ON THE BASES, O2 SAT=95%, RA. DENIES CHEST PAIN/PRESSURE, SR ON THE MONITOR. DENIES ABDOMINAL PAIN/NAUSEA/VOMITING. STATED THAT HE HAD X2 DAYS OF DIARRHEA, HAD X4 EPISODES TODAY. ABDOMEN IS SOFT AND ROUND. VOIDS. W/ BLE ERYTHEMA, DRY SKIN AND DRY SCABS, W/ LINEAR TEAR ON THE RIGHT GREAT TOE PLANTAR ASPECT, ALEXEI. W/ +3 EDEMA ON BLE. PEDAL PULSES WERE PRESENT USING A DOPPLER. C/0 5/10 BACK AND BLE PAIN. PT IS AMBULATORY. RECEIVED PT FROM ED W/ HEPARIN DRIP ONGOING AT 1500 UNITS/HR, VANCOMYCIN AT 200 ML/HR AND NS AT 130 ML/HR. IV SITES ON THE RIGHT WRIST AND LAC ARE PATENT AND INTACT. SIDE RAILS UPX2. CALL LIGHT ON REACH. PT'S SON AT BEDSIDE. SIDE RAILS UPX2. CALL LIGHT ON REACH. ENDORSED TO PRIMARY NURSE AIME FOR CONTINUITY OF CARE
[2019-05-03 23:13] VITALS: BP 136/63
--- NOTE | 2019-05-03 23:19 | NUR ---
PATIENT ON TELE 9, 1ST DEGREE BLOCK HR 90.
--- NOTE | 2019-05-03 23:28 | NUR ---
PATIENT GIVEN LATE DOSE OF COREG PER EMAR BECAUSE IT WAS NOT GIVEN WHILE HE WAS IN ER. PATIENT ALSO GIVEN NORCO PER EMAR FOR COMPLAINT OF 5/10 BACK PAIN. DENEIS CHEST PAIN. HEPARIN INFUSING AT 1500 ML/HR. BOTH IV SITES ARE PATENT, NO ERYTHEMA OR INFILTRATION. CALL LIGHT AND BEDSIDE TABLE WITHIN REACH. BED LOCKED AND IN LOWEST POSITION.
[2019-05-03 23:38] VITALS: BP 136/63
[2019-05-04 01:13] LABS: microscopic required? YES; urine erythrocyte 1+ (NEGATIVE)
[2019-05-04 01:24] LABS: AMPHETAMINE QUAL UR NONE DETECTED (See below)
--- NOTE | 2019-05-04 04:50 | NUR ---
LAB AT BEDSIDE TO DRAW PTT/TROPONIN.
--- NOTE | 2019-05-04 05:18 | NUR ---
PATIENT GIVEN NORCO PER EMAR FOR REPORT OF 5/10 BACK PAIN.
[2019-05-04 05:51] LABS: CARBON DIOXIDE 27.1 mmol/L (21-32); CREATININE SERUM 2.1 mg/dL (0.7-1.3); POTASSIUM SERUM 4.2 mmol/L (3.5-5.1)
[2019-05-04 05:59] VITALS: BP 140/65
[2019-05-04 06:11] LABS: BASOPHIL % 0.1 % (0-2); PLATELET COUNT 269 x10^3mcL (130-400); RED CELL DISTRIBUTION WIDTH 13.9 % (11.5-14.5)
--- NOTE | 2019-05-04 06:18 | NUR ---
RECIEVED CRITICAL RESULT. TROPONIN IS TRENDING DOWN TO 0.309. DR. GARG PAGERajeev. HEPARIN IS STILL INFUSING AT 1500 ML/HR, PTT HAS NOT RESULTED YET.
--- NOTE | 2019-05-04 06:43 | NUR ---
NO FURTHER SIGNIFICANT EVENTS. PATIENT REPORTS RELIEF OF BACK PAIN, NOW 3/5. HEPARIN INFUSING AT 1500 UNITS/HOUR. IV SITES INTACT WITHOUT ERYTHEMA OR INFILTRATION. TELE 9,1ST DEGREE BLOCK. CALL LIGHT AND BEDSIDE TABLE WITHIN REACH. WILL ENDORSE CARE TO DAYSHIFT NURSE.
[2019-05-04 06:45] VITALS: BP 117/63
--- NOTE | 2019-05-04 07:05 | NUR ---
RECIEVED PT RESTING IN BED WITH NO C/O PAIN OR DISTRESS AT THIS TIME. SON AT BEDSIDE. A/O X4 WITH NO EMANUEL OR DIZZINESS. TELE#9 CONNECTED TO PT, DENIES CP OR PRESSURE. NS RUNNING AT 130 ML/HR, ZOSYN PER EMAR, AND HEPARIN AT 1500 UNITS/HR IN LAC. VANCO RAN IN RIGHT WRIST PER EMAR. BOTH IV'S INTACT AND PATENT WITH NO REDNESS OR INFLAMMATION NOTED. SAFETY PRECAUTIONS IN PLACE, CALL LIGHT WITHIN REACH, WILL MONITOR.
--- NOTE | 2019-05-04 09:44 | NUR ---
PT PTT 33.9. CHANGE IN HEPARIN DRIP PER PROTOCAL, GAVE REBOLUS OF 9600 UNITS AND INCREASED DRIP 600 UNITS/HR. CHANGE PER PROTOCAL AND WITNESSED BY JAMIR MCGARRY. ORDER FOR PTT LAB PUT IN FOR 1340.
--- NOTE | 2019-05-04 10:50 | NUR ---
PT REPORTS 8/10 BACK PAIN, MEDICATED WITH NORCO PER EMAR, WILL REASSESS.
[2019-05-04 12:40] VITALS: BP 139/79
--- NOTE | 2019-05-04 13:30 | NUR ---
PT STABLE RESTING IN BED WITH NO C/O PAIN OR DISTRESS. TOLERATING ALL CARES WELL. SAFETY PRECAUTIONS IN PLACE, CALL LIGHT WITHIN REACH, WILL MONITOR.
--- NOTE | 2019-05-04 15:30 | NUR ---
PATIENT PTT 38.3. CHANGE IN HEPARIN DRIP PER PROTOCAL, GAVE REBOLUS OF 6400 UNITS AND INCREASED DRIP 300 UNITS/HR. CHANGE PER PROTOCAL AND WITNESSED BY JAMIR COVINGTON. ORDER FOR PTT LAB PUT IN FOR 1930.
--- NOTE | 2019-05-04 16:03 | NUR ---
ECHO PENDING. PATIENT RESTING AND ASKED FOR ECHO TO BE DONE ANOTHER TIME. WILL CHECK BACK WITH PATIENT LATER.
--- NOTE | 2019-05-04 16:30 | NUR ---
PT REPORTS 9/10 BACK PAIN, MEDICATED WITH MORPHINE PER EMAR, WILL REASSESS.
[2019-05-04 16:53] VITALS: BP 121/42
--- NOTE | 2019-05-04 17:57 | NUR ---
PT STABLE WITH NO C/O ANY DISTRESS AT THIS TIME. SON AT BEDSIDE. TELE# 9 CONNECTED TO PT, DENIES ANY CP OR PRESSURE. SALINE LOCK ON RIGHT WRIST AND LAC. BOTH IVS INTACT AND PATENT WITH NO REDNESS OR INFLAMMATION. HEPARIN DRIP RUNNING AT 2400 UNITS/HR IN LAC. SAFETY PRECAUTIONS IN PLACE, CALL LIGHT WITHIN REACH, WILL ENDORSE CARE TO NIGHT NURSE.
--- NOTE | 2019-05-04 19:30 | NUR ---
RECEIVED REPORT FROM DAY SHIFT RN. PT RESTING IN BED WITH EYES CLOSED. AROUSABLE WITH VERBAL STIMULI. ORIENTED X4. NO SOB ON ROOM AIR. IV TO RIGHT WRIST, INTACT. LAC, HEPARIN INFUSING AT 2400 UNITS/HR. SAFETY MEASURES IN PLACE. BED IN LOWEST POSITION. SIDE RAILS UP X2. INSTRUCTED PT TO USE THE CALL LIGHT FOR ASSISTANCE. CALL LIGHT WITHIN REACH. SON AT BEDSIDE.
[2019-05-04 20:49] VITALS: BP 146/75
--- NOTE | 2019-05-04 21:15 | NUR ---
PTT 38.4. 6400 UNITS HEPARIN REBOLUS GIVEN. CHANGED INFUSION RATE TO 2500 UNITS/HR (MAXIMUM ALLOWABLE RATE). NEXT PTT AT 0115.
--- NOTE | 2019-05-05 02:40 | NUR ---
PTT 26.5. HEPARIN REBOLUS 9600 UNITS GIVEN. HEPARIN INFUSION RATE REMAINS AT 2500 UNITS/HR (MAXIMUM ALLOWABLE RATE). NEXT PTT AT 0640.
--- NOTE | 2019-05-05 04:45 | NUR ---
MORPHINE GIVEN FOR BODYACHE 10 AND PHENERGAN FOR NAUSEA.
[2019-05-05 05:56] VITALS: BP 140/64
--- NOTE | 2019-05-05 06:32 | NUR ---
PT SLEPT AT LONG INTERVALS THROUGHOUT SHIFT. NO SOB NOTED ON ROOM AIR. C/O BODYACHE X2 MEDICATED WITH MORPHINE. HEPARIN DRIP INFUSING AT 2500 UNITS/HR. SAFETY MEASURES MAINTAINED. ALL NEEDS ATTENDED TO. CALL LIGHT WITHIN REACH. SON AT BEDSIDE. WILL ENDORSE CONTINUITY OF CARE TO ONCOMING RN.
[2019-05-05 07:04] LABS: PLATELET COUNT 277 x10^3mcL (130-400); RED CELL DISTRIBUTION WIDTH 13.7 % (11.5-14.5)
[2019-05-05 07:10] LABS: CALCIUM 8.2 mg/dL (8.5-10.1); CARBON DIOXIDE 24.7 mmol/L (21-32); CREATININE SERUM 1.7 mg/dL (0.7-1.3); POTASSIUM SERUM 4.3 mmol/L (3.5-5.1)
--- NOTE | 2019-05-05 07:10 | NUR ---
RECIEVED PT RESTING IN BED. PT REPORTS CONSTANT BACL/BLE PAIN EVEN WITH PAIN MGMTMD AWARE. NON PHARMALOGICAL INTERVENTIONS CARRIED OUT. A/OX4 WITH NO EMANUEL OR DIZZINESS. TELE#9 CONNECTED TO PT, DINEIS ANY CP OR PRESSURE. NO SOB NOTED. RIGHT WRIST AND LAC INTACT AND PATENT WITH NO REDNESS. HERARIN RUNNING AT 2500 UNITS/HR IN LAC. SAFETY PRECAUTIONS IN PLACE, CALLL LIGHT WITHIN REACH, WILL MONITOR.
[2019-05-05 07:19] LABS: BASOPHIL % 0 % (0-2)
[2019-05-05 08:04] VITALS: BP 147/67
--- NOTE | 2019-05-05 08:45 | NUR ---
PATIENT PTT 41.8. PER HEPARIN PROTOCAL GAVE 6400 UNIT REBOLUS. COULD NOT INCREASE PUMP PER HEPARIN [place]OTOC[place] D[place] [address] UNIT/HR MAXIMUM. CHARGE AWARE AND PHARMACIST. WILL NOTIFY DR GARG.
--- NOTE | 2019-05-05 08:58 | NUR ---
RECEIVED ORDER TO DC HEPARIN AND START LOVENOX 1MG/KG BID. ATTENDING NURSE BILL MADE AWARE AND PHORMACIST NOTIFIED.
--- NOTE | 2019-05-05 09:00 | NUR ---
NEW ORDERS FROM DR GARG TO D/C HEPARIN AND START LOVENOX. CHARGE AWARE. NO NEED FOR ANOTHER PTT LAB IN 4 HOURS PER PHARMACIST. WILL CARRY OUT NEW ORDERS.
[2019-05-05 12:14] VITALS: BP 138/67
--- NOTE | 2019-05-05 14:59 | NUR ---
RECIEVEDE CALL FROM LAB, PT HAS POSITIVE MRSA IN NARES. CALLED DR GARG AND RECIEVED NEW ORDERS FOR TX, WILL CARRY OUT. CONTACT PRECAUTIONS IN PLACE.
[2019-05-05 17:05] VITALS: BP 128/68
--- NOTE | 2019-05-05 18:49 | NUR ---
PT STABLE AT THIS TIME WATCHING TV W3ITH SON AT BEDSIDE. NO C/O ANY DISTRESS. MORPHINE GIVEN FOR 8/10 BACK PAIN. TOLERATED ALL CARES WELL. VS WNL. IV IN WR AND LAC INTACT AND PATENT WITH NO REDNESS OR INFLAMMATION NOTED. SAFETY PRECAUTIONS IN PLACE, CALL LIGHT WITHIN REACH, WILL ENDORSE TO NIGHT NURSE.
--- NOTE | 2019-05-05 19:30 | NUR ---
RECEIVED REPORT FROM DAY SHIFT RN. PT RESTING WITH EYES CLOSED. AROUSABLE WITH VERBAL STIMULI. NO SOB NOTED ON ROOM AIR. NO C/O PAIN AT THIS TIME. SALINE LOCK TO RIGHT WRIST AND LAC. SAFETY MEASURES IN PLACE. BED IN LOWEST POSITION. SIDE RAILS UP X2. INSTRUCTED PT TO USE THE CALL LIGHT FOR ASSISTANCE. CALL LIGHT WITHIN REACH.
[2019-05-05 21:39] VITALS: BP 154/67
--- NOTE | 2019-05-05 23:16 | NUR ---
PT C/O BACK AND BLE PAIN 02/28. MORPHINE GIVEN.
--- NOTE | 2019-05-05 23:46 | NUR ---
PT RESTING WITH EYES CLOSED. NO SOB NOTED ON ROOM AIR. NO FACIAL GRIMACING. CALL LIGHT WITHIN REACH.
[2019-05-06 05:06] VITALS: BP 107/49
--- NOTE | 2019-05-06 07:00 | NUR ---
PT SLEPT MOST OF THE NIGHT. NO SOB NOTED. NO ACUTE DISTRESS. SAFETY MEASURES MAINTAINED. ALL NEEDS ATTENDED TO. CALL LIGHT WITHIN REACH. SON AT BEDSIDE.
--- NOTE | 2019-05-06 07:45 | NUR ---
RECEIVED PT FROM TROUBLE LOCATOR TEST DESK. PT IS SLEEPING THIS TIME. ASSESSED AND DOCUMENTED. DENIES PAIN THIS TIME. SAFTEY PRECAUTIONS ARE IN PLACE. PT'S SON AT BEDSIDE.
[2019-05-06 08:20] VITALS: BP 141/71
--- NOTE | 2019-05-06 11:30 | NUR ---
PT RESTING IN BED, SLEEPING. DENIES ANY PAIN. STABLE.
[2019-05-06 12:40] VITALS: BP 120/57
[2019-05-06 14:21] VITALS: BP 120/57
--- NOTE | 2019-05-06 16:00 | NUR ---
PT RESTING IN BED, AWAKE, WATCHING T.V, STABLE. DENIES ANY PAIN. SON AT BEDSIDE.
[2019-05-06 17:08] VITALS: BP 141/72
--- NOTE | 2019-05-06 19:15 | NUR ---
PT RESTING IN BED COMFORTABLY. DENIES PAIN THIS TIME. STABLE. GAVE REPORT TO CEMENT MIXER DRIVER NURSE.
--- NOTE | 2019-05-06 19:30 | NUR ---
RECEIVED REPORT FROM DAY SHIFT RN. PT RESTING WITH EYES CLOSED. AROUSABLE WITH VERBAL STIMULI. NO SOB ON ROOM AIR. NO C/O PAIN AT THIS TIME. IV TO LAC, INTACT. SAFETY MEASURES IN PLACE. BED IN LOWEST POASITION. SIDE RAILS UP X2. CALL LIGHT WITHN REACH.
--- NOTE | 2019-05-06 20:28 | NUR ---
C/O BACK PAIN 02/28. MEDICATED WITH MORPHINE.
[2019-05-06 21:22] VITALS: BP 124/70
--- NOTE | 2019-05-07 00:05 | NUR ---
PT RESTING IN BED WITH EYES CLOSED. NO SOB ON ROOM AIR. NO FACIAL GRIMACING. CALL LIGHT WITHIN REACH. WILL CONTINUE TO MONITOR.
[2019-05-07 05:29] VITALS: BP 142/59
--- NOTE | 2019-05-07 06:18 | NUR ---
PT SLEPT WELL THROUGHOUT SHIFT. NO SOB NOTED ON ROOM AIR. NO DISTRESS NOTED. WOUND TO GARY FEET CLEANED WITH WOUND CLEANSER AND COVERED RIGHT FOOT WOUND WITH ISLAND DRESSING AND LEFT FOOT WOUND COVERED WITH 4X4 AND KERLIX ROLL. SAFETY MEASURES MAINATINED. ALL NEEDS ATTENDED TO. CALL LIGHT WITHIN REACH. SON AT BEDSIDE. WILL ENDORSE CONTINUITY OF CARE TO DAY SHIFT RN.
[2019-05-07 06:32] LABS: BASOPHIL % 0.1 % (0-2); PLATELET COUNT 317 x10^3mcL (130-400); RED CELL DISTRIBUTION WIDTH 13.8 % (11.5-14.5)
[2019-05-07 06:50] LABS: CALCIUM 8.3 mg/dL (8.5-10.1); CARBON DIOXIDE 26.2 mmol/L (21-32); CREATININE SERUM 1.7 mg/dL (0.7-1.3); POTASSIUM SERUM 4.4 mmol/L (3.5-5.1)
--- NOTE | 2019-05-07 07:20 | NUR ---
PT IS AAOX4. RESP EVEN, SHALLOW, UNLABORED. LUNG SOUNDS DIMINISHED BILATERAL UPPER AND LOWER LOBES. ON R/A. NO COUGH OR SOB NOTED. TELE [address] READING NSR. PT DENIES CHEST PAIN, PRESSURE, AND PALPITATIONS. ABDOMEN SOFT, ROUND, NONTENDER. BOWEL SOUNDS ACTIVE X4 QUADS. PT DENIES N/V/D AND CONSTIPATION. PT HAS BLE ERYTHEMA AND DRYNESS. PT HAS R POSTERIOR LOWER LEG SCAB, WHITEWASHER. R ANTERIOR LOWER LEG SCAB, WHITEWASHER. PT HAS R PLANTAR LATERAL FOOT SKIN TEAR COVERED WITH CDI DRESSING. PT HAS L PLANTAR FOOT SKIN TEAR COVERED WITH CDI DRESSING. PT HAS BLE 2+ PITTING EDEMA. IV NS TO LAC, SITE WNL. NO S/S OF INFECTION NOTED. BED IN LOW POSTION. FALL PROTOCOL IN PLACE. CALL LIGHT WITHIN REACH.
--- NOTE | 2019-05-07 08:52 | NUR ---
PT REFUSED P/T TRAINING. THERAPIST STATED HE WILL TRY AGAIN THIS AFTERNOON.
[2019-05-07 08:58] VITALS: BP 141/84
--- NOTE | 2019-05-07 09:50 | NUR ---
DUE MEDS GIVEN AND TOLERATED WELL. B/P 141/84, HR 81. PT DENIES PAIN, AND DISCOMFORT. PT ASSISTED WITH APPLYING HIBICLENS LOTION TOPICALLY, GOWN CHANGE AND BEDDING CHANGE. BED IN LOWEST POSTION. CALL LIGHT WITHIN REACH.
--- NOTE | 2019-05-07 11:04 | NUR ---
CALLED AND SPOKE TO (OILFIELD PLANT AND FIELD OPERATOR) AND VERIFIED WITH HIM, HIS ORDER OF TRANSFER TO [facility]. NEW ORDER RECEIVED TO COLLETTE PT TO HIGHER LEVEL OF CARE FOR CORONARY ANGIOGRAM D/T PT IS TOO HIGH RISK FOR THE PROCEDURE.
--- NOTE | 2019-05-07 11:51 | NUR ---
BLOOD SUGAR 282, 6 UNITS INSULIN GIVEN. PT INFORMED DR. CASEY WOULD LIKE PT TRANSFERRED TO A HIGHER LEVEL OF CARE FOR ANGIOGRAM. PT VERBALIZED UNDERSTANDING AND AGREED WITH POC. CALL LIGHT WITHIN REACH. PT DENIES PAIN.
[2019-05-07 12:45] VITALS: BP 123/66
--- NOTE | 2019-05-07 12:56 | NUR ---
PT IS SITTING UP AT BEDSIDE EATING LUNCH. RESP EVEN AND UNLABORED. NO DISTRESS NOTED. DENIES PAIN. CALL LIGHT WITHIN REACH.
--- NOTE | 2019-05-07 14:22 | NUR ---
PT RECEIVING ECHO AT THIS TIME.
--- NOTE | 2019-05-07 14:30 | NUR ---
DR. ERWIN SPOKE WITH PT AND INFORMED HIM HE WILL TRANSPORTING TO A HIGHER LEVEL OF CARE. LOUISE CONTRERAS HAS BEEN CONTACTED AND WILL CONTACT [facility] CHARGE NURSE ONCE A BED IS AVAILABLE. PT AGREED WITH POC.
--- NOTE | 2019-05-07 16:40 | NUR ---
BLOOD SUGAR 282, 6 UNITS INSULIN GIVEN. DUE MEDS GIVEN AND TOLERATED WELL. PT DENIES PAIN AND DISCOMFORT. NO DISTRESS NOTED. RECEIVED ORDER FROM DR. GARG, WOUND CONSULT FOR R AND L PLANTAR FOOT TEARS. WOUND CARE: R AND L PLANTAR FOOT TEARS, CLEASE WITH NS, PAT DRY, APPLY 4X4 GAUZE AND WRAP WITH KERLIX. ORDER NOTED AND CARRIED OUT. CLEANSED BLE FEET, PATTED DRY, APPLIED 4X4 GAUZE TO SKIN TEARS AND COVERED WITH KERLIX. PT TOLERATED PROCEDURE WELL. CALL LIGHT WITHIN REACH. BED IN LOW POSITION. SON AT BEDSIDE VISITING.
[2019-05-07 16:45] VITALS: BP 146/72
--- NOTE | 2019-05-07 18:18 | NUR ---
PT IS AAOX4. RESP EVEN, SHALLOW AND UNLABORED. NO DISTRESS NOTED. PT DENIES PAIN. IV CATH TO LAC N/S LOCKED, SITE WNL. NO S/S OF INFECTION AND INFILTRATION NOTED. TELE [address] READING NSR. SON AT BEDSIDE VISITING. CONTACT PRECAUTIONS MAINTAINED THROUGH OUT SHIFT. CALL LIGHT WITHIN REACH. FALL PROTOCOL MAINTAINED.
[2019-05-07 20:00] VITALS: BP 137/71
--- NOTE | 2019-05-07 20:00 | NUR ---
PATIENT RECEIVED IN BED AWAKE,ALERT AND ORIENTED X4, SPEECH CLEAR DENIED HEADACHE NOR DIZZINESS. BREATHING EVEN AND UNLABORED BC CLEAR DIMINISHED BASES, DENIED SOB, ON ROOM AIR SAT 97-98% . DENIED CHEST PAINS, HR=76BPM, TELE#9 NSR. HEPLOCK TO LAC PATENT AND INTACT TAPE SECURED SITE CLEAR. PATIENT WITH POSITICE MRSA, CONTACT PRECAUTIONS OBSERVED. AMBULATORY WITH SLOW STEASDY GAIT. PATIENT WITH BLE ERYTHEMA. DRESSING TO BILAT FOOT CDI. MILD BEARABLE PAIN TO BILAT FOOT, RATED AT 3/10 THIS TIME INFORMED ABOUT PAIN MANAGEMENT. SAFETY/FALL PRECAUTIONS MAINTAINED. INFORMED ABOUT POC THIS SHIFT. WILL CONTINUE TO MONITOR.
--- NOTE | 2019-05-07 21:39 | NUR ---
SCHEDULED MEDS ADMINISTERED, INFORMED PATIENT PRIOR THE ACTIONS AND PURPOSES OF EACH MEDDS. PATIENT ALSO COMPLAIND OF BLE PAIN RATE AT 5/20 MEDICATED PRN, MADE COMFORTABLE IN BED. WILL MONITOR EFFECTIVENESS.
--- NOTE | 2019-05-07 22:27 | NUR ---
PATIENT CHECKED, STATED PAIN IS LESS RATED AT 2/10. COMFORTABLE.
--- NOTE | 2019-05-07 23:34 | NUR ---
PATIENT RESTING COMFORTABLY THIS TIME, EASILY AWAKEN WHEN NAME CALLED ,OFFERED NO COMPLAINTS.CONTACT ISOLATION OBSERVED AND MAINTAINED. SON AT BEDSIDE, CN AWARE.SAFETY PRECAUTIONS MAINTAINED. WILL CONTINUE TO MONITOR.
--- NOTE | 2019-05-08 02:00 | NUR ---
PATIENT RESTING COMFORTABLY THIS TIME, NO DISTRESS. WILL CONTINUE TO MONITOR.
[2019-05-08 05:57] VITALS: BP 131/72
--- NOTE | 2019-05-08 06:08 | NUR ---
CN RECEIVED A CALL FROM [facility]- PATIENT ACCEPTED WITH A ROOM #8 BED2 ,ACCEPTING XANDER WELCH, BED AVAILABLE AFTER 0730AM. WILL INFORM RESIDENT.
--- NOTE | 2019-05-08 06:22 | NUR ---
PATIENT HAD A RESTFUL AND QUIET NIGHT, SLEPT OFF AND ON STATED. NO DISTRESS ENCOUNTERED. AMBULATORY TO THE BATHROOM FOR HIS NECESSITIES. HEPLOCK TO LEFT AC PATENT AND INTACT FLUSHED WELL, CAP LOCK APPLIED. CONTACT ISOLATION OBSERVED AND MAINTAINED. PATIENT MADE AWARE THIS AM ABOUT TRANSFER TO [facility] AND BED AVAILABILITY. SAFETY/FALL PREC. MAINTAINED. WILL ENDORSE CARE TO INCOMING NURSE.
--- NOTE | 2019-05-08 06:30 | NUR ---
SUSHANT FROM [facility] CALLED AT THIS TIME AND INFOMRED STAFF THAT BED AVAILABLE FOR PATIENT AFTER 0730 AM,ACCEPTING MD SUJIT ORTIZETRY,UNIT [address] ROOM 8 BED 2.CALL [phone] EXTENSION [phone] FOR REPORT,INFORMED PRIMARY NURSE OF INFO FROM [facility]
--- NOTE | 2019-05-08 07:09 | NUR ---
REPORT GIVEN TO CARIN HUFFMAN-RN ACCEPTING NURSE AT [facility] AT [phone] [phone].
--- NOTE | 2019-05-08 07:36 | NUR ---
A+OX4, NO RESPRIATORY DISTRESS NOTED, TELE 9, DOPPLER PEDAL PULSES, +2 EDEMA BLE, LUNG SOUNDS DIMINISHED, TOLERATING RA, BOWEL SOUNDS ACTIVE, VOIDING FREELY, GENERALIZED WEAKNESS, AMBULATORY, BLE ERYTHEMA DRY SKIN, RT TOE SKIN TEAR, GARY FOOT PLANTAR ASPECT CLOSED WOUND, RLE ABRASION AND SCAB, GARY FOOT DRESSING CDI, IV IN LAC SALINE LOCKED, SITE WNL.
--- NOTE | 2019-05-08 07:43 | NUR ---
CALLED [facility] AND SPOKE TO DENAE ABOUT TRANSFER PICK AND GAVE ETA AT 1000 AM, RELAYED TO ASSIGNED NURSE SHASHANK-JAMIR.PATIENT GOING TO [facility] [address], ROOM 8 BED 2.ALS TRANSFER.
--- NOTE | 2019-05-08 07:45 | NUR ---
PER MILLY RN, PT PT TO BE TRANSFERRED TO [place] AT 1000.
--- NOTE | 2019-05-08 07:46 | NUR ---
BEDSIDE REPORT AND INTRODUCTION PERFORMED WITH INCOMING NURSE BLANKA.
--- NOTE | 2019-05-08 07:50 | NUR ---
PT NOTIFIED THAT HE WILL BE TRANSFERRED TO [facility] AND STATES HE WILL CALL HIS DAUGHTER AND HIS SON TO INFORM THEM.
[2019-05-08 09:14] LABS: BASOPHIL % 0.3 % (0-2); PLATELET COUNT 381 x10^3mcL (130-400); RED CELL DISTRIBUTION WIDTH 13.6 % (11.5-14.5)
[2019-05-08 09:20] LABS: CALCIUM 8.5 mg/dL (8.5-10.1); CARBON DIOXIDE 25.1 mmol/L (21-32); CREATININE SERUM 1.5 mg/dL (0.7-1.3); POTASSIUM SERUM 4.2 mmol/L (3.5-5.1)
--- NOTE | 2019-05-08 09:23 | NUR ---
PT RESTING IN BED, NO RESPRIATORY DISTRESS NOTED, DENIES PAIN. ALL PT BELONGINGS PLACED IN PT BELONGINGS BAGS. IV IN LAC SALINE LOCKED, SITE WNL. PT STATES HE IS READY FOR TRANSFER. CALL LIGHT WITHIN REACH.
[2019-05-08 10:13] VITALS: BP 155/68
[2019-05-08 10:15] VITALS: BP 155/65
[2019-05-08 10:18] VITALS: BP 155/65
--- NOTE | 2019-05-08 11:39 | NUR ---
[facility] HERE TO TRANSFER PT BUT DID NOT BRING [employer] SUPPLIES. [facility] STATES THEY WILL RETURN WITH [employer]. PT RESTING IN BED, NO RESPIRATORY DISTRESS NOTED, DENIES PAIN, CALL LIGHT WIHTIN REACH.
--- NOTE | 2019-05-08 11:40 | NUR ---
RECEIVED PATIENT FROM SHASHANK BOWIE AT THIS TIME. PATIENT READY FOR D/C TO [facility]. AWAITING TRANSPORT TEAM FROM [facility] [place] TO ARRIVE. PATIENT IS SITTING UP ON THE SIDE OF THE BED, ALERT ORIENTED, DENIES ANY PAIN OR DISCOMFORT. HL PATENT. TELE 9 NSR. WILL CONTINUE TO MONITOR.
--- NOTE | 2019-05-08 11:41 | NUR ---
ENDORSED CARE TO JASSI BAILON INCLUDING ALL TRANSFER INFORMATION.
--- NOTE | 2019-05-08 12:21 | NUR ---
[facility] TEAM HERE TO TRANSPORT PATIENT TO [facility]. TELE DC'D. HL IN PLACE. BELONGINGS LIST SIGNED. CONDITION APPEARS STABLE. BELONGINGS SENT WITH PATINET.
--- NOTE | 2019-05-08 15:40 | NUR ---
WOUND CARE CONSULT NOT DONE, PT. DISCHARGED.
== END 2019-05-08 13:51 | disposition short-term general hospital (02) | DRG 720 ==
LOC: ED 18:10 → DU 20:20
PROVIDERS: Emergency Medicine; ADMIT Internal Medicine
DX: A41.9 Sepsis, unspecified organism (principal); I21.4 Non-ST elevation (NSTEMI) myocardial infarction; J96.00 Acute respiratory failure, unspecified whether with hypoxia or hypercapnia; I50.41 Acute combined systolic (congestive) and diastolic (congestive) heart failure; J44.1 Chronic obstructive pulmonary disease with (acute) exacerbation; L03.115 Cellulitis of right lower limb; L03.116 Cellulitis of left lower limb; F32.9 Major depressive disorder, single episode, unspecified; I25.10 Atherosclerotic heart disease of native coronary artery without angina pectoris; E11.51 Type 2 diabetes mellitus with diabetic peripheral angiopathy without gangrene; J40 Bronchitis, not specified as acute or chronic; E66.01 Morbid (severe) obesity due to excess calories; G47.30 Sleep apnea, unspecified; I13.0 Hypertensive heart and chronic kidney disease with heart failure and stage 1 through stage 4 chronic kidney disease, or unspecified chronic kidney disease; N18.9 Chronic kidney disease, unspecified; E11.22 Type 2 diabetes mellitus with diabetic chronic kidney disease; Z79.82 Long term (current) use of aspirin; Z79.84 Long term (current) use of oral hypoglycemic drugs; Z83.3 Family history of diabetes mellitus; Z82.49 Family history of ischemic heart disease and other diseases of the circulatory system; Z68.44 Body mass index [BMI] 60.0-69.9, adult
CPT/HCPCS: 82962; 83880; 97116-GP; G0378; J0696; J1642; J1644; J1650; J1940; J2270; J2543; J2550; J3370; J7030; J7040; Q0092

== ENCOUNTER 2019-07-17 07:00 | Inpatient (IN) | payer OTHER ==
[2019-07-17] VITALS (12 sets, daily range): BP systolic 99–142; BP diastolic 46–89
[~2019-07-17] VITALS: Ht 177.8 cm; Wt 180.0 kg
--- NOTE | 2019-07-17 07:09 | NUR ---
PT GASPING TO BREATH, PT PLACED ON NON REBREATHER MASK, ATTEMPTING IV PLACEMENT, RSI MEDIATIONS AT BEDSIDE. RT PAGED. DR CARBAJAL AT BEDSIDE, EKG IN PROGRESS.
--- NOTE | 2019-07-17 07:09 | NUR ---
DR CARBAJAL AT BEDSIDE FOR MD CAMPBELL.
--- NOTE | 2019-07-17 07:18 | NUR ---
PT ASSISTED TO SIT UP IN BED, RT AT BEDSIDE TO PLACE PT ON BIPAP.
--- NOTE | 2019-07-17 07:20 | NUR ---
X-RAY AT BEDSIDE.
--- NOTE | 2019-07-17 07:22 | NUR ---
MEDS ADMINISTERED BY CONCEPCION BOWIE PER DR SOLOMON AYALA.
[2019-07-17 07:58] LABS: BASOPHIL % 0.3 % (0-2)
[2019-07-17 08:00] LABS: BILIRUBIN TOTAL 0.53 mg/dL (0.20-1.00); CARBON DIOXIDE 27.5 mmol/L (21-32); CREATININE SERUM 1.9 mg/dL (0.7-1.3); POTASSIUM SERUM 5.4 mmol/L (3.5-5.1)
--- NOTE | 2019-07-17 08:00 | NUR ---
RT AT BEDSIDE 2ND ABG BLOOD DRAW AT THIS TIME
[2019-07-17 08:02] LABS: PLATELET COUNT 401 x10^3mcL (130-400); TOTAL PROTEIN, SERUM 9.7 g/dL (6.4-8.2)
[2019-07-17 08:29] LABS: UA SPECIFIC GRAVITY 1.025 (1.005-1.035); microscopic required? YES; urine erythrocyte 2+ (NEGATIVE)
[2019-07-17 08:47] LABS: AMPHETAMINE QUAL UR POSITIVE (See below)
--- NOTE | 2019-07-17 08:57 | NUR ---
REPORT GIVEN TO ARMANDO BOWIE RESUMING CARE OF PT
--- NOTE | 2019-07-17 09:15 | NUR ---
RECIEVED PATIENT FROM ED AT THIS TIME VIA CHARLIE ACCOMPANIED BY NURSE. VS UPON ADMISSION: AXILLARY TEMP 102.6 F, NIBP 132/60 (MAP 83), HR 114, RR 29 AND 02 SAT 94% ON BI-PAP 04/04 WITH FI02 50%. PATIENT IS UNRESPONSIVE TO ALL STIMULI. RIGHT PUPIL IS 4 MM AND FIXED AND LEFT PUPIL IS 4 MM AND SLUGGISH. RHONCHI LS AUSCULATED BILATERALLY. PATIENT IS GASPING AT THIS TIME WITH CHEST RISE IS EQUAL AND SYMMETRICAL. IV TO LEFT HAND AND RIGHT HAND NOTED AND BOTH SALINE LOCKED AT THIS TIME. F/C IN PLACE AND SECURED DRAINING YELLOW URINE VIA GRAVITY. DISCOLORATION AND DRY SCABS NOTED TO BLE KEY RINGER. BED TO LOWEST POSITION, SIDE RAILS UP X3, CALL LIGHT WITHIN REACH. WILL CONTINUE TO MONITOR.
--- NOTE | 2019-07-17 12:33 | NUR ---
PATIENT AGITATED AND RESTLESS, RIPPING OFF THE BI-PAP. ATIVAN 1 MG IVP GIVEN (SEE EMAR). RT CALLED AT THIS TIME. PATIENT PLACED ON A SIMPLE MASK AT 6 LPM. BILATERAL SOFT WRISTS RESTRAINTS APPLIED AT THIS TIME TO PREVENT PATIENT FROM PULLING OUT IV LINES AND/OR TUBES. WILL CONTINUE TO MONITOR.
--- NOTE | 2019-07-17 12:40 | NUR ---
RT ALISSA AT BEDSIDE AND PLACED PATIENT ON HIGH FLOW WITH 25 LPM AND 60% FI02. CURRENT SAT 95%. WILL CONTINUE TO MONITOR.
--- NOTE | 2019-07-17 12:58 | NUR ---
ECHO PENDING. PATIENT RECENTLY HAD ECHO HERE AT [facility] [place] APR 2019. SEE CHART FOR RESULTS.
--- NOTE | 2019-07-17 13:05 | NUR ---
INTUBATION NOTE: 1304: 20 MG OF ETIMODIATE IVP GIVEN 1304: 20 MG OF KEIRA IVP GIVEN 1305: INTUBATED WITH DR. MCDONOUGH SIZE 7.5 AND 25 CM LL. RADIOLOGY CALLED TO VERIFY ETT PLACEMENT. PATIENT TOLERATED PROCEDURE WELL. WILL CONTINUE TO MONITOR.
--- NOTE | 2019-07-17 13:20 | NUR ---
RIGHT NARE NGT INSERTED, NO AIR BOLUS AUSCUTATED. RADIOLOGY AT BEDSIDE TO VERIFY ETT PLACEMENT. WILL WAIT FOR RADIOLOGY REPORT TO IDENTIFY NGT PLACEMENT.
--- NOTE | 2019-07-17 14:00 | NUR ---
RADIOLOGY CALLED, ETT IN ADEQUATE POSITION BUT RIGHT NARE NGT IS COILED IN THE ESOPHAGUS. NGT REMOVED AT THIS TIME AND WILL RE-ATTEMPT SOON. WILL CONTINUE TO MONITOR.
--- NOTE | 2019-07-17 15:55 | NUR ---
#14 EAST TIMOR[place] OGT INSERTED. PLACEMENT CONFIRMED VIA AIR BOLUS OVER GASTRIC REGION. PATIENT TOLERATED WITH NO S/S OF DISTRESS. AWAITING RADIOLOGY TO CONFIRM PLACMENT VIA KUB.
--- NOTE | 2019-07-17 16:02 | NUR ---
PICTURES TOOKEN OF BLE. WOUND TO LEFT INNER KNEE AREA 1 CM X2 CM AND ANOTHER SMALL WOUND JUST BELOW IT MEASURING 1 CM X 1.5 CM. OPEN WOUND TO BOTTOM OF RIGHT FOOT MEASURING 2 CM X 0.5 CM AND ANOTHER TO THE BOTTOM OF THE LEFT FOOT MEASURING 4 CM X 0.5 CM. DISCOLORATION AND REDNESS NOTED TO BLE WITH MULTIPLE DRY SCABS AND YELLOW DRAINAGE NOTED. ALL OPEN TO AIR AT THIS TIME. TA, WOUND CARE NURSE ON UNIT AT THIS TIME, WILL MAKE HER AWARE. WILL CONTINUE TO MONITOR.
--- NOTE | 2019-07-17 16:18 | NUR ---
XRAY TECHS AT BEDSIDE FOR KUB.
--- NOTE | 2019-07-17 17:10 | NUR ---
VITAL AF 1.2 TUBE FEEDINGS STARTED AT THIS TIME AT 10 ML/HR VIA OGT. GOAL RATE IS 40 ML/HR. FWF 50 ML Q 4 HRS. WILL CONTINUE TO MONTIOR.
--- NOTE | 2019-07-17 17:30 | NUR ---
PT. ADMITTED WITH CHRONIC WOUND BLE VENOUS STASIS ULCERS, SKIN DRY AND SCALY, RECOMMEND XEROFORM DRESSING AND CHANGE 2X /WEEK. PT. WITH LOW JUAN CARLOS SCALE: CONTINUE PRESSURE ULCER PREVENTION INTERVENTIONS: -TURN AND REPOSITION PATIENT Q 2H OFFLOAD LEFT AND RIGHT HIPS -ASSESS AND MONITOR SKIN CONDITION DURING POSITION CHANGE -OFFLOAD BILATERAL HEELS BY PLACING PILLOWS UNDER CALVES AT ALL TIMES, UNLESS OTHERWISE CONTRAINDICATED -PRESSURE REDISTRIBUTION SURFACE THERAPY WITH PILLOWS/WEDGE POSITIONER -KEEP SKIN CLEAN AND DRY AT ALL TIMES.
--- NOTE | 2019-07-17 18:46 | NUR ---
XEROFORM DRESSING SECURED IN PLACE WITH KERLIX WRAP TO BLE. PATIENT TOLERATED WELL. WILL CONTINUE TO MONITOR.
--- NOTE | 2019-07-17 19:40 | NUR ---
REC'D REPORT FROM TUTU BOWIE TO ASSUME CARE. PT INTUBATED AND SEDATED ON PROPOFOL 20 MCG/KG/MIN WITH RSS 4. ABLE TO FOLLOW SIMPLE COMMANDS. PERRLA NOTED, 3MM SLUGGISH GARY. 7.5 ETT, 25 CM @ LL SECURED. NO JVD NOTED. TRACHEA MIDLINE. OGT IN PLACE. ETT TO VENT: AC MODE TV 600, RATE 24, PEEP 5, FIO2 60%. CHEST RISE EQUAL AND SYMMETRICAL. LUNG SOUNDS COARSE CRACKLES/RHONCHI GARY. CROP SETTING OUT MACHINE OPERATOR IN PLACE SHOWING NSR WITH HR 83, BP 100/58 MAP 72. CHEST WALL STABLE. HX: CABG X3 VESSELS 1 MONTH AGO. PULSES PALPABLE AND WEAK X4 EXTREMITIES. CAP REFILL 3 SECS. GEN EDEMA NOTED IV TO L HAND AND R WRIST INTACT AND PATENT. IVF D5 1/2 NS INFUSING @ 50ML/HR. GEN WEAKNESS NOTED. TURNED AND REPOSITIONED Q2H FOR PRESSURE RELIEF. BUE SOFT WRIST RESTRAINTS IN PLACE FOR PT SAFETY. VITAL AF INFUSING @ 10 ML/HR, FWF 50ML Q4H. GRV=0. ABD OBESE AND HARD TO TOUCH. BOWEL SOUNDS ACTIVE. NO BM NOTED. F/C INTACT AND DRAINING VIA GRAVITY YELLOW URINE. SCROTAL EDEMA NOTED. NO PENILE DISCHARGE OR BLEEDING NOTED. HARD AND THICKENED SKIN NOTED TO BLE AND ABD AREA. OPEN SORE AND WOUNDS NOTED TO BLE. BLE WEEPING. NO VISITORS AT THIS TIME. ALL NEEDS MET AT THIS TIME. WILL CONTINUE TO MONITOR.
--- NOTE | 2019-07-17 21:00 | NUR ---
GRV=0, TF INCREASED TO 20ML/HR.
--- NOTE | 2019-07-17 21:14 | NUR ---
PT TRANSFERRED TO BARIATRIC BED WITH TOTAL ASSIST OF 2 RTS AND 3 RNS. PT TRANSFERRED SAFELY WITH SLIDING BOARD. PT TOLERATED WELL.
[2019-07-18] VITALS (15 sets, daily range): BP systolic 93–113; BP diastolic 45–83
--- NOTE | 2019-07-18 01:00 | NUR ---
GRV=5, TF INCREASED TO 30ML/HR.
--- NOTE | 2019-07-18 01:30 | NUR ---
MID CHEST HEALED SURGICAL INCISION AND 3 SITES OF DRY SCABS NOTED, ALEXEI. NO ACTIVE BLEEDING NOTED. RIGHT LEG REDNESS NOTED. RIGHT LOWER ABD AREA REDNESS NOTED. PHOTOS TAKEN.
--- NOTE | 2019-07-18 04:30 | NUR ---
ADRI PETIT AT BEDSIDE TITRATED FIO2 TO 40%.
--- NOTE | 2019-07-18 05:00 | NUR ---
GRV=10, TF INCREASED TO 40ML/HR.
[2019-07-18 06:42] LABS: BASOPHIL % 0.2 % (0-2); PLATELET COUNT 302 x10^3mcL (130-400)
[2019-07-18 07:42] LABS: rbc morphology (normal/abnorm) ABNORMAL (NORMAL)
--- NOTE | 2019-07-18 07:45 | NUR ---
RC'D PT INTUBATED AND SEDATED ON PROP 25MCG/KG/MIN. PT RESPONDS TO PAINFUL STIMULI. PUPILS 4MM AND SLUGGISH BILAT. NO FACIAL DROOP NOTED. OGT INTACT AND SECURED. 7.5 ETT INTACT AND SECURED, 25CM LL. EENT FREE OF DRAINAGE. ETT TO VENT, AC; TV 600,, FIO2 40%, PEEP5, RATE 24. RESP E/U. LUNGS DIM TO BASES, CRACKLES NOTED. SPO2 100%, NO RESP DISTRESS. NSR ON CM, HR 74. S1S2 AUSC. NO S/S OF CP. WEAK PALP PULSES NOTED TO BUE/BLE, EDEMA NTOED TO BUE/BLE, ELEVATED. CAP REFILL <3. SKIN WARM TO TOUCH AND CONSISTENT WITH ETHNICITY. D51/2NS @50. GENERALIZED WEAKNESS. PT ON BARIATRIC BED WITH REPOSITIONING Q15MIN. EXTREMITIES ELEVATED. BUE SOFT RESTRAINTS IN PLACE, SKIN/CAP REFILL WNL. TF VITAL @40 WITH FWF50 Q4H. NO RESIDUAL NOTED. ABDOMEN DISTENDED AND OBESE. DISTANT BS. NO BM NOTED. F/C WITH ESEQUIEL URINE DRAINING TO GRAVITY, SECURED IN PLACE. WILL CONT TO VICENTA
[2019-07-18 08:19] LABS: CALCIUM 7.7 mg/dL (8.5-10.1); CARBON DIOXIDE 25.2 mmol/L (21-32); MAGNESIUM 2.2 mg/dL (1.8-2.4); PHOSPHOROUS 4.7 mg/dL (2.5-4.9)
--- NOTE | 2019-07-18 08:26 | NUR ---
SPOKE WITH DR CHRISTIANSEN AND REPORTED HGB 6.4, HCT 20, BUN 70, CREAT 3.0. NEW ORDER RECEIVED TO TRANSFUSE 2 UNITS PRBC AND GIVE LASIX 20MG IVP AFTER EACH UNIT.
--- NOTE | 2019-07-18 08:26 | NUR ---
SPOKE WITH DR GARG AND REPORTED HGB 6.4, HCT 20, BUN 70, CREAT 3.0. NEW ORDER RECEIVED TO TRANSFUSE 2 UNITS PRBC AND GIVE LASIX 20MG IVP AFTER EACH UNIT.
--- NOTE | 2019-07-18 08:45 | NUR ---
ORDER RECEIVED FROM DR GARG FOR BLOOD TRANSFUSION. TELEPHONED PATIENT'S DAUGHTER CHUCK FU AND OBTAINED CONSENT. CONSENT WITNESSED BY MYSELF AND CHAY BOWIE AT THIS TIME.
--- NOTE | 2019-07-18 08:52 | NUR ---
LAB PRESENT AT BEDSIDE
--- NOTE | 2019-07-18 09:14 | NUR ---
SENIOR SQL DEVELOPER PRESENT AT BEDSIDE
--- NOTE | 2019-07-18 09:37 | NUR ---
RC'D CALL FROM MICRO, PT POSITIVE MRSA NARES. PT PLACED ON CONTACT ISOLATION AT THIS TIME. WILL NOTIFY DR GARG AT THIS TIME
--- NOTE | 2019-07-18 10:09 | NUR ---
RT PRESENT AT BEDSIDE
--- NOTE | 2019-07-18 12:37 | NUR ---
DR MCDONOUGH PRESENT AT BEDSIDE DISCUSSING PT POC. UPDATED ON PTS CURRENT STATUS. ALL QUESTIONS AND CONCERNS ADDRESS.
--- NOTE | 2019-07-18 15:15 | NUR ---
BLOOD TRANSFUSION INITIATED. VS FOLLOWED; BP104/24 R20 T97.1 SPO2 100%. WILL CONT TO MONITOR CLOSELY
--- NOTE | 2019-07-18 15:42 | NUR ---
PT TOLERATING BLOOD TRANSFUSION WELL. VSS. WILL CONT TO MONITOR CLOSELY
--- NOTE | 2019-07-18 17:24 | NUR ---
BLOOD TRANSFION COMPLETE. VITALS FOLLOWED; T 97.9 SPO2 100%, BP 107/56 HR77. WILL CONT TO MONITOR
--- NOTE | 2019-07-18 17:31 | NUR ---
DR CASEY PRESENT AT BEDSIDE TO DISCUSS PT POC. UPDATED ON PTS CURRENT STATUS. ALL QUESTIONS AND CONCERNS ADDRESSED
--- NOTE | 2019-07-18 17:53 | NUR ---
NARVAEZ CARE AND ORAL CARE PROVIDED. PT ON BARIATRIC BED WITH REPOSITIONING Q15 MIN.
--- NOTE | 2019-07-18 18:30 | NUR ---
BLOOD TRANSFUSION INITIATED AT THIS TIME. VSS. WILL CONTINUE TO MONMITOR CLOSELY
--- NOTE | 2019-07-18 18:50 | NUR ---
PT TOLERATING BLOOD TRANSFUSION. AYSMPTOMATIC. VS FOLLOWED, BP 100/52 SPO2 100 HR 73 RESP 22 T 97.5. WILL ENDORSE TO PHYSICAL EDUCATION SPECIALIST RN
--- NOTE | 2019-07-18 19:25 | NUR ---
REC'D REPORT FROM SURJIT BOWIE TO ASSUME CARE. PT INTUBATED AND SEDATED ON PROPOFOL 17 MCG/KG/MIN WITH RSS 4. ABLE TO FOLLOW SIMPLE COMMANDS. PERRLA NOTED, 4MM BRISK GARY. 7.5 ETT, 25 CM @ LL SECURED. NO JVD NOTED. TRACHEA MIDLINE. OGT IN PLACE. ETT TO VENT: AC MODE TV 600, RATE 20, PEEP 5, FIO2 40%. CHEST RISE EQUAL AND SYMMETRICAL. LUNG SOUNDS COARSE CRACKLES/RHONCHI GARY. ACCOUNTING FILE CLERK IN PLACE SHOWING NSR WITH HR 73, BP 106/52 MAP 79. CHEST WALL STABLE. HX: CABG X3 VESSELS 1 MONTH AGO. PULSES PALPABLE AND WEAK X4 EXTREMITIES. CAP REFILL 3 SECS. GEN EDEMA NOTED IV TO L HAND AND R WRIST INTACT AND PATENT. IVF D5 1/2 NS INFUSING @ 10ML/HR. 1 UNIT PRBC INFUSING @ 125ML/HR. GEN WEAKNESS NOTED. TURNED AND REPOSITIONED Q2H FOR PRESSURE RELIEF. BUE SOFT WRIST RESTRAINTS IN PLACE FOR PT SAFETY. VITAL AF INFUSING @ 40 ML/HR, FWF 50ML Q4H. GRV=5ML, REPLACED. ABD OBESE AND FIRM TO TOUCH. BOWEL SOUNDS ACTIVE. NO BM NOTED. F/C INTACT AND DRAINING VIA GRAVITY ESEQUIEL COLOR URINE. SCROTAL EDEMA NOTED. NO PENILE DISCHARGE OR BLEEDING NOTED. HARD AND THICKENED SKIN NOTED TO BLE AND ABD AREA. OPEN SORE AND WOUNDS NOTED TO BLE. BLE WEEPING. NO VISITORS AT THIS TIME. ALL NEEDS MET AT THIS TIME. WILL CONTINUE TO MONITOR.
--- NOTE | 2019-07-18 21:05 | NUR ---
PRBC COMPLETE. VITAL SIGN: TEMP 97.9, BP 110/55, HR 75, RR 20, O2 SAT 100%. NO A/R NOTED. WILL CONTINUE TO MONITOR.
--- NOTE | 2019-07-18 23:45 | NUR ---
ORAL SUCTIONING PROVIDED WITH MODERATE AMT OF BLOOD NOTED X3. DR GARG CALLED AND MADE AWARE. TELEPHONE ORDER GIVEN DC HEPARIN, CHANGE DIET TO NPO EXCEPT MEDS, PLACE OGT TO INTERMITTENT SUCTION, CONSULT DR BRUCE FOR POSSIBLE GI BLEED. TELEPHONE ORDER READ BACK. ORDER NOTED AND CARRIED OUT. WILL CONTINUE TO MONITOR.
[2019-07-19] VITALS (18 sets, daily range): BP systolic 96–132; BP diastolic 45–71
--- NOTE | 2019-07-19 05:00 | NUR ---
TOTAL BED BATH PROVIDED. SMALL AMT OF STOOL NOTED. [facility] PROVIDED. ALL LINENS CHANGED. PT REPOSITIONED TO COMFORT.
[2019-07-19 05:25] LABS: CALCIUM 7.8 mg/dL (8.5-10.1); CARBON DIOXIDE 21.5 mmol/L (21-32); CREATININE SERUM 3.4 mg/dL (0.7-1.3); POTASSIUM SERUM 5.1 mmol/L (3.5-5.1)
[2019-07-19 05:29] LABS: BASOPHIL % 0.4 % (0-2); PLATELET COUNT 322 x10^3mcL (130-400); RED CELL DISTRIBUTION WIDTH 20.2 % (11.5-14.5)
--- NOTE | 2019-07-19 07:19 | NUR ---
LEFT MESSAGE WITH DR BRUCE REGARDING GI CONSULT
--- NOTE | 2019-07-19 07:35 | NUR ---
PATIENT REMAINS INTUBATED AND SEDATED WITH PROPOFOL AT 18MCG/KG/MIN. PATIENT RESPONSIVE TO VERBAL STIMULI AND GESTURES TO COMMUNICATE. PATIENT FOLLOWS SOME SIMPLE COMMANDS. ETT 7.[address] AND SECURED AT 26CM AT LIPLINE. ETT TO VENT VIA VCV/AC MODE: FIO2 40%, RATE 20, VT 600, PEEP 5. OGT IN PLACE AND SECURED TO ETT. OGT CONNECTED TO LOW INTERMITTENT SUCTION WITH GREENISH YELLOW OUTPUT NOTED. TELE # 8 READS NORMAL SINUS RHYTHMS AT THIS TIME. NARVAEZ CATH TO GRAVITY DRAINING SCANT AMOUNT OF ESEQUIEL URINE OUTPUT. SOFT WRIST RESTRAINTS IN PLACE; WILL RELEASE THE RESTRAINTS FOR ROM Q2HR/PRN. PATIENT IS ON SPECIAL WILD HORSE ROM AIR MATTRESS AND TURNED Q15 MINUTES. SIDE RAILS UP X3. BED IS AT LOWEST POSITION.
--- NOTE | 2019-07-19 09:10 | NUR ---
PROPOFOL TITRATED FROM 18MCG/KG/MIN TO 15MCG/KG/MIN PER DR. MCDONOUGH REQUESTED.
--- NOTE | 2019-07-19 09:10 | NUR ---
DR. MCDONOUGH IS AT BEDSIDE EXAMING THE PATIENT. UPDATE PROVIDED TO THE DOCTOR.
--- NOTE | 2019-07-19 09:18 | NUR ---
DR. MCDONOUGH AT BEDSIDE TO SEE AND ASSESS PT. UPDATES PROVIDED BY PRIMARY RN. STATED TO CHANGE SEDATION TO FENTANYL AND VERSED DRIPS, RESTART TF ORDERED, ORDER KUB, ADMINISTER SUPPOSITORY AND ENEMA. PT PLACED ON CPAP AT THIS TIME BY DR. MCDONOUGH HOWEVER PT NOT TOLERATING ONLY DEMONSTRATING LOW TIDAL VOLUMES. PT PLACED BACK ON FULL SUPPORT. WILL CONT TO MONITOR.
--- NOTE | 2019-07-19 10:57 | NUR ---
VERSED IS INITIATED AT 0.25MG/HR AND FENTANYL AT 0.25MCG/KG/HR ORDERED.
--- NOTE | 2019-07-19 11:45 | NUR ---
PATIENT IS RESTLESS/AGITATED; HE MOVES RIGHT HAND TOWARD TUBE/LINE AND WANTED TO PULL OUT THE ETT. FENTANYL TITRATED FROM 0.25MCG/KG/HR TO 0.5MCG/KG/HR. AND VERSED AT 0.25MG/HR UP TO 0.5MG/HR.
--- NOTE | 2019-07-19 11:58 | NUR ---
Initial Nutrition Assessment- [facility] Dx: Respiratory failure, heart failure PMHx: Asthma, Cardiac, CHF, HTN, DM, depression, CHF, Psych per ED physician documentation PSHx: Coronary bypass surgery Labs: 07/19: Na:134L, BH, BUN:75H, Cr:3.4H, Ca:7.8L, H/H:7.9/25L Meds: Ambien, Aspirin, Ativan, Coreg, D5 NS, Dextrose, Diprivan, Humulin, Lasix, [place], Pepcid, Phenergan, Plavix, Tylenol, Zosyn, Diet: NPO possible GI bleed PO Intakes: N/A due to current NPO status Ht:70in. 5'10" Wt:425#, 193.23kg BMI: 61.1kg/m2 (extreme obesity) IBW: 166#, 75kg %IBW:256% UBW: unable to obtain Age: 49 y/o male Food Allergies: no known allergies Skin: BLE open wounds Mickey:13 Edema: None GI: active bowel sounds Last BM: none noted since 07/17 Per ED physician report 07/17, pt in with c/o back pain and SOB. Per progress note 07/[address] Hook, pt looks very poor, lethargic on IV sedation. RN left message for Dr. Blum for GI consult. Per Dr. Hook: restart TF as ordered. Change sedation to Fentanyl and Versed. Per RN, pt was on suction. Problem with: N/ V/D/ C:No Problems with: Chewing/Swallowing: yes, pt was on TF now NPO due to poss GI bleed Current appetite:N/A due to current NPO status Recent wt changes: unable to obtain %wt change: N/A Vitamin/Supplement: unable to obtain Special Diet at Home: unable to obtain Physical activity: unable to obtain Education: unable to provide due to pt on vent Estimated Nutritional Needs Based on actual body weight of 193 kg. Vent in L/min: 13.1 Temperature:36.5C MAP: 76 Energy: 9745-7617 kcal/d (11-14kcal/kg for vent support/weight maintenance) Protein: 118-154gm/d (0.6-0.8gm/kg for weight maintenance) Fluid: 2123-2702mL/d (1 mL/kcal) or per MD. Nutrition Diagnosis 1. Morbid obesity related to excessive caloric intake as evidenced by BMI:61.1kg/m2 and 256% of IBW. 2. Inadequate oral intake related to possible GI bleed as evidenced by current NPO status. Intervention: 1. If GI bleed resolved, recommend resuming TF of Vital AF 1.2. 2. Propofol at 18mcg/kg/min provides an additional 550kcal. Monitor/Evaluate Goal: NPO<2-3 days, resume TF. Monitor: NPO status, Labs, GI function, Skin integrity, Weights. F/U in 2-3 days as high risk 07/21-07/22
--- NOTE | 2019-07-19 11:58 | NUR ---
1. Recommend resuming TF of Vital AF 1.[address] Hook recommendations.
--- NOTE | 2019-07-19 12:30 | NUR ---
PATIENT REMAINS RESTLESS; VERSED TITRATED FROM 0.5MG/HR TO 1MG/HR WITH AGREEMENT OF DR. MCDONOUGH.
--- NOTE | 2019-07-19 15:30 | NUR ---
TUBE FEEDING WITH VITAL AF IS INITIATED AT 10ML/HR AND FREE WATER FLUSH 50ML/Q4HR ORDERED. OGT PLACEMENT WAS VERIFIED WITH SOME AIR BOLUS BEFORE TUBE FEEDING INITIATED.
--- NOTE | 2019-07-19 18:06 | NUR ---
PATIENT WAS CLEANSED AND CHANGED; DRESSING AT BLE WERE CHANGED AFTER THE PATIENT HAD BM WITH SMALL AND LOOSE STOOL.
--- NOTE | 2019-07-19 19:11 | NUR ---
REPORT GIVEN TO ONCOMING SAHARA BOWIE.
--- NOTE | 2019-07-19 19:12 | NUR ---
RECEIVED REPORT FROM CRYSTAL BOWIE. WILL RESUME CARE.
--- NOTE | 2019-07-19 19:25 | NUR ---
RECEIVED PT INTUBATED AND SEDATED ON FENTANYL AT 0.5 MCG/KG/HR AND VERSED AT 1MG/HR. PT IS RESPONSIVE TO VERBAL STIMULI. PUPILS 3MM BRISK. 7.5 ETT AT 25 CM LL INTACT AND SECURED. OGT INTACT AND SECURED TO ETT. ON VENT VCV-AC MODE WITH SETTINGS OF VT 600, FIO2 40%, R 20, PEEP 5. BREATHING E/U. LUNG SOUNDS DIMINISHED BILAT. S1S2 AUSCULTATED WITH NO MURMURS NOTED. NO S/SX OF CHEST PAIN AT THIS TIME. CAP REFILL <3 SEC. NONPITTING GENERALIZED EDEMA NOTED. PULSES PALPABLE. ON CONTINUOUS FEEDING OF VITAL AF INCREASED FROM 10CC/HR TO 20CC/HR, GOAL 40CC/HR. NO RESIDUAL NOTED. PLACEMENT CHECKED. ABDOMEN FIRM, OBESE. BS HYPOACTIVE X 4. NO N/V. NARVAEZ CATHETER IN PLACE DRAINING VIA GRAVITY. BED IN LOW POSITION. CALL LIGHT WITHIN REACH. WILL CONTINUE TO MONITOR.
--- NOTE | 2019-07-19 19:28 | NUR ---
CALLED AT THIS TIME AND ASKED FOR UPDATES, UPDATES PROVIDED, PER DR, PATIENT WILL MOST LIKELY REQUIRE HEMODIALYSIS. PRIMARY RN SAHARA MADE AWARE.
[2019-07-20] VITALS (17 sets, daily range): BP systolic 98–137; BP diastolic 45–80
--- NOTE | 2019-07-20 04:35 | NUR ---
PT CLEANED. ALL LINENS, GOWN, AND CHUCKS CHANGED. NARVAEZ CATHETER CARE PROVIDED. 280CC OF URINE OUTPUT DURING SHIFT. ALL NEEDS MET AND ANTICIPATED.
--- NOTE | 2019-07-20 04:55 | NUR ---
MOTORCYCLE MECHANIC AT BEDSIDE FOR BLOOD DRAW.
[2019-07-20 05:48] LABS: CALCIUM 7.6 mg/dL (8.5-10.1); CARBON DIOXIDE 23.7 mmol/L (21-32); POTASSIUM SERUM 5.5 mmol/L (3.5-5.1)
[2019-07-20 05:50] LABS: CREATININE SERUM 4.2 mg/dL (0.7-1.3)
--- NOTE | 2019-07-20 06:05 | NUR ---
K+ 5.5. NEW TELEPHONE ORDER FROM CHANEL NARVAEZ 30G VIA OGT X 1. ORDER READ BACK AND CARRIED OUT.
--- NOTE | 2019-07-20 11:58 | NUR ---
DR MCDONOUGH AT BEDSIDE. ALL UPDATES GIVEN. NO NEW ORDERS AT THIS TIME.
--- NOTE | 2019-07-20 16:00 | NUR ---
RSS-1, PATIENT IS ATTEMPTING TO GET OUT OF BED, KICKING THE SIDE RAILS OF THE BED. PATIENT IS GESTURING YES THAT HE FEELS SOB. DANIEL RT CALLED AND WILL GIVE BREATHING TREATMENT. SEDATION TITRATED UP WITH VERSED DRIP AT 2 MG/HR AND FENTANYL DRIP AT 1 MCG/KG/HR. PATIENT PULLED UP IN BED WITH HOB ELEVATED AND BILATERAL SOFT WRISTS RESTRAINTS REMAIN IN PLACE AND SECURED. WILL CONTINUE TO MONITOR.
--- NOTE | 2019-07-20 19:30 | NUR ---
REC'D REPORT FROM BEE BOWIE TO ASSUME CARE. PT INTUBATED AND SEDATED ON FENT 1 MCG/KG/HR, VERSED 2 MG/HR WITH RSS 4. ABLE TO FOLLOW SIMPLE COMMANDS. PERRLA NOTED, 3MM SLUGGISH GARY. 7.5 ETT, 25 CM @ LL SECURED. NO JVD NOTED. TRACHEA MIDLINE. OGT IN PLACE. ETT TO VENT: AC MODE TV 600, RATE 24, PEEP 5, FIO2 40%. CHEST RISE EQUAL AND SYMMETRICAL. LUNG SOUNDS COARSE CRACKLES/RHONCHI GARY. BASKET ASSEMBLER IN PLACE SHOWING NSR WITH HR 73, BP 118/56 MAP 77. CHEST WALL STABLE. HX: CABG X3 VESSELS 1 MONTH AGO. PULSES PALPABLE AND WEAK X4 EXTREMITIES. CAP REFILL 3 SECS. GEN EDEMA NOTED. IV TO L HAND AND R WRIST INTACT AND PATENT. IVF D5 1/2 NS INFUSING @ 10ML/HR. GEN WEAKNESS NOTED. TURNED AND REPOSITIONED Q2H FOR PRESSURE RELIEF. BUE SOFT WRIST RESTRAINTS IN PLACE FOR PT SAFETY. VITAL AF INFUSING @ 40 ML/HR, FWF 50ML Q4H. GRV=0. ABD OBESE AND HARD TO TOUCH. BOWEL SOUNDS ACTIVE. NO BM NOTED. F/C INTACT AND DRAINING VIA GRAVITY YELLOW URINE. SCROTAL EDEMA NOTED. NO PENILE DISCHARGE OR BLEEDING NOTED. HARD AND THICKENED SKIN NOTED TO BLE AND ABD AREA. OPEN SORE AND WOUNDS NOTED TO BLE. BLE WEEPING. NO VISITORS AT THIS TIME. ALL NEEDS MET AT THIS TIME. WILL CONTINUE TO MONITOR.
--- NOTE | 2019-07-20 19:41 | NUR ---
DR STEVENS (NEPHRO) IN TO SEE PATIENT, UPDATED ON STATUS. DR STEVENS STATES PT WILL NEED DIALYSIS TMRW AND RENE CATH PLACED. DR STEVENS CALLED DAUGHTER EDEN FU AND TELEPHONE CONSENT OBTAINED OKAY FOR PT TO HAVE HEMODIALYSIS AND RENE CATH PLACED, I WITNESSED TELEPHONE CONSENT WITH DAUGHTER.
--- NOTE | 2019-07-20 19:43 | NUR ---
DR STEVENS STATES DR LAURENT HI WILL BE PLACING CALPINE CATH.
--- NOTE | 2019-07-20 22:30 | NUR ---
PT RESTLESS WITH RSS 1, VERSED TITRATED TO 4 MG/HR.
[2019-07-21] VITALS (18 sets, daily range): BP systolic 92–132; BP diastolic 45–69
--- NOTE | 2019-07-21 01:30 | NUR ---
PT WITH RSS 4, VERSED TITRATED TO 3 MG/HR.
--- NOTE | 2019-07-21 05:15 | NUR ---
TOTAL BED BATH PROVIDED, F/C CARE PROVIDED, VAP CARE PROVIDED, ALL LINENS CHANGED. PT BECAME RESTLESS WHEN TURNING SIDE TO SIDE, VERSED TITRATED TO 4 MG/HR, FENTANYL TITRATED TO 2 MCG/KG/HR.
[2019-07-21 05:52] LABS: BASOPHIL % 0.3 % (0-2); PLATELET COUNT 316 x10^3mcL (130-400)
--- NOTE | 2019-07-21 05:54 | NUR ---
PT WITH RSS 4, FENTANYL TITRATED TO 1 MCG/KG/HR, VERSED TO 2 MG/HR. PT CALM AND SLEEPING AT THIS TIME. NO S/SX OF DISTRESS NOTED.
[2019-07-21 06:03] LABS: ALKALINE PHOSPHATASE 149 U/L (46-116); ALT/SGPT 14 U/L (16-63); AST/SGOT 15 U/L (15-37); BILIRUBIN TOTAL 0.8 mg/dL (0.20-1.00); CALCIUM 7.4 mg/dL (8.5-10.1); CARBON DIOXIDE 25.1 mmol/L (21-32); CHLORIDE SERUM 104 mmol/L (98-107); GLUCOSE SERUM 108 mg/dL (74-106); SODIUM SERUM 139 mmol/L (136-145); TOTAL PROTEIN, SERUM 8.2 g/dL (6.4-8.2)
[2019-07-21 06:08] LABS: ALBUMIN 1.4 g/dL (3.4-5.0); GFR1 13 mL/min
[2019-07-21 06:10] LABS: CREATININE SERUM 4.9 mg/dL (0.7-1.3)
[2019-07-21 06:25] LABS: RED CELL DISTRIBUTION WIDTH 19.8 % (11.5-14.5)
--- NOTE | 2019-07-21 06:35 | NUR ---
REPORTED TO DR GARG K+ 5.8, BUN/CREAT 85/4.9, NO NEW ORDERS GIVEN. DR GARG STATES HAVE THEM CORRECT IT WITH DIALYSIS TODAY.
--- NOTE | 2019-07-21 07:10 | NUR ---
REPORT RECEIVED FROM REBECA BOWIE. ALL CARE ASSUMED AT THIS TIME.
--- NOTE | 2019-07-21 09:00 | NUR ---
DR. MCDONOUGH AT BEDSIDE AT THIS TIME. UPDATES PROVIDED, QUESTIONS ANSWERED. NO CHANGES IN POC AT THIS TIME. WILL CONTINUE TO MONITOR.
--- NOTE | 2019-07-21 09:43 | NUR ---
AT 0850 VENT SETTINGS WAS CHANGED FROM RR OF 20, TITRATED DOWN TO 18 AND PULMOCORT 0.5MG/2ML WAS ADDED AT THIS TIME PER DR. MCDONOUGH. WILL CONTINUE TO MONITOR.
--- NOTE | 2019-07-21 10:00 | NUR ---
DAUGHTER OF PT AT BEDSIDE AT THIS TIME.
[2019-07-21 10:30] LABS: POTASSIUM SERUM 5.8 mmol/L (3.5-5.1)
--- NOTE | 2019-07-21 10:35 | NUR ---
DAUGHTER OF PT TOOK PT'S PHONE, WALLET, AND TICKET FROM HIS CAR IMPOUND WITH HER AT THIS TIME WHEN SHE LEFT UNIT.
--- NOTE | 2019-07-21 14:20 | NUR ---
DR. LAURENT HI, DRY CELL BATTERY ASSEMBLER, BEDSIDE RN, RT AT BEDSIDE FOR RENE CATHETER PLACEMENT IN RIGHT VS LEFT INTERNAL JUGULAR VEIN. TIMEOUT COMPLETED AT THIS TIME. WILL CONTINUE TO MONITOR PT DURING PROCEDURE.
--- NOTE | 2019-07-21 14:34 | NUR ---
RIGHT IJ RENE CATHETER SUCCESSFULLY PLACED AT THIS TIME. PT TOLERATED PROCEDURE WELL. WILL ENTER ORDER FOR XRAY TO CONFIRM PLACEMENT.
--- NOTE | 2019-07-21 15:03 | NUR ---
VENT ALARMING LOW O2, 2 RT'S AT BEDSIDE CHANGING OUT VENT FOR NEW ONE. RT CURRENTLY HAND BAGGING PT, PT SATTING 98%.
--- NOTE | 2019-07-21 15:15 | NUR ---
DR. STEVENS AT BEDSIDE. UPDATES PROVIDED, QUESTIONS ANSWERED. ORDER ENTERED FOR HD TOMORROW. WILL CONTINUE TO MONITOR PT.
--- NOTE | 2019-07-21 15:58 | NUR ---
WINDING OPERATOR HAISOON AT BEDSIDE PREPPING TO DIALYZE THE PT. WILL CONTINUE TO MONITOR. VSS AT THIS TIME.
[2019-07-21 16:14] LABS: IRON 34 ug/dL (65-170); TOTAL IRON BINDING CAPACITY 108 ug/dL (250-450)
--- NOTE | 2019-07-21 18:58 | NUR ---
HEMODIALYSIS COMPLETE AT THIS TIME 2 L REMOVED. PT TOLERATED WELL.
--- NOTE | 2019-07-21 19:18 | NUR ---
REPORT GIVEN TO SHRADDHA BOWIE.
--- NOTE | 2019-07-21 19:20 | NUR ---
RECEIVED PT INTUBATED AND SEDATED ON FENTANYL GTT @ 1 MCG/KG/HR AND VERSED GTT @ 2 MG/HR. PT ATTACHED TO FULL CALL CENTER AGENT AND CONTINUOUS PULSE OXIMETRY. PT ON BARIATRIC SPECIAL BED, BED AT LOWEST SETTING, CALL LIGHT WITHIN REACH, HOB ELEVATED 30 DEGREES. BUE SOFT WRIST RESTRAINTS ON FOR PT SAFETY, SKIN/PULSE WNL. OGT INTACT AND INFUSING TUBE FEEDING. SEE NURSE SHIFT ASSESSMENT FOR MORE DETAILS.
[2019-07-22] VITALS (17 sets, daily range): BP systolic 106–135; BP diastolic 48–72
--- NOTE | 2019-07-22 04:04 | NUR ---
BLE ULCERS CLEANSED WITH SOAP AND WATER, RINSED WITH NS, APPLIED XEROFORM DRESSING, WRAPPED WITH KERLIX ROLLS PER WOUND CARE RECOMMENDATION. PT REMAINS ON SPECIAL BARIATRIC BED WITH TURN SCHEDULE, EACH EXTERMITY OFFLOADED AND REDISTRIBUTES PRESSURE. SKIN KEPT CLEAN AND DRY.
--- NOTE | 2019-07-22 04:31 | NUR ---
TOTAL BED BATH PROVIDED, F/C CARE PROVIDED, PT HAD A MODERATE LOOSE LIGHT BROWN BM NOTED, ALL LINENS CHANGED, CHUCKS AND GOWN CHANGED.
[2019-07-22 05:39] LABS: BASOPHIL % 0.4 % (0-2); PLATELET COUNT 321 x10^3mcL (130-400)
[2019-07-22 05:52] LABS: BILIRUBIN TOTAL 0.84 mg/dL (0.20-1.00); CALCIUM 7.3 mg/dL (8.5-10.1); CARBON DIOXIDE 26.7 mmol/L (21-32); TOTAL PROTEIN, SERUM 8.2 g/dL (6.4-8.2)
[2019-07-22 05:53] LABS: ALBUMIN 1.4 g/dL (3.4-5.0)
[2019-07-22 05:55] LABS: CREATININE SERUM 4.6 mg/dL (0.7-1.3)
[2019-07-22 06:26] LABS: rbc morphology (normal/abnorm) ABNORMAL (NORMAL)
--- NOTE | 2019-07-22 06:32 | NUR ---
DR. GARG MADE AWARE OF PTS BUN OF 76 AND CREATININE OF 4.6. PER DR. GARG PT WILL BE DOING DIALYSIS TODAY.
--- NOTE | 2019-07-22 07:14 | NUR ---
GAVE REPORT TO BERNA BOWIE. UPDATES PROVIDED, QUESTIONS ANSWERED. ENDORSED CARE.
--- NOTE | 2019-07-22 07:15 | NUR ---
REPORT RECEIVED FROM SHRADDHA BOWIE. ALL CARE ASSUMED AT THIS TIME.
--- NOTE | 2019-07-22 08:00 | NUR ---
LIVESTOCK EXHIBITOR FEDE SETTING UP AT BEDSIDE FOR HD.
--- NOTE | 2019-07-22 09:58 | NUR ---
PT TOLERATING HEMODIALYSIS WELL.
--- NOTE | 2019-07-22 10:49 | NUR ---
Follow-up Nutrition Assessment: Dx: respiratory failure, heart failure PMHx: asthma, cardiac, CHF, HTN, DM, depression, CHF, psych per ED physician documentation, coronary bypass surgery Labs: (07/22) Na 137, K 5.0, Glu 120, BUN 76, Cr 4.6, H/H 8.0/26. Meds: aspirin, Ativan, coreg, D5-0.45% NaCl IV soln, D50%/water, Humulin R, kayexalate, Lasix, morphine sulfate, norco, Pepcid, Phenergan, sublimaze, Tylenol, VERSED, veltassa, zosyn Diet: NPO possible GI bleed PO Intake: NPO; TF Nutrition Support: Vital AF 1.2 at 10 mL/hr (goal: 40 mL/hr) via orogastric tube, FWF 10 mL Q4H (60 mL). Weights: (07/19) 425 pounds / 193.23 kg I/Os: (07/18) 1544/200 (+1344), (07/19) 1978/250 (+1728), (07/20) 1025/1280 (-255), (07/21) 1869/525 (+1344), (07/22) 1910/2355 (-445) Skin: BLE open wounds. Per hot plate press operator notes (07/18), Pt noted with chronic wound BLE venous stasis ulcers, skin dry and scaly; will continue pressure ulcer prevention. Mickey: 13 Edema: none noted GI: active bowel sounds Last BM: 07/[address] Note (07/22): Per RN Note (07/22), Pt with BUN 76 and Cr 4.6; per Dr. Samuel, Pt will be doing dialysis today. RDN visited with Pt, Pt seen, undergoing HD, Vital 1.2 AF running at 40 mL/hr, tolerating well. RDN discussed recommendation to change TF to Nepro to start to 40 mL/hr, goal rate 60 mL/hr, RN acknowledges, will bring up in rounds today. Estimated Nutritional Needs Based on ideal body weight (75 kg); estimated needs changed from previous assessment. Vent in L/min: 10.2 Temperature: 98.1F / 36.7C Energy: 2893 (using actual wt; 193 kg) vs 7532-0983 kcal/day (PSU vs. 25-30 kcal/kg for obesity, vent support, critically ill, wound healing, dialysis) Protein: 113-150 g/day (1.5-2.0 g/kg for dialysis, wound healing) Fluid: 9512-1711 mL/day (1 mL/kcal) or per MD Nutrition Diagnosis: . 1. Morbid obesity related to excessive caloric intake as evidenced by BMI 61.6 kg/m2, 256%IBW. (Ongoing) 2. Inadequate oral intakes related to possible GI bleed as evidenced by current NPO status. (Resolved; Pt now on TF) 3. Impaired nutrient utilization as evidenced by renal dysfunction as evidenced by BUN 76 and Cr 4.6 on 07/22. (New; Pt to be dialyzed) 4. Inadequate enteral infusion related to current enteral feeding as evidenced by Pt meeting < 80% of estimated needs. (New) Intervention: 1. D/C Vital AF 1.2 2. Recommend changing enteral feeding to Nepro, starting at 40 mL/hr, increasing by 10 mL/hr Q4H as tolerated, until goal rate of 60 mL/hr is reached. At goal rate, Nepro 60 mL/hr will provide 2592 kcal, 117 gm protein to meet 100% estimated kcal and protein needs. Monitor/Evaluate: Goal: Have pt meet at least 80% of estimated needs Monitor: Nutrition support, Labs, GI function F/U in 2-3 days as high risk (07/24-)
--- NOTE | 2019-07-22 11:00 | NUR ---
PT TOLERATED DIALYSIS WELL. 3L FLUID REMOVED THIS TIME.
--- NOTE | 2019-07-22 11:45 | NUR ---
ABG RESULTS FAVORABLE; RT DECREASED FIO2 TO 30% FROM 40%. PT TOLERATING WELL.
--- NOTE | 2019-07-22 13:10 | NUR ---
1310: CPAP 07/26 ATTEMPTED AT THIS TIME WITH DANIEL PETIT. PT STARTED ABDOMINAL BREATHING AND SPO2 DECREASED TO 87%, PT APPEARED UNCOMFORTABLE WITH GRIMACING. PT PLACED BACK ON A/C VCV VT 600, FIO2 30%, RATE 18, PEEP 5. 1315: SPO2 WENT BACK UP TO 98%, PT APPEARING MORE COMFORTABLE NOW, BREATHING E/U.
--- NOTE | 2019-07-22 14:17 | NUR ---
DR. GARG AT BEDSIDE. UPDATES PROVIDED, QUESTIONS ANSWERED. OBTAINED NOTE FROM DR. GARG FOR DAUGHTER TO GIVE TO PERSONNEL WHERE THE PT'S CAR IS IMPOUNDED SO SHE CAN ACCESS HIS CAR PER HER REQUEST. NO CHANGES IN PLAN OF CARE AT THIS TIME. WILL CONTINUE TO MONITOR.
--- NOTE | 2019-07-22 15:01 | NUR ---
ATTEMPTED CPAP @1310 [id number] PT DID NOT TOLERATE. PT DESAT TO 87% AND BEGAN ABDOMINAL BREATHING AND VENT WAS ALARMING APNEIC. WILL CONTINUE TO MONITOR.
--- NOTE | 2019-07-22 15:56 | NUR ---
PT SEDATED, NO S/S DISTRESS NOTED.
--- NOTE | 2019-07-22 16:15 | NUR ---
RN CALLED DR. GARG AT THIS TIME TO ASK ABOUT CHANGING THE TUBE FEEDING TO NEPRO PER DIETARY RECOMMENDATION. HE AGREED. WILL EDIT THE NUTRITION ORDER AT THIS TIME.
--- NOTE | 2019-07-22 16:58 | NUR ---
NARVAEZ CARE PROVIDED, PT WIPED DOWN WITH CHG WIPES. NO BM AT THIS TIME.
--- NOTE | 2019-07-22 18:58 | NUR ---
VITAL SIGNS STABLE, PT DOES NOT APPEAR TO BE IN ANY DISTRESS. ETT TO VENT, VENT ON A/C VCV VT 600, RATE 18, PEEP 5, FIO2 30. PT HAS LEATHA LÓPEZ INFUSING D5 HALF NS @ 10 ML/HR, FENTANYL @ 1 MCG/KG/HR, & VERSED @ 2MG/HR. PT ON AIR TURNING [facility] BARIATRIC BED SET TO TURN Q15 MIN. RSS=4. PT OPENS EYES TO TOUCH STIMULUS. BED IN LOWEST POSITION, HOB 30 DEGREES, WHEELS LOCKED. RIGHT WRIST AND LEFT HAND PIV'S SALINE LOCKED, PATENT, SITES CDI/WNL. WILL CONTINUE TO MONITOR.
--- NOTE | 2019-07-22 19:04 | NUR ---
REPORT GIVEN TO SHRADDHA BOWIE. ALL CARE ENDORSED.
--- NOTE | 2019-07-22 19:05 | NUR ---
RECEIVED PT INTUBATED AND SEDATED ON FENTANYL GTT @ 1 MCG/KG/HR AND VERSED GTT @ 2 MG/HR. PT ATTACHED TO FULL COMMERCIAL LITIGATION ASSOCIATE AND CONTINUOUS PULSE OXIMETRY. PT ON BARIATRIC SPECIAL BED, BED AT LOWEST SETTING, CALL LIGHT WITHIN REACH, HOB ELEVATED 30 DEGREES. BUE SOFT WRIST RESTRAINTS ON FOR PT SAFETY, SKIN/PULSE WNL. OGT INTACT AND INFUSING TUBE FEEDING. SEE NURSE SHIFT ASSESSMENT FOR MORE DETAILS.
[2019-07-23] VITALS (20 sets, daily range): BP systolic 96–141; BP diastolic 37–80
--- NOTE | 2019-07-23 05:05 | NUR ---
TOTAL BED BATH PROVIDED, F/C CARE PROVIDED, ALL LINENS CHANGED, CHUCKS AND GOWN CHANGED.
--- NOTE | 2019-07-23 05:19 | NUR ---
FOUND THREE SKIN TEAR TO LEFT UPPER EXTREMITY ARM WHERE NIBP CUFF WAS PLACED. NIBP CUFF PLACED TO RIGHT UPPER EXTERMITY. VERSTEL PLACED TO SKIN TEARS, INTACT AND WRAPPED WITH KERLIX. FOUND BLACK MARKING, POSSIBLE DTI TO LEFT BUTTOCK, OPTIFOAM PLACED, CDI. ALL PICTURES TAKEN AND PLACED IN CHART.
[2019-07-23 05:24] LABS: BASOPHIL % 0.4 % (0-2); PLATELET COUNT 307 x10^3mcL (130-400)
[2019-07-23 05:39] LABS: CALCIUM 7.4 mg/dL (8.5-10.1); CARBON DIOXIDE 28.2 mmol/L (21-32); POTASSIUM SERUM 4.5 mmol/L (3.5-5.1)
[2019-07-23 05:46] LABS: RED CELL DISTRIBUTION WIDTH 20.2 % (11.5-14.5)
[2019-07-23 05:52] LABS: CREATININE SERUM 4.4 mg/dL (0.7-1.3)
--- NOTE | 2019-07-23 07:14 | NUR ---
GAVE REPORT TO JAMIR EDDY. UPDATES PROVIDED, QUESTIONS ANSWERED. ENDORSED CARE.
--- NOTE | 2019-07-23 07:30 | NUR ---
RC'D PT INTUBATED AND SEDATED ON VERSED 2MG/HR AND FENTANYL 1MCG/KG/HR. PT RESPONDS TO PAINFUL STIMULI, UNABLE TO MAKE NEEDS KNOWN. PUPILS 4MM AND SLUGGISH BILAT. NO FACIAL DROOP NOTED. 7.5 ETT INTACT AND SECURED, 26CM LL. RIGHT RENE INTACT, DRESSING CDI. OGT INTACT AND SECURED. ETT TO VENT, AC; PEEP5 , TV600, FIO2 30%, RATE 18. RESP E/U. LUNGS DIM TO BASES. SPO2 98%, NO RESP DISTRESS NOTED. NSR ON CM, HR 71. S1S2 AUSC. NO S/S OF CP. WEAK PALP PULSES TO BUE/BLE, EDEMA NOTED TO BUE/BLE. CAP REFILL <3. SKIN WARM TO TOUCH AND CONSISTENT WITH ETHNICITY. PERIPHERAL IV TO RW AND LH INTACT, PATENT, DRESSING CDI. GENERALIZED WEAKNESS. BUE SOFT RESTRAINTS IN PLACE, SKIN/CAP REFILL <3. VITAL AF @40 WITH FWF50 Q4H. NO RESIDUAL NOTED. ABDOMEN DISTENDED AND OBESE. ACTIVE BS. NO BM NOTED. F/C WITH MINIMAL ESEQUIEL URINE DRAINING TO GRAVITY, SECURED IN PLACE. PT ON BARIATRIC BED WITH REPOSITIONING Q15MIN FOR PRESSURE REDUCTION. WILL CONT TO MONITOR
--- NOTE | 2019-07-23 08:17 | NUR ---
DAUGHTER JACQUI CALLED REGARDING UPDATE ON PT. PROVIDED WITH PTS CURRENT STATUS. ALL QUESTIONS AND CONCERNS ADDRESSED. DAUGHTER TO VISIT LATER THIS AFTERNOON
--- NOTE | 2019-07-23 09:00 | NUR ---
DR BRUCE PRESENT AT BEDSIDE TO DISCUSS PT POC. UPDATED ON PTS CURRENT CONDITION. ALL QUESTIONS AND CONCERNS ADDRESSED AT THIS TIME. AWAITING NEW ORDERS AT THIS TIME.
--- NOTE | 2019-07-23 09:35 | NUR ---
DR CASEY PRESENT AT BEDSIDE TO DISCUSS PT POC. UPDATED ON PTS CURRENT CONDITION. ALL QUESTIONS AND CONCERNS ADDRESSED AT THIS TIME. NO NEW ORDERS
--- NOTE | 2019-07-23 09:54 | NUR ---
OGT ADVANCED PER DR YOUNG ORDER. TUBE FEEDING REMAINS ON HOLD AT THIS TIME. AUSC WITH AIR BOLUS FOR PLACEMENT. OGT SECURED IN PLACE. WILL ORDER KUB AT THIS TIME PER CEASAR DUNBAR
--- NOTE | 2019-07-23 09:58 | NUR ---
DR GARG PRESENT AT BEDSIDE TO DISCUSS PT POC. UPDATED ON PTS CURRENT CONDITION. ALL QUESTIONS AND CONCERNS ADDRESSED AT THIS TIME. NO NEW ORDERS AT THIS TIME
[2019-07-23 10:20] LABS: IRON 33 ug/dL (65-170); TOTAL IRON BINDING CAPACITY 130 ug/dL (250-450)
--- NOTE | 2019-07-23 10:28 | NUR ---
XRAY PRESENT AT BEDSIDE FOR KUB
--- NOTE | 2019-07-23 11:57 | NUR ---
SEDATION VACATION INITIATED AT THIS TIME PER DR MCDONOUGH ORDER. PT TRANSITIONED TO CPAP AT THIS TIME. RT PRESENT AT BEDSIDE. WILL CONT TO MONITOR
--- NOTE | 2019-07-23 12:02 | NUR ---
PT ON CPAP, RESP 27 AND PT AGITATED, GAGGING. PT UNABLE TO FOLLOW SIMPLE COMMANDS. PT TRANSITIONED BACK TO AC MODE AT THIS TIME. SEDATION CONTINUED AT VERSED 2MG/HR AND FENT 1MCG/KG/HR. VSS. RESP CURRENTLY 18 AT THIS TIME. SPO2 98%. PT RC'ING BREATHING TREATMENT. WILL CONT TO MONITOR CLOSELY
--- NOTE | 2019-07-23 15:00 | NUR ---
KUB CONFIRMED THAT OGT IN PLACE. PT ADMINISTERED OGT MEDS AND CONNECTED TO TF AT THIS TIME
--- NOTE | 2019-07-23 15:58 | NUR ---
RT PRESENT AT BEDSIDE FOR BREATHING TREATMENT
--- NOTE | 2019-07-23 16:20 | NUR ---
RC'D REPORT FROM CHARGING BOARD OPERATOR GRANT. UPDATED ON PTS CURRENT STATUS. PER REPORT PT RC'D TO STENTS: 1 OBTUSE MARGINAL & 1 DISTAL RCA THRU RIGHT GROIN ACCESS WITH ANGIO SEAL. PT CURRENTLY ON 2L O2 VIA NC, SPO2 97%. VSS. ALL QUESTIONS AND CONCERNS ADDRESSED. AWAITING ARRIVAL OF PT AT THIS TIME
--- NOTE | 2019-07-23 16:25 | NUR ---
RC'D FULL REPORT ON PT FROM 2N RN THI. UPDATED ON PTS CURRENT CONDITION PRIOR TO ARRIVAL TO CONSTRUCTION CHECKER. ALL QUESTIONS AND CONCERNS ADDRESSED. PT TO ARRIVE SHORTLY
--- NOTE | 2019-07-23 16:35 | NUR ---
RC'D PT FROM ALCOHOL LAW ENFORCEMENT AGENT VIA ICU BED WITH JAMIR BURNS PRESENT AT BEDSIDE. PT A/A/O/X4, SPEECH CLEAR AND APPROPRIATE. PT DENIES EMANUEL/DIZZINESS. PT RESPONDS TO VERBAL COMMANDS AND ABLE TO MAKE NEEDS KNOWN. PUPILS 3MM AND BRISK BILAT. NO EENT DRAINAGE NOTED. RESP E/U. LUNGS CTA. PT ON 2L VIA NC, PT DENIES SOB. SPO2 99%, NO RESP DISTRESS NOTED. SB ON CM, HR 55. PT DENIES CP. PALP PULSES TO BUE/BLE, BLE EDEMA NOTED. CAP REFILL <3. SKIN WARM TO TOUCH AND CONSISTENT WITH ETHNICITY. PT ABLE TO REPOSITION SELF. PT VERBALIZED UNDERSTANDING OF IMPORTANCE OF LAYING FLAT PER PROTOCOL FOR 6HRS. PT NPO AT THIS TIME. ABDOMEN SOFT AND NONTENDER. ACTIVE BS. PT DENIES N/V. NO BM NOTED. PT USES URINAL, DENIES BURNING. SKIN W/D. RIGHT GROIN DRESSING IN PLACE, CDI. BED IN LOW POSITION. CALL LIGHT IN REACH. WILL CONT TO MONITOR
--- NOTE | 2019-07-23 16:48 | NUR ---
CALLED PT'S PER REQUEST TO NOTIFY THAT PT IS CURRENTLY IN ICU AT THIS TIME. ALL QUESTIONS AND CONCERNS ADDRESSED. TO CALL AND CHECK UP ON HIM AT A LATER TIME
--- NOTE | 2019-07-23 18:30 | NUR ---
NARVAEZ CARE PROVIDED, PT WIPED WITH DIXIE WIPES, RENE DRESSING CHANGED. ORAL CARE PROVIDED.
--- NOTE | 2019-07-23 19:08 | NUR ---
REPORT GIVEN TO RAINER BOWIE. UPDATED ON PTS CURRENT STATUS. ALL QUESTIONS AND CONCERNS ADDRESSED
--- NOTE | 2019-07-23 19:08 | NUR ---
RECEIEVED PATIENT REPORT FROM JAMIR EDDY. QUESTIONS AND CONCERNS ADDRESSED BEDSIDE.
--- NOTE | 2019-07-23 19:10 | NUR ---
PT IS INTUBATED AND SEDATED ON VERSE AT 2 MG/HR,AND FENTANLY AT 1 MCG/KG/HR, RSS OF 4, DOES NOT FOLLOW COMMANDS, UNABLE TO MAKE NEEDS KNOWN. 7.5 ETT, 26 LL, TO VENT SETTINGS, AC MODE, RATE 18, VT 600, PEEP 5, FIO2 30%, EDEMA TO BUE/BLE/SCROTUM/PENIS. PULSES PALPABLE, SR TO COMPANY DRIVER, F/C IN PLACE DRAINING TO GRAVITY, RIJ RENE CATHETER IN PLACE. IV SITES PATENT AND FLUSHING, DRESSING TO CHEST CLEAN/DRY/INTACT. SOFT WRIST RESTRAINTS IN PLACE FOR PATIENT SAFETY, BARIATRIC BED IN PLACE, TURNED AND REPOSITIONED Q2H. WILL MONITOR CLOSELY.
--- NOTE | 2019-07-23 21:53 | NUR ---
RESPIRATIONS OVER 20M, PATIENT TACHYCARDIC, ATTEMPTING TO PULL AT ETT/OGT, AGITATED AND RESTLESS. VERSED TITRATED TO 3 MG/HR AND FENTANYL TITRATED TO 1.1 MCG/KG/HR. WILL MONITOR PATIENT CLOSELY.
[2019-07-24] VITALS (14 sets, daily range): BP systolic 105–143; BP diastolic 53–82
--- NOTE | 2019-07-24 01:21 | NUR ---
PATIENT IS RESTLESS, BREATHING OVER VENTILATOR SETTINGS, COUGHING ON THE VENTILATOR, TITRATED VERSED TO 3.5 MG/HR, WILL MONITOR CLOSELY.
--- NOTE | 2019-07-24 04:59 | NUR ---
BUILDING COMPONENTS DESIGNER AT BEDSIDE FOR MORNING LAB DRAW.
[2019-07-24 05:56] LABS: BASOPHIL % 0.6 % (0-2); PLATELET COUNT 328 x10^3mcL (130-400)
[2019-07-24 06:14] LABS: CALCIUM 7.7 mg/dL (8.5-10.1); CARBON DIOXIDE 28.2 mmol/L (21-32); POTASSIUM SERUM 4.6 mmol/L (3.5-5.1)
--- NOTE | 2019-07-24 08:57 | NUR ---
0800 PT RECIEVED SEDAQTED/INTUBATED/ TRACKING WITH EYES BUT NOT FULLOWING COMMANDS/PT PUPILS 2MM, PT AFEBRILE, VERY OBESE BUT PULSES PALBABLE ALL EXTREMITIES/PT HR SINUS, BP STABLE/AWAITING DIALYSIS, PT TOLERATING TF/30CC RESIDUAL PER TF//PT IN ZERO APPARENT DISTRESS/MW
--- NOTE | 2019-07-24 13:51 | NUR ---
1200 turned off sedation post dialysis, kept off til pt followed commands at 1245-then started weaning- pt only lasted 5 mins, we suctioned pt and tried again, pt only lASTED 5 mins//restarted sedation due to pt desaturation, increased respiratory rate and pt accessory muscle breathing//pt back to sedation and tf//mw
--- NOTE | 2019-07-24 18:14 | NUR ---
1800 pt sedated/intubated, in zero distress, still not following commands, pt urine output 450cc dark robert urine with sediment//out put today 3450 including dialysis//mw
[2019-07-25] VITALS (17 sets, daily range): BP systolic 106–137; BP diastolic 51–87
--- NOTE | 2019-07-25 07:45 | NUR ---
REPORT RECEIVED FROM HOSPITAL INTERNSHIP IONA. ALL CARES ASSUMED AT THIS TIME.
[2019-07-25 08:11] LABS: PLATELET COUNT 325 x10^3mcL (130-400)
[2019-07-25 08:24] LABS: RED CELL DISTRIBUTION WIDTH 20.6 % (11.5-14.5)
--- NOTE | 2019-07-25 08:56 | NUR ---
DR. MCDONOUGH AT BEDSIDE TO SEE AND ASSESS PT. UPDATES PROVIDED BY PRIMARY RN. PER DR. MCDONOUGH STATES TO SWITCH PT TO PRECEDEX DRIP AND WEAN OFF FENTANYL AND VERSED SEDATION. DR. MCDONOUGH STATES SHE WILL ALSO NEED TO SPEAK WITH PT'S FAMILY IN REGARDS TO NEED FOR TRACH.
[2019-07-25 09:22] LABS: CALCIUM 8.1 mg/dL (8.5-10.1); CARBON DIOXIDE 28.8 mmol/L (21-32); POTASSIUM SERUM 4.2 mmol/L (3.5-5.1)
[2019-07-25 09:27] LABS: CREATININE SERUM 4.5 mg/dL (0.7-1.3)
--- NOTE | 2019-07-25 09:40 | NUR ---
CRISTIANO RIGGS RN SETTING UP AT BEDSIDE.
[2019-07-25 11:35] LABS: BAND NEUTROPHIL 1 % (0-10); BASOPHIL 0 % (0-2); MONOCYTE 26 % (0-7); PLATELET MORPHOLOGY PLATELETS INCREASED; SEGMENTED NEUTROPHILS 67 % (37-75); rbc morphology (normal/abnorm) ABNORMAL (NORMAL)
--- NOTE | 2019-07-25 11:52 | NUR ---
Follow-up Nutrition Assessment: IC08/A VANDANA FU FU HR Dx: Respiratory failure, heart failure PMHx: asthma, cardiac, CHF, HTN, DM, depression, psych per ED physician documentation, coronary bypass surgery Labs: (07/25) BG 129H, BUN 57H, CREAT 4.5H, ALB 1.4L, HGB 7.8L Meds: Aspirin, coreg, D 50%, Humulin, lactulose, Lasix, phenegran, phoslo, Procrit Diet: OGT Nepro @ 40 ml/hr, goal 60 ml/hr, FWF 50 ml Q4H PO Intake: NPO Weights: (07/22) 190.9 kg, (07/24) 188.6 kg, (07/25) 186 kg I/Os: (07/24) 1657/400 (1257) Skin: redness to panus folds, BLE dressing, skin tear LUE Mickey: 15 Edema: severe scrotal edema, +3/4 generalized edema GI: Last BM: none RD Note (07/25): Patient is intubated and sedated and was receiving HD. Per JAMIR Obrien, pt is receiving Nepro @ 60 ml/hr and is tolerating it well. Estimated Nutritional Needs Based on ideal body weight (75 kg) Energy: 6312-9438 vs 2925 kcal/day (30-35 kcal/kg vs PSU for) Protein: 90-112 g/day (1.2-1.5 g/kg for HD) Fluid: 1L + output for HD or per MD Nutrition Diagnosis: 1. Morbid obesity related to excessive caloric intake as evidenced by BMI 61.6 kg/m2. 2. Impaired nutrient utilization related to renal dysfunction as evidence by BUN 57, CREAT 4.6 (labs trending down) 3. Increased nutrient needs related to increased metabolic demands as evidenced by patient on hemodialysis. (new) Intervention: 1. Recommend continuing Nepro @ 60 ml/hr, FWF 50 ml Q4H (or per MD). This provides 2590 kcal and 117g protein. This meets 100% calorie and protein needs of the patient. Monitor/Evaluate: Goal: Have pt meet at least 75% of estimated needs Monitor: PO intake, Labs, GI function F/U in 3-5 days as moderate risk 07/28-
--- NOTE | 2019-07-25 13:24 | NUR ---
DIALYSIS COMPLETE AT THIS TIME. PT TOLERATED WELL. 3.1 LITERS REMOVED.
--- NOTE | 2019-07-25 14:20 | NUR ---
1 UNIT OF PRBC'S CHECKED AT BEDSIDE WITH COBOL APPLICATION DEVELOPER AND PRIMARY RN. PRE ADMIN VS: T 98.2, HR 66, BP 112/59, RR 18, SPO2 91%. WILL CONTINUE TO MONITOR.
--- NOTE | 2019-07-25 15:40 | NUR ---
PT PLACED ON CPAP BY ADRI PETIT AT THIS TIME, 06/01. PT APPEARS TO BE TOLERATING CPAP WELL AT THIS TIME. WILL CONTINUE TO MONITOR.
--- NOTE | 2019-07-25 16:11 | NUR ---
PT ON CPAP AND GETTING AGITATED. PRECEDEX TITRATED TO 0.4 MCG/KG/HR. WILL CONT TO MONITOR.
--- NOTE | 2019-07-25 16:32 | NUR ---
PLACED PT BACK ON FULL SUPPORT AT THIS TIME. BERNA BOWIE AND JAMIR POLANCO, NOTIFIED OF THESE CHANGES.
--- NOTE | 2019-07-25 16:40 | NUR ---
PT STILL AGITATED, KICKING AND TRYING TO GRAB AT LINES. FENTANYL GTT @ 1 MCG/KG/HR AND PRECEDEX GTT @ 0.5 MCG/KG/HR.
--- NOTE | 2019-07-25 17:25 | NUR ---
DR. CASEY AT BEDSIDE. UPDATES PROVIDED, QUESTIONS ANSWERED. NO CHANGES IN PLAN OF CARE AT THIS TIME. WILL CONTINUE TO MONITOR.
--- NOTE | 2019-07-25 17:39 | NUR ---
PT SETTLED DOWN AT THIS TIME, NOT AGITATED.
--- NOTE | 2019-07-25 19:13 | NUR ---
REPORT GIVEN TO CYNTHIA DEVELOPMENT COACH. ALL CARES ENDORSED.
[2019-07-26] VITALS (17 sets, daily range): BP systolic 111–147; BP diastolic 56–77
--- NOTE | 2019-07-26 07:10 | NUR ---
REPORT RECEIVED FROM SOUND PRINTER IONA. ALL CARE ASSUMED AT THIS TIME. PER CYNTHIA, THE TUBE FEEDING IS PAUSED AT THIS TIME FOR POSSIBLE TRACHEOSTOMY TODAY.
--- NOTE | 2019-07-26 09:00 | NUR ---
TUBE FEEDING RESTARTED DUE TO QUESTIONABLE TRACHEOSTOMY LATE TODAY.
--- NOTE | 2019-07-26 09:20 | NUR ---
DR. MCDONOUGH AT BEDSIDE. UPDATES PROVIDED, QUESTIONS ANSWERED. PER DR. MCDONOUGH, SHE SAID TO D/C THE PRECEDEX GTT ONCE THE CURRENT BAG IS FINISHED. THE PT'S DAUGHTER OH WAS CALLED [ ] AT THIS TIME TO DISCUSS POSSIBLE TRACHEOSTOMY TODAY. SHE SAID SHE WOULD BE COMING IN TO VISIT TODAY AROUND 1230 AND WOULD LIKE TO TALK ABOUT IT IN PERSON BEFORE SIGNING THE CONSENT FOR SURGERY. PER DR. MCDONOUGH, SHE TALKED TO DR. GARG ABOUT THE PT'S POSSIBLE SURGERY AND DR. GARG SAID HE WOULD CONTACT DR. GALVAN. WILL CONTINUE TO MONITOR AND PROVIDE CARES.
--- NOTE | 2019-07-26 09:40 | NUR ---
TUBE FEEDING PAUSED AT THIS TIME PER DR. MCDONOUGH REQUEST.
--- NOTE | 2019-07-26 09:50 | NUR ---
DR. GALVAN ON UNIT TO SEE PT. CHEMICAL PRODUCTION MACHINE OPERATOR REACHED OUT VIA TELEPHONE TO DAUGHTER OH AT THIS TIME TO SEE IF SHE WOULD GIVE CONSENT OVER PHONE AND PT'S DAUGHTER STATED SHE WANTS TO COME IN PERSON TO ASK QUESTIONS AND POSSIBLY GIVE CONSENT. NO CONSENT SIGNED AT THIS TIME.
--- NOTE | 2019-07-26 09:55 | NUR ---
FENTANYL GTT INCREASED TO 2 MCG/KG/HR FROM 1 MCG/KG/HR, PRECEDEX GTT DECREASED TO 3 MCG/KG/HR, VERSED GTT REMAINS 2 MG/HR. FENTANYL GTT INCREASED D/T PT SWEATING, POSSIBLY IN PAIN. NEW RATE OK PER DR. MCDONOUGH. WILL CONTINUE TO MONITOR.
--- NOTE | 2019-07-26 12:56 | NUR ---
PT'S DAUGHTER AT BEDSIDE TO SEE PT. DR. GALVAN ALSO AT BEDSIDE TO SPEAK WITH DAUGHTER IN REGARDS TO TRACH PLACEMENT. ULTRASOUND SPECIALIST ALSO AT BEDSIDE TO SPEAK WITH PT'S DAUGHTER. PT'S DAUGHTER UNSURE IF SHE WILL LIKE TO MOVE FORWARD WITH TRACH AT THIS TIME SHE STATES SHE KNOWS THIS IS NOT WHAT HER FATHER WOULD WANT HOWEVER SHE WOULD LIKE TO GIVE HIM A CHANCE. DAUGHTER INFORMED THAT ONCE PT IS TRACHED HE WILL NEED A PEG. PT STATES SHE WOULD LIKE TO SPEAK WITH DR. MCDONOUGH SHE HAS A COUPLE MORE QUESTIONS BEFORE DECIDING. DR. MCDONOUGH PAGED AT THIS TIME.
--- NOTE | 2019-07-26 14:30 | NUR ---
VERSED TITRATED UP TO 5 MG/HR FROM 2 MG/HR FOR AGITATION. 2 MG VERSED BOLUSED OFF PUMP WITH NO EFFECT BEFORE TITRATING UP. 5 MG/HR OK PER DR. MCDONOUGH.
--- NOTE | 2019-07-26 17:00 | NUR ---
TUBE FEEDING RESTARTED AT THIS TIME.
--- NOTE | 2019-07-26 17:03 | NUR ---
FAMILY MEETING TO BE HELD WITH PT'S CHILDREN AND DR. MCDONOUGH Tuesday07/28/19 AT 0900. PRIMARY RN MADE AWARE.
--- NOTE | 2019-07-26 18:31 | NUR ---
DR. STEVENS AT BEDSIDE. UPDATES PROVIDED, QUESTIONS ANSWERED. PT TO RECEIVE HD TOMORROW AND IVF CHANGED TO 5 ML/HR TKO. NO FURTHER CHANGES TO POC. WILL CONTINUE TO MONITOR.
--- NOTE | 2019-07-26 19:30 | NUR ---
REC'D REPORT FROM PATY BOWIE TO ASSUME CARE. PT INTUBATED AND SEDATED ON FENT 2 MCG/KG/HR, VERSED 5 MG/HR WITH RSS 5. ABLE TO FOLLOW SIMPLE COMMANDS. PERRLA NOTED, 3MM SLUGGISH GARY. 7.5 ETT, 26 CM @ LL SECURED. NO JVD NOTED. TRACHEA MIDLINE. OGT IN PLACE. ETT TO VENT: AC MODE TV 600, RATE 18, PEEP 5, FIO2 30%. CHEST RISE EQUAL AND SYMMETRICAL. LUNG SOUNDS COARSE CRACKLES/RHONCHI GARY. SEWING MACHINE ADJUSTER IN PLACE SHOWING NSR WITH HR 98, BP 132/72 MAP 91. CHEST WALL STABLE. HX: CABG X3 VESSELS 1 MONTH AGO. PULSES PALPABLE AND WEAK X4 EXTREMITIES. CAP REFILL 3 SECS. GEN EDEMA NOTED. IV TO L HAND AND R WRIST INTACT AND PATENT. RIJ RENE CATH INTACT AND PATENT, RIJ PIGTAIL INFUSING IVF D5 1/2 NS @ 10ML/HR. GEN WEAKNESS NOTED. TURNED AND REPOSITIONED Q2H FOR PRESSURE RELIEF. BUE SOFT WRIST RESTRAINTS IN PLACE FOR PT SAFETY. GLUCERNA INFUSING @ 60 ML/HR, FWF 50ML Q4H. GRV=0. ABD OBESE AND HARD TO TOUCH. BOWEL SOUNDS ACTIVE. NO BM NOTED. F/C INTACT AND DRAINING VIA GRAVITY YELLOW URINE. SCROTAL EDEMA NOTED. NO PENILE DISCHARGE OR BLEEDING NOTED. HARD AND THICKENED SKIN NOTED TO BLE AND ABD AREA. OPEN SORE AND WOUNDS NOTED TO BLE. BLE WEEPING. NO VISITORS AT THIS TIME. ALL NEEDS MET AT THIS TIME. WILL CONTINUE TO MONITOR.
--- NOTE | 2019-07-26 21:00 | NUR ---
PT CONTINUES TO HIGH PRESSURE, BITE BLOCK PLACED AT THIS TIME BY RT DAO.
--- NOTE | 2019-07-26 23:45 | NUR ---
PT NOTED WITH ALOT OF SECRETIONS IN MOUTH, BITE BLOCKED TAKEN OUT AND SUCTIONED LARGE AMT OF SECRETIONS BY JENNA PETIT. PT CALM AT THIS TIME WITH RSS 4.
[2019-07-27] VITALS (16 sets, daily range): BP systolic 111–185; BP diastolic 47–93
--- NOTE | 2019-07-27 01:00 | NUR ---
RSS 5, FENTANYL TITRATED TO 1 MCG/KG/HR.
--- NOTE | 2019-07-27 01:30 | NUR ---
PT RESTLESS, ATTEMPTING TO PULL TUBE, VERSED TITRATED TO 8 MG/HR.
--- NOTE | 2019-07-27 03:27 | NUR ---
RSS 5, VERSED TITRATED TO 6 MG/HR.
--- NOTE | 2019-07-27 05:58 | NUR ---
TOTAL BED BATH PROVIDED, LINENS CHANGED, F/C CARE PROVIDED, REPOSTIONED AT THIS TIME.
--- NOTE | 2019-07-27 06:00 | NUR ---
LAST VENT CHECK NOT DONE DUE TO PT BEING CLEANED AND CHANGED
[2019-07-27 06:01] LABS: BASOPHIL % 0.5 % (0-2); PLATELET COUNT 333 x10^3mcL (130-400)
[2019-07-27 06:07] LABS: BILIRUBIN TOTAL 0.54 mg/dL (0.20-1.00); CALCIUM 7.9 mg/dL (8.5-10.1); CARBON DIOXIDE 26.5 mmol/L (21-32); POTASSIUM SERUM 4.1 mmol/L (3.5-5.1); TOTAL PROTEIN, SERUM 7.9 g/dL (6.4-8.2)
[2019-07-27 06:09] LABS: ALBUMIN 1.5 g/dL (3.4-5.0); CREATININE SERUM 4.3 mg/dL (0.7-1.3)
[2019-07-27 06:22] LABS: RED CELL DISTRIBUTION WIDTH 20.5 % (11.5-14.5)
--- NOTE | 2019-07-27 07:45 | NUR ---
RC'D PT RESTING IN BED INTUBATED AND SEDATED ON FENT 1MCG/KG/HR AND VERSED 6MG/HR. PT RESPONDS TO PAINFUL STIMULI, UNABLE TO FOLLOW SIMPLE COMMANDS. PUPILS 4MM AND SLUGGISH BILAT. NO FACIAL DROOP NOTED. 7.5 ETT INTACT AND SECURED, 26CM LL. RIGHT RENE CATH WITH PIGTAIL, INTACT DRESSING CDI. EENT FREE OF DISCHARGE. ETT TO VENT, AC; TV 600, FIO2 30%, PEEP 5, RATE 18. RESP E/U. LUNGS DIM TO BASES, CRACKLES NOTED. SPO2 955, NO RESP DISTRESS NOTED. NSR ON CM, HR 88. S1S2 AUSC. NO S/S OF CP. WEAK PALP PULSES TO BUE/BLE, EDEMA NOTED TO BUE/BLE. CAP REFILL <3. SKIN WARM TO TOUCH AND CONSISTENT WITH ETHNICITY. GENERALIZED WEAKNESS. BUE SOFT RESTRAINTS, CAP REFILL/ SKIN WNL. PT REPOSITIONED ON BARIATRIC BED Q15MIN FOR PRESSURE REDUCTION. NEPHRO @60 WITH FWF50 Q4H. NO RESIDUAL NOTED. ABDOMEN OBESE AND DISTENDED. ACTIVE BS. NO BM NOTED. F/C WITH ESEQUIEL URINE DRAINING TO GRAVITY, SECURED IN PLACE. SCROTAL EDEMA NOTED. NO PENILE DISCHARGE. ABDOMINAL FOLD ERYTHEMA. LUE SKIN TEAR, DRESSING CDI. MIDLINE CHEST SCAR WITH X3 SCABS, ALEXEI. BLE DRESSING CDI. WILL CONT TO MONITOR
[2019-07-27 08:26] LABS: rbc morphology (normal/abnorm) ABNORMAL (NORMAL)
--- NOTE | 2019-07-27 08:45 | NUR ---
TELEPHONED PATIENT'S DAUGHTER DUANE FU PER DR MCDONOUGH'S REQUEST. DR MCDONOUGH SPOKE WITH DAUGHTER AND ARRANGED APPOINTMENT FOR 829 TO DISCUSS POC. DAUGHTER IN AGREEMENT.
--- NOTE | 2019-07-27 08:49 | NUR ---
CONTINUED CONVERSATION WITH DR MCDONOUGH AND PATIENT'S DAUGHTER. DR MCDONOUGH DISCUSSED TRACHEOSTOMY PLACEMENT DISCUSSING RISKS ASSOCIATED WITH TRACHEOSTOMY. PATIENT'S DAUGHTER CHUCK IN AGREEMENT WITH TRACHOSTOMY PLACEMENT AND VERBALIZED AN UNDERSTANDING OF RISKS ASSOCIATED WITH TRACH. INCLUDING . CONSENT OBTAINED AND PLACED IN CHART. MEETING FOR 829 TOMORROW CANCELED.
--- NOTE | 2019-07-27 12:55 | NUR ---
HD NURSE PRESENT AT BEDSIDE
--- NOTE | 2019-07-27 14:24 | NUR ---
PT REMAINS ON HD AT THIS TIME. VSS, FOLLOWED: BP 157/91 HR96 R18 SP02 95%. WILL CONT TO MONITOR
--- NOTE | 2019-07-27 16:09 | NUR ---
HD COMPLETE AT THIS TIME. VSS, FOLLOWED: BP 151/72 HR 88 SPO2 98%, RESP 18. WILL CONT TO MONITOR
--- NOTE | 2019-07-27 18:17 | NUR ---
BP ELEVATED AT 184/89, DR GARG CALLED AND NOTIFIED. PER DR GARG, CONTINUE TO MONITOR AT THIS TIME. NO NEW ORDERS
--- NOTE | 2019-07-27 19:16 | NUR ---
ENDORSED PT TO [employer]ELOPMENT ADVISOR RN. UPDATED ON PTS CURRENT STATUS. ALL QUESTIONS AND CONCERNS ADDRESSED
--- NOTE | 2019-07-27 23:57 | NUR ---
Spoke to regarding high blood pressure with new orders. New orders noted and carried out. Will continue to monitor.
[2019-07-28] VITALS (18 sets, daily range): BP systolic 111–173; BP diastolic 52–86
--- NOTE | 2019-07-28 07:45 | NUR ---
RC'D PT RESTING IN BED INTUBATED AND SEDATED ON FENT 1.1 MCG/KG/HR AND VERSED 6MG/HR. PT RESPONDS TO PAINFUL STIMULI, UNABLE TO FOLLOW SIMPLE COMMANDS. PUPILS 4MM AND SLUGGISH BILAT. GAG REFLEX NOTED. SCLERA EDEMA NOTED. NO FACIAL DROOP. 7.5 ETT INTACT AND SECURED, 26 LL. RIGHT RENE WITH PIGTAIL, PATENT, DRESSING CDI. OGT INTACT AND SECURED. SCLERA EDEMA NOTED. EENT FREE OF DRAINAGE. ETT TO VENT, AC; TV 600, FIO2 30%, RATE 18, PEEP5. RESP E/U. LUNGS DIM TO BASES, CRACKLES NOTED. SPO2 95%, NO RESP DISTRESS NOTED. ST ON CM, HR 100. S1S2 AUSC. NO S/S OF CP. WEAK PALP PULSES TO BUE/BLE, EDEMA NOTED TO BUE/BLE. CAP REFILL <3. SKIN WARM TO TOUCH AND CONSISTENT WITH ETHNICITY. GENERALIZED WEAKENSS. BUE SOFT RESTRAINTS IN PLACE, CAP REFILL/ SKIN WNL. PT ON BARIATRIC BED WITH REPOSITIONING Q15 MIN FOR PRESSURE REDUCTION. TF NEPHRO @60 WITH FWF 50 Q4H. NO RESIDUAL NOTED. ABDOMEN DISTENDED AND FIRM. ACTIVE BS. NO BM NOTED. F/C WITH ESEQUIEL URINE DRAINING TO GRAVITY, SECURED IN PLACE. SCROTAL EDEMA NOTED, NO PENILE DISCHARGE. ERYTHEMA NOTED TO ABDOMINAL FOLDS. LUE DRESSING CDI. BLE DRESSING CDI. ECCYMOSIS NOTED TO BUTTOCKS. MIDLINE CHEST INCISION SCAR, ALEXEI WITH X3 OLD SCABS. PT TEMP 100.1, COOLING MEASURES IN PLACE. WILL CONT TO MONITOR
--- NOTE | 2019-07-28 12:27 | NUR ---
DR GARG PRESENT AT BEDSIDE TO DISCUSS PT POC. UPDATED ON PTS CURRENT STATUS. ALL QUESTIONS AND CONCERNS ADDRESSED.
--- NOTE | 2019-07-28 12:56 | NUR ---
POST ABG COLLECTION AND RESULTS READBACK TO DR. MCDONOUGH FIO2 WAS INCREASED TO 35%.
--- NOTE | 2019-07-28 16:08 | NUR ---
LULU DEXTER PRESENT AT BEDSIDE. UPDATED ON PTS CURRENT STATES. ALL QUESTIONS AND CONCERNS ADDRESSED. WILL CONT TO MONITOR
--- NOTE | 2019-07-28 16:16 | NUR ---
DR HI PRESENT AT BEDSIDE, UPDATED ON PT CURRENT STATUS. ALL QUESTIONS AND CONCERNS ADDRESSED
--- NOTE | 2019-07-28 19:41 | NUR ---
PT IS INTUBATED AND SEDATED. ON FENT 1.1 MCG/KG/HR AND VERSED 6MG/HR. PT RESPONDS TO TACTILE STIMULI. PERRLA, A BIT SLUGGISH ON GARY EYES. EYELID EDEMA NOTED. TELE SHOWS NSR. RENE CATH ON RJ WITH PIGTAIL. SITE CLEAN AND INTACT. NO SIGNS OF DISTRESS NOTED. LUNGS CLEAR IN ALL FEILDS BUT DIMINISHED AT BASES. VENT ON A/C MODE. VT 600, FIO2 30%, PEEP 5, RATE 18. EQUAL CHEST RISE AND FALL. PULSES PRESENT BUT WEAK. CAP REFIL < 3 SEC. BOWEL SOUNDS ARE PRESENT x4. ABD IS DISTENDED AND FIRM. OGT IN PLACE, NEPHRO AT 60ML WITH FWF 50ML @4HRS. 10CC RESIDULE, REPLACED. NARVAEZ BAG DRAINING VIA GRAVITY. NO DEPENDENT LOOP NOTED. YELLOW URINE NOTED IN BAG. SCROTUM AND PENILE EDEMA NOTED. SALINE LOCKED ON L HAND AND R WRIST, BOTH PATENT AND INTACT. MIDLINE CHEST INCISION NOTED WITH 3 DRIED SCABS. DRY SKIN ON BLE WITH DRESSING TO PROTECT THE SKIN. ERYTHEMIC SKIN NOTED ON ABD FOLDS INTRADRY IN PLACE. ON SOFT GARY WRIST RESTRAINST ON. SKIN INTACT ON SITE. BED IS AT LOWEST SETTING. CALL LIGHT WITHIN REACH. WILL CONTINUE TO MONTIOR.
--- NOTE | 2019-07-28 23:43 | NUR ---
PT IS RESTING IN BED. NO SIGN OF DISTRESS IS NOTED. ORAL CARE WAS PROVIDED. PT TOLERATED FEEDING WELL. BIATRIC BED REPOSITIONING [id number] FOR SKIN INTERGRITY. PT IS INTUBATED AND SEDATED. ON FENT 1.1 MCG/KG/HR AND VERSED 6MG/HR. PT RESPONDS TO TACTILE STIMULI. TELE SHOWS NSR. RENE CATH ON RJ WITH PIGTAIL. SITE CLEAN AND INTACT. NO SIGNS OF DISTRESS NOTED. LUNGS CLEAR IN ALL FEILDS BUT DIMINISHED AT BASES. VENT ON A/C MODE. VT 600, FIO2 30%, PEEP 5, RATE 18. EQUAL CHEST RISE AND FALL. PULSES PRESENT BUT WEAK. CAP REFIL < 3 SEC. BOWEL SOUNDS ARE PRESENT x4. ABD IS DISTENDED AND FIRM. OGT IN PLACE, NEPHRO AT 60ML WITH FWF 50ML @4HRS. NARVAEZ BAG DRAINING VIA GRAVITY. NO DEPENDENT LOOP NOTED. YELLOW URINE NOTED IN BAG. SCROTUM AND PENILE EDEMA NOTED. SALINE LOCKED ON L HAND AND R WRIST. IV ON L HAND IS SLUGGISH TO FLUSH. MIDLINE CHEST INCISION NOTED WITH 3 DRIED SCABS. DRY SKIN ON BLE WITH DRESSING TO ON SOFT GARY WRIST RESTRAINST ON. SKIN INTACT ON SITE. BED IS AT LOWEST SETTING. CALL LIGHT WITHIN REACH. WILL CONTINUE TO MONTIOR.
--- NOTE | 2019-07-28 23:45 | NUR ---
RECIEVED REPORT FROM RN. NURSING UPDATES. POC DISCUSSED. RESUMSED CARE OF PT. SEE SHIFT ASSESSMENT FOR ASSESSMENT. TITRATED VERSED FROM 6MG TO 4MG PER PT TOLERATING. TITRATED FENT FROM 1.1MCG TO 0.75 PER PT TOLERATING WELL NO S/S OF PAIN. WILL CONT TO MONITOR.
[2019-07-29] VITALS (17 sets, daily range): BP systolic 138–159; BP diastolic 62–87
--- NOTE | 2019-07-29 01:07 | NUR ---
PT RESTING CALMLY IN BED. NO ACUTE CHANGES.
--- NOTE | 2019-07-29 02:17 | NUR ---
PT W/ AGITATION. TITRATED VERSED FROM 4MG TO 6MG PER PREVIOUS DOSAGE FOR PT AGITATION.
--- NOTE | 2019-07-29 02:36 | NUR ---
PT RESTING CALMLY IN BED. NO ACUTE CHANGES.
--- NOTE | 2019-07-29 05:02 | NUR ---
PT RESTING CALMLY IN BED. LINENS CHANGED AND PT CLEANED. NO ACUTE CHANGES.
[2019-07-29 05:08] LABS: BASOPHIL % 0.6 % (0-2); PLATELET COUNT 353 x10^3mcL (130-400)
[2019-07-29 05:17] LABS: RED CELL DISTRIBUTION WIDTH 20.3 % (11.5-14.5)
[2019-07-29 05:18] LABS: BILIRUBIN TOTAL 0.5 mg/dL (0.20-1.00); CALCIUM 8.3 mg/dL (8.5-10.1); CARBON DIOXIDE 26.6 mmol/L (21-32); PHOSPHOROUS 5.4 mg/dL (2.5-4.9)
[2019-07-29 05:19] LABS: ALBUMIN 1.6 g/dL (3.4-5.0); TOTAL PROTEIN, SERUM 8.7 g/dL (6.4-8.2)
[2019-07-29 05:20] LABS: CREATININE SERUM 4.4 mg/dL (0.7-1.3)
--- NOTE | 2019-07-29 05:32 | NUR ---
PT CALM. TITRATED VERSED FROM 6MG TO 4MG PER PREVIOUS DOSAGE FOR PT
[2019-07-29 05:38] LABS: rbc morphology (normal/abnorm) ABNORMAL (NORMAL)
--- NOTE | 2019-07-29 07:19 | NUR ---
REPORT GIVEN TO JAMIR ROAJS. NURSING UPDATES. RELEAVED OF PT DUTIES.
--- NOTE | 2019-07-29 07:25 | NUR ---
PATIENT REMAINS INTUBATED AND SEDATED WITH FENTANYL AT 1MCG/KG/HR AND VERSED AT 6MG/HR. PATIENT RESPONSIVE TO TACTILE STIMULI BUT NOT FOLLOW COMMANDS, AND GARY PUPILS WITH SLUGGISH REACTION TO LIGHT (PATIENT IS RESTLESS/AGITATED WHEN VERSED TITRATED DOWN TO 4MG/HR.) ETT 7.[address] AT 26CM AT LIPLINE. ETT TO VENT VIA VCV/AC MODE: FIO2 35%, RATE 18, VT 600, AND PEEP 5. OGT IN PLACE AND SECURED TO ETT. OGT TO TUBE FEEDING WITH NEPRO AT 60ML/HR AND FREE WATER FLUSH 50ML/Q4HR. NO GASTRIC RESIDUAL NOTED AT THIS TIME. [facility] RENE CATH IN PLACE FOR HEMODIALYSIS ACCESS. OTHER IV SITES TO LEFT HAND AND RIGHT WRIST. TELE # 8 SHOWS NORMAL SINUS RHYTHMS. NARVAEZ CATH TO GRAVITY DRAINING SCANT AMOUNT OF ESEQUIEL URINE. PATIENT IS ON SPECIAL HILL ROM AIR MATTRESS. CALL LIGHT WITHIN REACH. SIDE RAILS UP X3. BED IS AT LOWEST POSITION. HEAD OF BED ELEVATED AND EXTREMITIES OFFLOADED.
--- NOTE | 2019-07-29 08:10 | NUR ---
DR. GALVAN IN TO SEE THE PATIENT.
--- NOTE | 2019-07-29 10:35 | NUR ---
DR. MCDONOUGH IS AT BEDSIDE EXAMING THE PATIENT AND UPDATED.
--- NOTE | 2019-07-29 13:55 | NUR ---
DR. GARG IS AT BEDSIDE SEEING THE PATIENT. UPDATE PROVIDED TO THE DOCTOR BY NURSES.
--- NOTE | 2019-07-29 15:05 | NUR ---
HEMODIALYSIS NURSE IS AT BEDSIDE FOR HEMODIALYSIS. LAB RESULTS AND 2 BAG OF 1000ML NS PROVIDED TO HD NURSE PER REQUESTED.
--- NOTE | 2019-07-29 17:55 | NUR ---
HEMODIALYSIS COMPLETED WITH 3500ML OF OUTPUT REPORTED BY HD NURSE.
--- NOTE | 2019-07-29 18:36 | NUR ---
PATIENT WAS GIVEN A BED BATH, LINEN AND GOWN CHANGED. PHOTOGRAPHS OF SKIN INTEGRITY TAKEN BY CHARGE NURSE THIS MORNING.
--- NOTE | 2019-07-29 19:19 | NUR ---
RECIEVED REPORT FROM JAMIR ROJAS. NURSING UPDATES POC DISCUSSED. SEE SHIFT ASSESSMENT FOR ASSESSMENT.
--- NOTE | 2019-07-29 21:59 | NUR ---
PT RESTING CALMLY IN BED NO ACUTE CHANGES.
--- NOTE | 2019-07-29 22:43 | NUR ---
Seen and examined by Dr. Noble with no new orders. Will continue to monitor.
[2019-07-30] VITALS (18 sets, daily range): BP systolic 124–174; BP diastolic 60–96
--- NOTE | 2019-07-30 | NUR ---
PT PLACED NPO FOR PROCEDURE IN THE AM.
--- NOTE | 2019-07-30 00:58 | NUR ---
PT RESTING CALMLY IN BED NO ACUTE CHANGES.
[2019-07-30 05:20] LABS: BASOPHIL % 0.7 % (0-2); PLATELET COUNT 367 x10^3mcL (130-400)
[2019-07-30 05:24] LABS: RED CELL DISTRIBUTION WIDTH 19.9 % (11.5-14.5)
--- NOTE | 2019-07-30 05:28 | NUR ---
PT CLEANED AND LINENS CHANGED. PT W/ SOFT BROWN BM. NO S/S OF BLEEDING. PT TOLERATED WELL. WILL CONT TO MONITOR.
[2019-07-30 05:41] LABS: CALCIUM 8.3 mg/dL (8.5-10.1); CARBON DIOXIDE 28.1 mmol/L (21-32); CREATININE SERUM 3.8 mg/dL (0.7-1.3); POTASSIUM SERUM 3.8 mmol/L (3.5-5.1)
--- NOTE | 2019-07-30 07:16 | NUR ---
REPORT GIVEN TO JAMIR CAM. NURSING UPDATES. POC DISCUSSED.
--- NOTE | 2019-07-30 08:21 | NUR ---
PATIENT OFF FLOOR TO OR FOR TRACH PLACEMENT WITH DR. GALVAN AT THIS TIME VIA BED ATTACHED TO ELEVATOR TECHNICIAN ACCOMPANIED BY OR TEAM.
--- NOTE | 2019-07-30 10:04 | NUR ---
PATIENT BACK TO ICU 8 FROM OR S/P TRACH PLACEMENT WITH DR. GALVAN. TRACH SHILEY 8.[address] AND SECURED CONNECTED TO VENT. VENT SEETINGS REMAIN UNCHANGED. VS UPON ARRIVAL: TEMP 98.6 F AXILLARY, NIBP 142/71, MAP 89, HR 99, RR 24, 98% ON VENT. PATIENT TOLERATED PROCEDURE WELL. DR. GALVAN SPOKE TO PATIENT'S DAUGHTER REGARDING PROCEDURE. X-RAY AT BEDSIDE TO VERIFY TRACH PLACEMENT. WILL CONTINUE TO MONITOR.
--- NOTE | 2019-07-30 10:16 | NUR ---
PATIENT STARTING TO GET RESTLESS, SEDATION RE-STARTED WITH PREVIOUS SETTINGS OF VERSED AT 6 MG/HR AND FENANTYL DRIP AT 1 MCG/KG/HR. RSS-1. WILL CONTINUE TO MONITOR.
--- NOTE | 2019-07-30 12:27 | NUR ---
Follow-up Nutrition Assessment: IC08/A VANDANA FU MR Dx: Respiratory failure, heart failure PMHx: asthma, cardiac, CHF, HTN, DM, depression, psych per ED physician documentation, coronary bypass surgery Labs: (07/30) BG 114H, BUN 48H, CREAT 3.8H, ALB 1.6L, HGB 8.2L Meds: Aspirin, coreg, D 50%, Humulin, lactulose, Lasix, phenegran, phoslo, Procrit, pulmicort Diet: OGT Nepro @ 40 ml/hr, goal 60 ml/hr, FWF 50 ml Q4H PO Intake: NPO Weights: (07/25) 186 kg, (07/26) 185 kg, (07/29) 185 kg, (07/30) 181.8 kg- fluctuations d/t HD I/Os: (07/29) 2723/475 (2248) Skin: skin tear to low buttocks, BLE cellulitis Mickey: 11 Edema: generalized edema BUE/ BLE GI: Last BM: none RD Note (07/30): Patient is s/p trach placement per progress note (07/30). Per RN Helen, pt's tube feedings are off as OGT was removed during trach placement. Dr. Blum has been consulted for possible PEG placement. Estimated Nutritional Needs Based on ideal body weight (75 kg) Energy: 3759-5555 vs 2925 kcal/day (30-35 kcal/kg vs PSU) Protein: 90-112 g/day (1.2-1.5 g/kg for HD) Fluid: 1L + output for HD or per MD Nutrition Diagnosis: 1. Morbid obesity related to excessive caloric intake as evidenced by BMI 61.6 kg/m2. (ongoing) 2. Impaired nutrient utilization related to renal dysfunction as evidence by BUN 48, CREAT 3.8 (labs trending down- ongoing) 3. Increased nutrient needs related to increased metabolic demands as evidenced by patient on hemodialysis. (ongoing) Intervention: 1. Recommend continuing Nepro @ 60 ml/hr, FWF 50 ml Q4H (or per MD) through PEG feeding once placed. This provides 2590 kcal and 117g protein. This meets 100% calorie and protein needs of the patient. Monitor/Evaluate: Goal: Have pt meet at least 75% of estimated needs Monitor: PO intake, Labs, GI function F/U in 3-5 days as moderate risk 08/02-
--- NOTE | 2019-07-30 14:47 | NUR ---
RSS-5. VERSED DRIP TITRATED DOWN TO 5 MG/HR AND FENTANYL DRIP REMAINS AT 1 MCG/KG/HR. WILL CONTINUE TO MONITOR.
--- NOTE | 2019-07-30 15:15 | NUR ---
NOTICED PATIENT TO DESATURATE ON MONITOR WITH SP02 READING 80-83% ON VENT. TRACH SITE LOOK LOOSE AT SITE, NO ACTIVE BLEEDING NOTED. RT DANIEL CALLED AND MADE AWARE PATIENT IS DESATURATING AND THERE IS NO TRACH TIE IN PLACE TO KEEP TRACK SECURED. PATIENT PLACED ON 100% FI02 BY ME UNTIL RT DANIEL ARRIVED. RT DANIEL AT BEDSIDE AND SECURED TRACH TIE, ALSO THE FI02 WAS TITRATED TO 40%. CURRENT 02 SAT IS 97% WITH NO SIGNS OF RESP DISTRESS. WILL CONTINUE TO MONITOR.
--- NOTE | 2019-07-30 15:40 | NUR ---
PATIENT WAKING UP WITH EYES WIDE OPEN BUT STILL UNABLE TO TRACK ME OR FOLLOW ANY SIMPLE COMMANDS LIKE SQUEEZING MY HANDS WHEN ASKED. RSS-1. PATIENT ATTEMPTING TO REACH UP WITH HIS LEFT ARM. VERSED DRIP TITRATED BACK UP TO 6 MG/HR WITH FENTANYL DRIP REMAINING AT 1 MCG/KG/HR. WILL CONTINUE TO MONITOR.
--- NOTE | 2019-07-30 16:58 | NUR ---
PATIENT HAD A SMALL LOOSE BROWN STOOL. PATIENT CLEANED UP AND LINENS CHANGED. NARVAEZ CARE PROVIDED. PATIENT TOLERATED WELL. WILL CONTINUE TO MONITOR.
[2019-07-31] VITALS (18 sets, daily range): BP systolic 122–167; BP diastolic 47–89
--- NOTE | 2019-07-31 07:32 | NUR ---
TITRATED FIO2 TO 40%.
--- NOTE | 2019-07-31 07:53 | NUR ---
AM ASSESSMENT DONE. PATIENT IS SEDATED ON VERSED AND FENTANYL DRIP. RSS-4. OPENS EYES TO VERBAL STIMULI AND ATTEMPTS TO TRACK. UNABLE TO FOLLOW SIMPLE COMMANDS OR MAKE NEEDS KNOWN. WITHDRAWS TO PAINFUL STIMULI. TRACH SHILEY 8.[address] AND SECURED CONNECTED TO VENT. RESPIRATIONS ARE EQUAL AND SYMMETRICAL. NO SIGNS OF RESP DISTRESS. PATIENT ON BARIATRIC BED THAT TURNS Q 15 MINUTES TO HELP PREVENT SKIN BREAKDOWN. LIMITED ACTIVE ROM NOTED TO BUE D/T BILATERAL SOFT WRISTS RESTRAINTS IN PLACE TO PREVENT PATIENT FROM PULLING OUT IV LINES/TUBES. F/C IN PLACE AND SECURED DRAINING MINIMAL ESEQUIEL URINE VIA GRAVITY. [facility] RENE CATH IN PLACE AND SECURED. LAST HEMODIALYSIS WAS 07/29/19 WITH 3.5 L OUT. D5 1/2 NS INFUSING AT 60 ML/HR. IV TO RIGHT WRIST IN PLACE AND INFUSING WELL WITH NO SIGNS OF INFILTRATION NOTED. BED TO LOWEST POSITION, SIDE RAILS UP X4, CALL LIGHT WITHIN REACH. WILL CONTINUE TO MONITOR.
--- NOTE | 2019-07-31 08:07 | NUR ---
RSS-4. VERSED DRIP TITRATED DOWN FROM 6 TO 5 MG/HR AND FENTANYL DRIP REMAINS AT 1 MCG/KG/HR. WILL CONTINUE TO MONITOR.
[2019-07-31 09:06] LABS: BASOPHIL % 0.6 % (0-2); PLATELET COUNT 383 x10^3mcL (130-400)
[2019-07-31 09:14] LABS: CALCIUM 8.1 mg/dL (8.5-10.1); CARBON DIOXIDE 27.8 mmol/L (21-32); POTASSIUM SERUM 3.9 mmol/L (3.5-5.1)
[2019-07-31 09:23] LABS: CREATININE SERUM 4.3 mg/dL (0.7-1.3); RED CELL DISTRIBUTION WIDTH 20.3 % (11.5-14.5)
--- NOTE | 2019-07-31 09:27 | NUR ---
TITRATED FIO2 TO 30%.
--- NOTE | 2019-07-31 10:09 | NUR ---
DR. GARG AT BEDSIDE TO ASSESS PATIENT. UPDATES PROVIDED AND POC DISCUSSED. DR. GARG MADE AWARE NO PO MEDS ARE BEING GIVEN AT THIS TIME D/T NO PO ACCESS. DR. GARG WILL CONSULT DR. BRUCE REGARDING PEG TUBE PLACEMENT. ORDERS TO RE-SWAB MRSA NARES. DR. GARG ALSO MADE AWARE PATIENT IS UNABLE TO WEAR SCD'S AND IS NOT ON ANY CHEMICAL PROPHYLAXIS. NO ORDERS FOR ANY CHEMICAL PROPHYLAXIS AT THIS TIME D/T HEMOGLOBIN OF 7.8. WILL FOLLOW AND CONTINUE TO MONITOR.
[2019-07-31 10:30] LABS: ovalocyte/elliptocyte 1+; rbc morphology (normal/abnorm) ABNORMAL (NORMAL)
--- NOTE | 2019-07-31 10:45 | NUR ---
DR. BRUCE AT BEDSIDE TO ASSESS PATIENT. UPDATES PROVIDED AND POC DISCUSSED. DR. BRUCE WAS ABLE TO INSERT A 12F DOBHOFF TO RIGHT NARE AND WAS SECURED IN PLACE, AIR BOLUS AUSCULTATED. KUB ORDERED TO VERIFY PLACEMENT. IF DOBHOFF IS IN THE STOMACH, ORDERS GIVEN TO USE DOBHOFF AFTER REMOVING GUIDEWIRE AND RESUME TUBE FEEDINGS. PLAN FOR EGD WITH PEG TOMORROW 08/01/19. ATTEMPTED TO CALL DAUGHTER FOR CONSENT AT THIS TIME BUT NO ANSWER. ORDERS TO MAKE PATIENT NPO EXCEPT MEDS AT MIDNIGHT FOR PLANNED PROCEDURE. PATIENT TOLERATED WELL. WILL CONTINUE TO MONITOR.
--- NOTE | 2019-07-31 11:45 | NUR ---
HEMODIALYSIS DONE WITH 3 L OUT. PATIENT TOLERATED WELL. VSS. WILL CONTINUE TO MONITOR.
--- NOTE | 2019-07-31 12:21 | NUR ---
RIGHT NARE DOBHOFF IN PLACE AND VERIFIED BY KUB. GUIDEWIRE REMOVED. NEPRO TUBE FEEDINGS RE-STARTED AT 40 ML/HR WITH GOAL RATE OF 60 ML/HR. FWF 50 ML Q 4 HRS. WILL CONTINUE TO MONITOR.
--- NOTE | 2019-07-31 13:10 | NUR ---
RE-EVALUATION NOTE: PT. ADMITTED WITH MULTIPLE FISSUE TO RIGHT/ LEFT PLANTAR/LATERAL FOOT AREAS, DRY DARK BROWN, PAINT WITH BETADINE BID AND ALEXEI -BLE VENOUS STASIS ULCER IMPROVING, RESPONDING TO XEROFORM DRESSING, LLE 16X8CM SUPERFICIAL DEPTH, WOUND BED 100% GRANULATING TISSUE, WILLIAMS-WOUND SKIN DRY AND SCALY. RLE 16X9CM SUPERFICIAL DEPTH, WOUND BED 100% GRANULATING TISSUE RIGHT POSTERIOR LE 12X1CM SUPERFICIAL DEPTH, WOUND BED 100% GRANULATING TISSUE,WILLIAMS-WOUND SKIN DRY AND SCALY. NEW DEVELOPMENT: -INCONTINENT ASSOCIATED DERMATITIS TO RIGHT (2X1.5CM) AND LEFT (1.5X1.5CM) BUTTOCKS, BOTH SITES WITH SUPERFICIAL DEPTH,WOUND BED 100% GRANULATING TISSUE, WILLIAMS WOUND SKIN DENUDED. -DTI 1.5X2 CM LEFT LATERAL FOOT TO 5TH DIGIT 100% MAROON COLOR -LEFT UPPER ARM SKIN TEARS DRY AND CLEAN, LEFT HAND DRY THIN SCAB S/P IV SITE AREA DRY AND CLEAN, WILLIAMS WOUND SKIN INTACT. RECOMMENDATIONS: -APPLY Z GUARD TO R/L BUTTOCKS MAD QD AND COVER WITH 4X4 OPTIFOAM DRESSING QD AND PRN IF SOILING -SKIN PREP TO LEFT LATERAL FOOT DTI BID AND ALEXEI -VERSATEL TO LEFT ARM SKIN TEARS AND LEFT HAND SCAR -MONITOR SKIN CLOSELY FOR MEDICAL DEVICES INDUCED PRESSURE INJURY OR SKIN TEARS -CONTINUE XEROFORM TO BLE
--- NOTE | 2019-07-31 14:00 | NUR ---
DR. MCDONOUGH AT BEDSIDE TO ASSESS PATIENT. UPDATES PROVIDED AND POC DISCUSSED. DR. MCDONOUGH MADE AWARE OF NEW SPIKE IN FEVER WITH 101.7 F. ORDERS TO DECRESE SEDATION AND ATTEMPT C-PAP. VERSED DRIP TITRATED DOWN FROM 5 TO 3 MG/HR AND FENTANYL DRIP REMAINS AT 1 MCG/KG/HR. RSS-4. PATIENT PLACED ON C-PAP DY DR. MCDONOUGH 06/01, TAYLA RT AT BEDSIDE ALSO. WILL FOLLOW AND CONTINUE TO MONITOR.
--- NOTE | 2019-07-31 14:06 | NUR ---
BILATERAL EGG CRATE HEEL PROTECTORS APPLIED. WILL CONTINUE TO MONITOR.
--- NOTE | 2019-07-31 14:33 | NUR ---
RSS-4. VERSED DRIP TITRATED DOWN TO 1 MG/HR AND FENTANYL DRIP REMAINS AT 1 MCG/KG/HR. WILL CONTINUE TO MONITOR.
--- NOTE | 2019-07-31 15:10 | NUR ---
RT TAYLA PLACED PATIENT BACK ON AC MODE D/T TACHYPNEIC WITH RR 35. VENT SETTING PREVIOUS: AC MODE, FI02 30%, RATE 18, VT 600 AND PEEP 5. NO SIGNS OF RESP DISTRESS. WILL CONTINUE TO MONITOR.
--- NOTE | 2019-07-31 18:51 | NUR ---
SPOKE TO PATIENT'S DAUGHTER REGARDING PEG TUBE PLACEMENT TOMORROW WITH DR. BRUCE. PER PATIENT'S DAUGHTER THE DOCTOR HAD ALREADY EXPLAINED THE PEG TUBE PLACEMENT PROCEDURE AND SHE HAD NO MORE QUESTIONS AT THIS TIME. PATIENT'S DAUGHTER DUANE FU SIGNED THE CONSENT FOR THE EGD WITH PEG. WILL CONTINUE TO MONITOR.
--- NOTE | 2019-07-31 19:15 | NUR ---
DR. BLANCA AT BEDSIDE FOR ASSESSMENT. UPDATES PROVIDED BY NURSING.
--- NOTE | 2019-07-31 19:36 | NUR ---
TEMP 101.0 AXILLARY, TYLENOL GIVEN PER EMAR VIA NG. COOLING MEASURES INTACT.
--- NOTE | 2019-07-31 20:36 | NUR ---
TEMP RECHECKED, TEMP NOW AT 100.9, COOLING MEASURES REMAIN INTACT.
[2019-08-01] VITALS (16 sets, daily range): BP systolic 114–163; BP diastolic 51–79
--- NOTE | 2019-08-01 | NUR ---
TUBE FEEDING TITRATED OFF AT THIS TIME FOR PROCEDURE PEG IN AM.
--- NOTE | 2019-08-01 02:15 | NUR ---
AXILLARY TEMP 101.1, TYLENOL GIVEN PER EMAR, COOLING MEASURES REMAIN INTACT.
--- NOTE | 2019-08-01 04:12 | NUR ---
WOUND CARE PROVIDED PER WOUND CARE RECOMMENDATION TO BLE ULCERS CLEANSED WITH SOAP AND WATER AND RINSED WITH NS, APPLIED XEROFORM DRESSING AND WRAPPED WITH KERLIX ROLLS. Z-GUARD APLIED TO R/L GBUTTOCKS AND NEW OPTIOFOAM DRESSSING PLACED CDI. SKIN PREP APPLIED TO LEFT LATERAL FOOT AND LEFT SENIOR SALES REPRESENTATIVE. VERSATEL DRESSING REMAINS INTACT TO LUE SKIN TEARS AND LEFT HAND SCAR. TOTAL BED BATH PROVIDED, CHUCKS, GOWN, LINEN CHANGED. PT WIPED WITH CHG WIPES TOTAL BODY. NARVAEZ CARE PROVIDED.
[2019-08-01 05:00] LABS: CALCIUM 8.1 mg/dL (8.5-10.1); CARBON DIOXIDE 27.9 mmol/L (21-32); CREATININE SERUM 3.7 mg/dL (0.7-1.3); POTASSIUM SERUM 3.5 mmol/L (3.5-5.1)
--- NOTE | 2019-08-01 05:05 | NUR ---
PT HAD A MODERATE BROWN SOFT BM. PT PERIAREA CLEANED, CHUCKS AND LINEN CHANGED AT THIS TIME.
--- NOTE | 2019-08-01 05:10 | NUR ---
IV TO RIGHT WRIST 18 G PORT NOT PATENT. D/C'D WITH ANGIOCATH INTACT AND GAUZE APPLIED TO SITE. IV TO LEFT WRIST INITIATED 22G PORT PATENT, +BLOOD RETURN, NO S/S OF INFILTRATION DRESSING CDI.
[2019-08-01 05:56] LABS: BASOPHIL % 0.8 % (0-2); PLATELET COUNT 342 x10^3mcL (130-400)
[2019-08-01 06:24] LABS: RED CELL DISTRIBUTION WIDTH 20.5 % (11.5-14.5)
--- NOTE | 2019-08-01 07:15 | NUR ---
GAVE REPORT TO JAMIR EDDY. UPDATES GIVEN, QUESTIONS ANSWERED. ENDORSED CARE.
--- NOTE | 2019-08-01 07:20 | NUR ---
RC'D PT IN BED TRACH'D AND SEDATED ON FENTANYL 1MCG/KG/HR AND VERSED 1MG/HR. PT RESPONDS TO PAINFUL STIMULI, UNABLE TO FOLLOW SIMPLE COMMANDS. PUPILS 4MM AND SLUGGISH BILAT. MODERATED SCLERA EDEMA. NO FACIAL DROOP. SHILLEY 8.0 TRACH. RIGHT RENE CATH WITH PIGTAIL, PATENT, DRESSING CDI. RIGHT NARE DOBHOFF INTACT AND SECURED. BILAT PUPILS WITH YELLOW DISCHARGE. TRACH TO VENT, AC; TV600, PEEP5, PPN324%, RATE18. RESP E/U. DIM TO BASES, CRACKLES NOTED. SPO2 94%, NO RESP DISTRESS NOTED. WHITE SECRETIONS NOTED WITH SUCTIONING. NSR ON CM, HR84. S1S2 AUSC. NO S/S OF CP. WEAK PALP PULSES TO BUE/BLE, EDEMA NOTED TO BUE/BLE, ELEVATED. CAP REFILL <3. SKIN WARM TO TOUCH AND CONSISTENT WITH ETHNICITY. GENERALIZED WEAKNESS. BUE SOFT RESTRAINTS IN PLACE, CAP REFILL/SKIN WNL. PT ON BARIATRIC BED. EXTREMITIES ELEVATED. PT NPO FOR SURGERY AT THIS TIME. ABDOMEN DISTENDED AND FIRM. ACTIVE BS. NO BM NTOED. F/C WITH ESEQUIEL URINE DRAINING TO GRAVITY, SECURED IN PLACE. SCROTAL EDEMA NOTED. NO PENILE DISCHARGE NOTED. WILL CONT TO MONITOR
--- NOTE | 2019-08-01 07:20 | NUR ---
TEMP 100.0, COOLING MEASURES IN PLACE.
[2019-08-01 07:52] LABS: rbc morphology (normal/abnorm) ABNORMAL (NORMAL); tear drop cell (dacryocyte) 1+
--- NOTE | 2019-08-01 07:58 | NUR ---
REPORT GIVEN TO HANNA BOWIE FOR PEG PLACEMENT. UPDATED ON PTS CURRENT STATUS. ALL QUESTIONS AND CONCERNS ADDRESSED.
--- NOTE | 2019-08-01 08:54 | NUR ---
DR BRUCE PRESENT AT BEDSIDE FOR PEG PLACEMENT. PER DR BRUCE VERBAL ORDER, GIVE BOLUS OF VERSED 3MG AT THIS TIME AND INCREASE VERSED FROM 1MG/HR TO 3MG/HR. ORDERS COMPLETE AT THIS TIME. VSS. WILL CONT TO MONITOR
--- NOTE | 2019-08-01 09:04 | NUR ---
VERBAL ORDER TO BOLUS PT WITH VERSED 2MG, ORDER COMPLETE AT THIS TIME
--- NOTE | 2019-08-01 09:12 | NUR ---
PEG PLACEMENT COMPLETE AT THIS TIME. VITALS FOLLOWED; BP140/65 HR94 RESP20 SPO2 96%. WILL CONT TO MONITOR.
--- NOTE | 2019-08-01 09:22 | NUR ---
VERSED TITRATED FROM 3MG/HR TO 2MG/HR. WILL CONT TO MONITOR PT CLOSELY
--- NOTE | 2019-08-01 10:05 | NUR ---
DR GARG PRESENT AT BEDSIDE TO DISCUSS PT POC. UPDATED ON PTS CURRENT STATUS. ALL QUESTIONS AND CONCERNS ADDRESSED
--- NOTE | 2019-08-01 10:16 | NUR ---
XRAY AT BEDSIDE
--- NOTE | 2019-08-01 12:20 | NUR ---
RT PRESENT AT BEDSIDE, PT TRANSITIONED TO CPAP AT THIS TIME. WILL CONT TO MONITOR CLOSELY
--- NOTE | 2019-08-01 13:05 | NUR ---
PT SPO2 89-90'S, RESP HIGH 20'S. PT TRANSITIONED BACK TO AC MODE; TV600 FIO2 30% RATE18 PEEP5. WILL CONT TO MONITOR
--- NOTE | 2019-08-01 13:50 | NUR ---
NETTIE FROM [facility] HERE FOR [facility] EVAL. UPDATED ON PTS CURRENT STATUS. ALL QUESTIONS AND CONCERNS ADDRESSED. NETTIE TO CONTACT DAUGHTER AT THIS TIME.
--- NOTE | 2019-08-01 16:01 | NUR ---
RT PRESENT AT BEDSIDE FOR BREATHING TREATMENT
--- NOTE | 2019-08-01 19:05 | NUR ---
RECEIVED REPORT FROM [facility]. WILL RESUME CARE.
--- NOTE | 2019-08-01 19:27 | NUR ---
RECEIVED PT TRACH'D AND SEDATED ON VERSED AT 1MG/HR AND FENTANYL AT 1MCG/KG/HR. PT UNABLE TO FOLLOW COMMANDS OR MAKE NEEDS KNOWN. RESPONSIVE TO TACTILE STIMULI. PUPILS 3MM SLUGGISH. ON VENT VCV-AC MODE WITH SETTINGS OF VT 600, FIO2 30%, R 18, PEEP 5. LUNG SOUNDS HAVE CRACKLES TO UPPER LOBES AND DIMINISHED TO BASES. NO S/X OF PAIN NOTED. S1S2 AUSCULTATED. SCELERAL EDEMA NOTED BILATERALLY. CAP REFILL <3 SEC. PULSES PALPABLE. PTTING EDEMA NOTED TO BUE'S AND BLE'S. ON NEPRO PEG TUBE CONTINUOUS FEEDING AT 40CC/HR WITH FWF OF 50CC Q 4HRS. PLACEMENT CHECKED. NO RESIDUAL NOTED. PT TOLERATING FEEDING WELL. NO N/V. NO BM AT THIS TIME. NARVAEZ CATHETER IN PLACE DRAINING VIA GRAVITY ESEQUIEL URINE. BED IN LOW POSITION. CALL LIGHT WITHIN REACH. WILL CONTINUE TO MONITOR.
--- NOTE | 2019-08-01 19:30 | NUR ---
DR. STEVENS AT BEDSIDE ASSESSING PT. UPDATES PROVIDED.
--- NOTE | 2019-08-01 23:13 | NUR ---
PT HAS TEMP OF 102.2. GIVEN TYLENOL 650MG VIA PEG. COOLING MEASURES IN PLACE.
[2019-08-02] VITALS (19 sets, daily range): BP systolic 115–167; BP diastolic 53–107
--- NOTE | 2019-08-02 04:50 | NUR ---
[facility] AT BEDSIDE FOR BLOOD DRAW.
[2019-08-02 05:59] LABS: PLATELET COUNT 361 x10^3mcL (130-400)
[2019-08-02 06:02] LABS: RED CELL DISTRIBUTION WIDTH 20.3 % (11.5-14.5)
[2019-08-02 06:10] LABS: BILIRUBIN TOTAL 0.5 mg/dL (0.20-1.00); CALCIUM 8.5 mg/dL (8.5-10.1); CARBON DIOXIDE 27.6 mmol/L (21-32); POTASSIUM SERUM 4.1 mmol/L (3.5-5.1)
[2019-08-02 06:11] LABS: ALBUMIN 1.7 g/dL (3.4-5.0); TOTAL PROTEIN, SERUM 8.7 g/dL (6.4-8.2)
[2019-08-02 06:18] LABS: BAND NEUTROPHIL 30 % (0-10); SEGMENTED NEUTROPHILS 60 % (37-75)
[2019-08-02 06:19] LABS: rbc morphology (normal/abnorm) ABNORMAL (NORMAL)
[2019-08-02 06:20] LABS: PLATELET MORPHOLOGY PLATELETS NORMAL
--- NOTE | 2019-08-02 07:45 | NUR ---
RC'D PT TRACH'D AND SEDATED ON FENT 1MCG/KG/MIN AND VERSED 1MG/HR. PT RESPONDS TO PAINFUL STIMULI, UNABLE TO FOLLOW SIMPLE COMMANDS. PUPILS 4MM AND SLUGGISH BILAT. GAG REFLEX. SCLERA EDEMA. NO FACIAL DROOP NOTED. SHILEY 8.0 XLT INTACT AND SECURED. RIGHT RENE CATH WITH PIGTAIL, INTACT, PATENT, DRESSING CDI. YELLOW DRAINAGE NOTED FROM BILAT PUPILS. TRACH TO VENT, AC; PEEP5 FIO2 30% RATE 18 TV600. RESP E/U. LUNGS DIM TO BASES, CRACKLES NOTED. SPO2 95%, NO RESP DISTRESS. ST ON CM, HR 101. S1S2 AUSC. NO S/S OF CP. WEAK PALP PULSES TO BUE/BLE, EDEMA NOTED TO BUE/BLE, ELEVATED. CAP REFILL <3. SKIN CONSISTENT WITH ETHNICITY. GENERALIZED WEAKNESS. PT ON BARIATRIC BED WITH REPOSITIONING Q15MIN FOR PRESSURE REDUCTION. NO RESIDUAL NOTED. ABDOMEN OBESE AND DISTENEDED. ACTIVE BS. NO BM NOTED. PEG TO LUQ, DRESSING CDI. F/C WITH MINIMAL ESEQUIEL URINE DRAINING TO GRAVITY, SECURED IN PLACE. SCROTAL EDEMA NOTED. NO PENILE DISCHARGE NOTED. WILL CONT TO MONITOR
--- NOTE | 2019-08-02 10:32 | NUR ---
HD RN PRESENT AT BEDSIDE.
--- NOTE | 2019-08-02 11:11 | NUR ---
4 MG CATHFLO GIVEN TO Venkatesh GARCIA RN TO INSTILL INTO RENE CATHPER DR MACY DUNBAR.
--- NOTE | 2019-08-02 15:59 | NUR ---
RC'D CALL FROM [facility]. UPDATED ON PTS CURRENT STATUS. ALL QUESTIONS AND CONCERS ADDRESSED.
--- NOTE | 2019-08-02 16:40 | NUR ---
PT HAD LARGE BROWN BM. PT CLEANED AND REPOSITIONED. CHUX AND LINEN CHANGED. WILL CONT TO MONITOR
--- NOTE | 2019-08-02 17:35 | NUR ---
NARVAEZ AND ORAL CARE PROVIDED. PT KIRBY WIPED. REPOSITONED AND MADE COMFORTABLE WILL CONT TO MONITOR
--- NOTE | 2019-08-02 19:05 | NUR ---
RECEIVED REPORT FROM [facility]. WILL RESUME CARE.
--- NOTE | 2019-08-02 21:25 | NUR ---
RECEIVED PT TRACH'D AND SEDATED ON FENTANYL AT 1MCG/KG/HR AND VERSED AT 3MG/HR. PT IS UNABLE TO FOLLOW COMMANDS. RESPONSIVE TO PAINFUL STIMULI. PUPILS 3MM SLUUGISH, SCLERAL EDEMA NOTED BILATERALLY. TRACH SHILEY 8.0 XLT INTACT AND SECURED. ON VENT VCV-AC MODE WITH SETTINGS OF VT 600, FIO2 30%, R 18, PEEP 5. LUNG SOUNDS HAVE CRACKLES TO UPPER LOBES AND DIMINISHED TO BASES. BREATHING E/U. NO S/SX OF PAIN. CAP REFILL <3 SEC. EDEMA NOTED TO BUE AND BLE. GENERALIZED WEAKNESS. BILATERAL SOFT WRIST RESTRAINTS IN PLACE FOR PT'S SAFETY. NO BM AT THIS TIME. NARVAEZ CATHETER IN PLACE DRAINING VIA GRAVITY ESEQUIEL URINE. BED IN LOW POSITION. WILL CONTINUE TO MONITOR.
--- NOTE | 2019-08-02 23:44 | NUR ---
RT MEHTA AT BEDSIDE ASSESSING PT AND GIVING BREATHING TREATMENT. PT TOLERATING WELL.
[2019-08-03] VITALS (14 sets, daily range): BP systolic 118–181; BP diastolic 50–88; Ht 177.8 cm; Wt 180.0 kg
--- NOTE | 2019-08-03 04:20 | NUR ---
PT CLEANED. ALL LINENS, CHUCKS AND GOWN CHANGED. PT HAD LARGE BM. 400CC OF ESEQUIEL URINE OUTPUT. NARVAEZ CATHETER CARE PROVIDED.
--- NOTE | 2019-08-03 05:20 | NUR ---
[employer] AT BEDSIDE FOR BLOOD DRAW.
[2019-08-03 06:20] LABS: PLATELET COUNT 349 x10^3mcL (130-400)
[2019-08-03 06:28] LABS: RED CELL DISTRIBUTION WIDTH 19.8 % (11.5-14.5)
[2019-08-03 06:36] LABS: BILIRUBIN TOTAL 0.46 mg/dL (0.20-1.00); CALCIUM 8.3 mg/dL (8.5-10.1); CARBON DIOXIDE 27.3 mmol/L (21-32); CREATININE SERUM 3.6 mg/dL (0.7-1.3); POTASSIUM SERUM 3.5 mmol/L (3.5-5.1)
[2019-08-03 06:38] LABS: ALBUMIN 1.5 g/dL (3.4-5.0); TOTAL PROTEIN, SERUM 8.6 g/dL (6.4-8.2)
--- NOTE | 2019-08-03 06:56 | NUR ---
DR. GARG MADE AWARE OF WBC 11.3 AND THAT THE PT IS CURRENTLY NOT ON ANY ANTIBIOTICS. NO NEW ORDERS AT THIS TIME.
--- NOTE | 2019-08-03 08:00 | NUR ---
RECEIVED PT IN NO ACUTE DISTRESS. ON FENTANYL 1 MCG/KG/MIN AND VERSED 3 MG/HR. RESPONDS TO PAINFUL STIMULI, UNABLE TO FOLLOW SIMPLE COMMANDS. SCLERAL EDEMA BILAT. WITH TRACH SHILEY 8.0 XLT, ON AC MODE: TV 600, PEEP 5, FIO2 30%, RATE 18. RESP EVEN AND UNLABORED. CRACKLES NOTED BILAT AND DIMINISHED AT BASES. ST ON MONITOR, HR 100. ABD ROUND, OBESE. PEG TUBE TO LUQ, DRESSING C/D/I. ON NEPRO TF AT 40 ML/HR WITH FWF 50 ML Q4H. RESIDUAL 0 ML, REPLACED. HOB ELEVATED. NARVAEZ CATHETER IN PLACE DRAINING YELLOW URINE TO GRAVITY. SCROTAL EDEMA NOTED. RIJ RENE CATH WITH PIGTAIL, DRESSING C/D/I. ON HD, LAST 08/02/19, 3.5 L OUT. EDEMA NOTED TO BUE/BLE. MULTIPLE SCABS NOTED TO BUE. DRY FLAKY SKIN TO BLE AND MULTIPLE SCABS NOTED. HEEL PROTECTORS IN PLACE. PT ON BARIATRIC BED, REPOSITIONED Q15 MIN. WILL CONTINUE TO MONITOR.
--- NOTE | 2019-08-03 12:00 | NUR ---
SHIFT REASSESSMENT DONE. PT ON FENTANYL 1 MCG/KG/MIN AND VERSED 3 MG/HR. UNABLE TO FOLLOW COMMANDS. WITH TRACH SHILEY 8.0 XLT, ON AC MODE: TV 600, RATE 18, PEEP 5, FIO2 30%. O2 SAT 93%. NO ACUTE RESP DISTRESS. PEG TUBE IN PLACE. ON NEPRO TF AT 40 ML/HR, RESIDUAL 0 ML, REPLACED. HOB ELEVATED. NARVAEZ CATHETER DRAINING YELLOW URINE TO GRAVITY. MAOswald LÓPEZ CATH, DRESSING C/D/I. TURNED Q15 MINS ON [facility] BARIATRIC BED. DRESSINGS TO BLE C/D/I. HEEL PROTECTORS IN PLACE. WILL CONTINUE TO MONITOR.
--- NOTE | 2019-08-03 12:05 | NUR ---
Follow-up Nutrition Assessment: IC08/A VANDANA FU MR Dx: Respiratory failure, heart failure PMHx: asthma, cardiac, CHF, HTN, DM, depression, psych per ED physician documentation, coronary bypass surgery Labs: (08/03) BG 125H, BUN 51H, CREAT 3.6H, ALB 1.5L, HGB 8.2L, NA 133L Meds: Aspirin, D 50%, Humulin, lactulose, Lasix, phenegran, phoslo, Procrit, Pulmicort, Zosyn Diet: OGT Nepro @ 40 ml/hr, goal 40 ml/hr, FWF 50 ml Q4H PO Intake: NPO Weights: (07/30) 181.8 kg, (08/02) 180 kg, (08/03) 180 kg - fluctuations d/t HD I/Os: (08/02) 1640/750 (890) Skin: skin tear to low buttocks, BLE cellulitis Mickey: 11 Edema: generalized edema BUE/ BLE GI: Last BM: 08/02 RD Note (08/03): Patient is s/p trach placement. Per JAMIR Olivarez, pt is tolerating Nepro @ 40 ml/hr without any residuals. Dr. Blum reduced tube feeding ate to 40 ml/hr from 60 ml/hr as patient is morbidly obese. Patient on fentanyl drip. Last HD 08/02. Estimated Nutritional Needs Based on ideal body weight (75 kg) Energy: 5012-8872 vs 2925 kcal/day (30-35 kcal/kg vs PSU) Protein: 90-112 g/day (1.2-1.5 g/kg for HD) Fluid: 1L + output for HD or per MD Nutrition Diagnosis: 1. Morbid obesity related to excessive caloric intake as evidenced by BMI 61.6 kg/m2. (ongoing) 2. Impaired nutrient utilization related to renal dysfunction as evidence by BUN 51, CREAT 3.6 (ongoing) 3. Increased nutrient needs related to increased metabolic demands as evidenced by patient on hemodialysis. (ongoing) Intervention: 1. Recommend continuing Nepro @ 40 ml/hr, FWF 50 ml Q4H (or per MD. This provides 1730 kcal and 78g protein. This meets 76% calorie and 78% protein needs of the patient. Monitor/Evaluate: Goal: Have pt meet at least 75% of estimated needs Monitor: TF intake/ tolerance, Labs, GI function F/U in 3-5 days as moderate risk 08/06-
[2019-08-03 15:33] LABS: BAND NEUTROPHIL 1 % (0-10); BASOPHIL 0 % (0-2); MONOCYTE 8 % (0-7); SEGMENTED NEUTROPHILS 67 % (37-75)
--- NOTE | 2019-08-03 15:34 | NUR ---
RECEIVED CALL FROM NEIL FROM [place]. PT GOING TO [facility], ACCEPTING PHYSICIAN IS DR. FREITAS. ROOM 501. PER LILA, PT WILL NEED TO BE SENT OUT AFTER 1900 TONIGHT. NUMBER FOR REPORT IS [phone]. TUTU DIMAS RN MADE AWARE.
[2019-08-03 15:35] LABS: PLATELET MORPHOLOGY PLATELETS NORMAL; rbc morphology (normal/abnorm) ABNORMAL (NORMAL)
--- NOTE | 2019-08-03 15:53 | NUR ---
SPOKE WITH PT'S DAUGHTER DUANE OVER THE PHONE REGARDING PT'S TRANSFER TO [facility]. DAUGHTER AGREEABLE WITH TRANSFER. TELEPHONE CONSENT OBTAINED, VERIFIED WITH DIMITRIS BOWIE.
--- NOTE | 2019-08-03 17:00 | NUR ---
SHIFT REASSESSMENT DONE. PT SEDATED ON FENTANYL 1 MCG/KG/MIN AND VERSED 3 MG/HR. UNABLE TO FOLLOW SIMPLE COMMANDS. WITH SHILEY 8.0 XLT TRACH. ON AC MODE: TV 600, PEEP 5, RATE 18, FIO2 30%. NO ACUTE RESP DISTRESS NOTED. WITH BLOOD TINGED OUTPUT WHEN SUCTIONED. BILAT SCLERAL EDEMA. ABD DISTENDED, OBESE. NEPRO TF AT 40 ML/HR, RESIDUAL 0 ML, REPLACED. HOB ELEVATED. [facility] CATH, DRESSING C/D/I. NARVAEZ CATHETER DRAINING YELLOW URINE TO GRAVITY. SCROTAL EDEMA. ON BARIATRIC HILL-ROM BED, TURNED [id number]. WOUND CARE PROVIDED FOR BLE AND BUE WOUNDS ORDERED. WILL CONTINUE TO MONITOR.
--- NOTE | 2019-08-03 17:37 | NUR ---
ATTEMPTED TO GIVE REPORT TO [facility]. PER STAFF, THE NURSE WHO WILL RECEIVE REPORT IS WITH A PATIENT AND WILL CALL BACK WHEN AVAILABLE. CALL BACK NUMBER PROVIDED.
--- NOTE | 2019-08-03 18:56 | NUR ---
PT HAD LARGE LIQUIDY BROWN BM. CLEANED AND REPOSITIONED. WOUND CARE TO COCCYX WOUND PROVIDED ORDERED. GOWN CHANGED. HOB ELEVATED. WILL CONTINUE TO MONITOR.
--- NOTE | 2019-08-03 19:20 | NUR ---
REC'D REPORT FROM ANA BOWIE TO ASSUME CARE. PT TRACH'D AND SEDATED ON FENT 1 MCG/KG/HR, VERSED 3 MG/HR WITH RSS 4. PT RESTLESS WHEN AWAKE. PERRLA NOTED. SCLERAL EDEMA NOTED WITH DISCHARGE NOTED TO GARY EYES. SHILEY 8.[address] NO JVD NOTED. TRACHEA MIDLINE. TRACH TO VENT: AC MODE TV 600, RATE 18, PEEP 5, FIO2 30%. CHEST RISE EQUAL AND SYMMETRICAL. LUNG SOUNDS COARSE CRACKLES/RHONCHI GARY. ELEVATOR CONSTRUCTOR ELECTRIC IN PLACE SHOWING NSR WITH HR 89, BP 140/65 MAP 81. CHEST WALL STABLE. HX: CABG X3 VESSELS 1 MONTH AGO. PULSES PALPABLE AND WEAK X4 EXTREMITIES. CAP REFILL 3 SECS. GEN EDEMA NOTED. IV TO L WRIST INTACT AND PATENT. RIJ RENE CATH INTACT AND PATENT, RIJ PIGTAIL INFUSING IVF D5 1/2 NS @ 5 ML/HR. LUQ PEG IN PLACE, TF NEPRO INFUSING @ 40ML/HR, FWF 50ML Q4H. GEN WEAKNESS NOTED. TURNED AND REPOSITIONED Q2H FOR PRESSURE RELIEF. BUE SOFT WRIST RESTRAINTS IN PLACE FOR PT SAFETY. ABD OBESE AND HARD TO TOUCH. BOWEL SOUNDS ACTIVE. NO BM NOTED. F/C INTACT AND DRAINING VIA GRAVITY ESEQUIEL URINE. SCROTAL EDEMA NOTED. NO PENILE DISCHARGE OR BLEEDING NOTED. HARD AND THICKENED SKIN NOTED TO BLE AND ABD AREA. OPEN SORE AND WOUNDS NOTED TO BLE. BLE WEEPING. NO VISITORS AT THIS TIME. ALL NEEDS MET AT THIS TIME. WILL CONTINUE TO MONITOR.
--- NOTE | 2019-08-03 19:22 | NUR ---
REPORT GIVEN TO REBECA BOWIE.
--- NOTE | 2019-08-03 19:44 | NUR ---
REPORT GIVEN TO FELIPA BOWIE AT [facility]. ALL QUESTIONS AND CONCERNS ADDRESSED. CALL BACK NUMBER PROVIDED. MADE AWARE PICKUP TIME 1999.
--- NOTE | 2019-08-03 20:00 | NUR ---
[facility] AT BEDSIDE, REPORT GIVEN TO JAZMIN RN, ALL QUESTIONS AND CONCERNS ADDRESSED.
--- NOTE | 2019-08-03 20:30 | NUR ---
PT TRANSFERRED TO [facility] ROOM [address] FREITAS. PICKED UP BY [facility] WITH JAZMIN BOWIE. PT TRANSFERRED TO [facility]. ALL BELONGINGS SENT WITH PT.
== END 2019-08-03 20:30 | DRG 5 ==
LOC: ED 07:00 → IC 08:12
PROVIDERS: Emergency Medicine; Internal Medicine; Internal Medicine Gastroenterology; ADMIT Internal Medicine
PROC: 5A1955Z Respiratory Ventilation, Greater than 96 Consecutive Hours (ICD-10-PCS; principal; 2019-07-17)
PROC: 5A09357 Assistance with Respiratory Ventilation, Less than 24 Consecutive Hours, Continuous Positive Airway Pressure (ICD-10-PCS; 2019-07-17)
PROC: 0BH17EZ Insertion of Endotracheal Airway into Trachea, Via Natural or Artificial Opening (ICD-10-PCS; 2019-07-17)
PROC: 30233N1 Transfusion of Nonautologous Red Blood Cells into Peripheral Vein, Percutaneous Approach (ICD-10-PCS; 2019-07-18)
PROC: 05HN33Z Insertion of Infusion Device into Left Internal Jugular Vein, Percutaneous Approach (ICD-10-PCS; 2019-07-21)
PROC: B544ZZA Ultrasonography of Left Jugular Veins, Guidance (ICD-10-PCS; 2019-07-21)
PROC: 5A1D70Z Performance of Urinary Filtration, Intermittent, Less than 6 Hours Per Day (ICD-10-PCS; 2019-07-21)
PROC: 5A1D70Z Performance of Urinary Filtration, Intermittent, Less than 6 Hours Per Day (ICD-10-PCS; 2019-07-22)
PROC: 5A1D70Z Performance of Urinary Filtration, Intermittent, Less than 6 Hours Per Day (ICD-10-PCS; 2019-07-24)
PROC: 5A1D70Z Performance of Urinary Filtration, Intermittent, Less than 6 Hours Per Day (ICD-10-PCS; 2019-07-25)
PROC: 5A1D70Z Performance of Urinary Filtration, Intermittent, Less than 6 Hours Per Day (ICD-10-PCS; 2019-07-27)
PROC: 5A1D70Z Performance of Urinary Filtration, Intermittent, Less than 6 Hours Per Day (ICD-10-PCS; 2019-07-29)
PROC: 0B110F4 Bypass Trachea to Cutaneous with Tracheostomy Device, Open Approach (ICD-10-PCS; 2019-07-30)
PROC: 5A1D70Z Performance of Urinary Filtration, Intermittent, Less than 6 Hours Per Day (ICD-10-PCS; 2019-07-31)
PROC: 0DH63UZ Insertion of Feeding Device into Stomach, Percutaneous Approach (ICD-10-PCS; 2019-08-01)
PROC: 5A1D70Z Performance of Urinary Filtration, Intermittent, Less than 6 Hours Per Day (ICD-10-PCS; 2019-08-02)
DX: A41.9 Sepsis, unspecified organism (principal); N17.0 Acute kidney failure with tubular necrosis; R65.21 Severe sepsis with septic shock; I50.41 Acute combined systolic (congestive) and diastolic (congestive) heart failure; G93.40 Encephalopathy, unspecified; R13.10 Dysphagia, unspecified; E66.2 Morbid (severe) obesity with alveolar hypoventilation; J96.01 Acute respiratory failure with hypoxia; Z93.0 Tracheostomy status; E11.9 Type 2 diabetes mellitus without complications; D64.9 Anemia, unspecified; N18.6 End stage renal disease; I11.0 Hypertensive heart disease with heart failure; J44.1 Chronic obstructive pulmonary disease with (acute) exacerbation; F15.10 Other stimulant abuse, uncomplicated; F32.9 Major depressive disorder, single episode, unspecified; Z68.43 Body mass index [BMI] 50.0-59.9, adult; E87.5 Hyperkalemia; I87.8 Other specified disorders of veins; I25.10 Atherosclerotic heart disease of native coronary artery without angina pectoris; Z59.0 Homelessness; Z95.1 Presence of aortocoronary bypass graft; Z87.891 Personal history of nicotine dependence; Z91.14 Patient's other noncompliance with medication regimen; E83.39 Other disorders of phosphorus metabolism
CPT/HCPCS: 31500; 36600; 43235; 82962; 83880; 90658; A4628; A4719; G0378; J0132; J0171; J0885-EC; J1200; J1610; J1644; J1815; J1940; J2001; J2060; J2250; J2310; J2543; J2704; J2997; J3010; J3490; J7030; J7040; J7050; J7620; J7626; P9016; Q0092